=== PATIENT | female | born 1960 | race Caucasian/White ===

== ENCOUNTER 2020-12-31 10:29 | Outpatient (CLI) | payer OTHER, SELFPAY ==
--- NOTE | ~2020-12-31 | XR_ITS ---
XR lumbar spine 2-3V DATE: 12/31/2020 11:07 INDICATION: Low back pain TECHNIQUE: AP, lateral, coned lateral lumbosacral views COMPARISON: None FINDINGS: There is degenerative spurring of the lower thoracic spine. Prominent confluent spurring at L1-2. There is moderate degenerative spurring at L2-3 and L4-5. There is moderately prominent loss of height at L1-2 and L2-3. No fracture or bone destruction is evident. The lumbar pedicles are intact. No spondylolisthesis. The sacroiliac joints appear normal. Surgical clips, right upper quadrant, likely due to cholecystectomy. A linear opacity overlies the pelvis right of midline, possibly an IUD? IMPRESSION: Multilevel degenerative disc disease Reviewed, dictated and finalized at location A. [employer]
[2020-12-31 18:58] LABS: Basophils Absolute Auto 0.1 K/mm3 (0.0-0.1); Basophils Percent Auto 1.1 % (0.2-1.2); Eosinophils Absolute Auto 0.1 K/mm3 (0-0.3); Eosinophils Percent Auto 2.7 % (0-4.4); Hematocrit 46.2 % (37.0-47.0); Hemoglobin 14.7 g/dL (12.0-15.0); Immature Granulocyte Absolute 0.01 K/mm3 (0.00-0.031); Immature Granulocyte Percent A 0.2 % (0-0.5); Lymphocytes Absolute Auto 1.16 K/mm3 (0.9-3.2); Lymphocytes Percent Auto 26.1 % (18.3-44.2); Mean Corpuscular HGB Conc 31.8 g/dl (32-36); Mean Corpuscular Hemoglobin 29.7 pg (26-34); Mean Corpuscular Volume 93.3 fl (80-100); Mean Platelet Volume 10.5 fl (7.4-10.4); Monocytes Absolute Auto 0.4 K/mm3 (0.1-0.6); Monocytes Percent Auto 8.1 % (2.6-8.5); Neutrophils Absolute Auto 2.8 K/mm3 (1.3-6.7); Neutrophils Percent Auto 61.8 % (45.5-73.1); Platelet Count Result 230 k/mm3 (150-375); Red Blood Count 4.95 M/mm3 (4.2-5.4); Red Cell Distribution Width 13.3 % (11.5-14.5); White Blood Count 4.5 K/mm3 (4.5-10.0)
[2020-12-31 19:05] LABS: Add Urine Microscopic? YES; Amorphous Sediment Urine Few; Appearance Urine Cloudy (Clear); Bacteria Urine 1+ /hpf; Bilirubin Urine Negative (Negative); Blood Urine 2+ (Negative); Color Urine Yellow (Yellow); Glucose Urine UA Negative (Negative); Ketones Urine Negative (Negative); Leukocyte Esterase Ur 3+ LEU/UL (Negative); Mucus Urine Rare /lpf; Nitrate Urine Negative (Negative); Protein Urine 1+ mg/dL (Negative); Specific Grav Ur 1.018 (1.001-1.035); Squamous Epithelial Cell Urine Many /hpf (Few); Urobilinogen Urine Negative mg/dL (<2.0); WBC Urine >75 /hpf
[2020-12-31 19:06] LABS: Alanine Aminotransferase 28 U/L (4-35); Albumin Level 4.3 g/dL (3.5-5.1); Alkaline Phosphatase 108 U/L (38-126); Anion Gap 7 mmol/L (8-16); Aspartate Amino Transferase 32 U/L (14-36); Bilirubin,Total 0.5 mg/dL (0.2-1.3); Blood Urea Nitrogen 23 mg/dL (7-17); Calcium 9.2 mg/dL (8.4-10.2); Carbon Dioxide 28 mmol/L (22-30); Chloride 104 mmol/L (98-107); Cholesterol 230 mg/dL (0-200); Estimated Glomerular Filt Rate > 60; Glucose 102 mg/dL (65-105); HDL Direct 53 mg/dL; Potassium 4.6 mmol/L (3.4-5.0); Sodium 139 mmol/L (137-145); Triglycerides 122 mg/dL (<150)
[2020-12-31 19:17] LABS: LDL Cholesterol Direct 170 mg/dL
[2020-12-31 19:22] LABS: Free T4 Free Thyroxine 0.94 ng/mL (0.78-2.19)
[2020-12-31 19:23] LABS: Vitamin D 25 Hydroxy 23.6 ng/mL
[2020-12-31 20:12] LABS: Folic Acid 9.4 ng/mL (2.76->20)
[2021-01-03 06:00] LABS: C-Peptide 3.52 ng/mL (0.80-3.85)
[2021-01-03 06:03] LABS: Triiodothyronine T3 Free 2.8 pg/mL (2.3-4.2)
== END 2020-12-31 10:30 | disposition home or self-care (01) ==
LOC: ANHBWCLAB 10:34
PROVIDERS: PCP Family Medicine; Visit Provider Internal Medicine Endocrinology, Diabetes & Metabolism
DX: E03.9 Hypothyroidism, unspecified (principal); E66.9 Obesity, unspecified; R32 Unspecified urinary incontinence; Z79.899 Other long term (current) drug therapy; Z82.62 Family history of osteoporosis; Z98.84 Bariatric surgery status; M51.36 Other intervertebral disc degeneration, lumbar region; E53.8 Deficiency of other specified B group vitamins
CPT/HCPCS: 36415; 72100; 80053; 80061; 81001; 82306; 82607; 82746; 84439; 84443; 84481; 84681; 85025; 87086; 87088

== ENCOUNTER 2021-09-22 07:48 | Outpatient (CLI) | payer OTHER, SELFPAY | END 2021-09-22 07:49 | disposition home or self-care (01) | LOC: ANHAUDIO 07:51 | PROVIDERS: PCP Family Medicine; Visit Provider Family Medicine | DX: R42 Dizziness and giddiness (principal) | CPT/HCPCS: 99199 ==

== ENCOUNTER 2022-01-10 08:44 | Outpatient (RCR) | payer OTHER, SELFPAY ==
--- NOTE | 2022-01-10 09:52 | PTOPEVAL ---
PHYSICAL THERAPY EVALUATION AND PLAN OF CARE 01-10-22 Thank you for referring Ann Marie Rae to [facility], for the diagnosis of dizziness. The evaluation was performed and Eply maneuver was performed for BPPV. Education was provided. She is to call for any further questions or if needs additional treatment. The plan of care is? 0-2 x/week for 4 weeks. Please review, sign, date and return this plan of care BETTYE. I agree with and certify that the following plan of care is medically necessary. Referring Physician Date Attending Provider: Aiden Fu MD *PT Outpatient Evaluation Start: 01/10/22 09:05 Document 01/10/22 09:00 CHRISTIANE (Rec: 01/10/22 09:52 CHRISTIANE [id number]) Past Medical History Source of Past Medical History Recalled from Previous Visit, Confirmed with Patient/Family Neurological History Hx Neurological Disorders No Significant History Cardiovascular History Hx Cardiac Disorders No Significant History Respiratory History Hx COVID-19 Yes: Nov 2021 for 5 days Gastrointestinal History Hx Gastric Bypass Surgery Yes: LAP BAND Hx Gastroesophageal Reflux Disease Yes Genitourinary History Hx Other Genitourinary Disorders Yes: SLING SURGERY, INCONTINENCE Musculoskeletal History Hx Other Musculoskeletal Disorders Yes: BAKARI. CARPAL TUNNEL RELEASE Endocrine History Hx Hypothyroidism Yes: meds HEENT History Hx Sinus Problems Yes: seasonal allergies- PRN meds Hx Other HEENT Disorders Yes: glasses- just got new glasses;blind L eye since 1977 Integumentary History Hx Skin Disorders No Significant History Reproductive History Hx Post Menopausal Yes Psychosocial History Hx Depression Yes Diagnosis dizziness Onset Aug 2020 Subjective Information Velma reports: have had Query Text:As Reported By Patient/ dizziness for awhile, but Family increasing and decided to talk with dr about it; Prior Level of Function Activity Level (Last 3 Months) 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
--- NOTE | 2022-02-07 09:50 | PCPTNOTE ---
PHYSICAL THERAPY DISCHARGE 02-07-22 Attending Provider: Aiden Fu MD Patient:Ann Marie Rae Date of :1960 Velma has not returned for any further treatments since the initial evaluation on 01/10/2022, for the diagnosis of vertigo. Therefore she will be discharged at this time. The goals were not addressed. Thank you [facility]. Please review, sign, date and return this discharge summary BETTYE. I have been updated about the patient's current status and I agree with discharge from the above service at this time. Referring Physician Date
== END 2022-02-07 15:11 | disposition home or self-care (01) ==
LOC: ANHPT 08:44
PROVIDERS: PCP Family Medicine; Visit Provider Family Medicine
DX: R42 Dizziness and giddiness (principal)
CPT/HCPCS: 97161

== ENCOUNTER 2022-06-09 15:43 | Emergency (ER) | payer OTHER, SELFPAY ==
--- NOTE | ~2022-06-09 | XR_ITS ---
XR foot RT min 3V DATE: 06/09/2022 16:09 INDICATION: Dorsal foot pain TECHNIQUE: 4 views COMPARISON: None FINDINGS: Minimal plantar and mild posterior calcaneal enthesopathy. Hammertoe deformities at second through fifth toes. Probable old healed fracture deformity of the middle phalanx of the third toe. No fracture or dislocation, periosteal reaction or bone destruction is detected. IMPRESSION: Calcaneal enthesopathy Probable old healed fracture deformity of middle phalanx of third digit Reviewed, dictated and finalized at location A.
--- NOTE | 2022-06-09 15:45 | ED.LOWEXIN ---
HPI - Extremity Injury (Lower) General Stated Complaint: Right Foot Injury Time Seen by Provider: 06/09/22 15:45 Source: patient Mode of arrival: ambulatory Limitations: no limitations History of Present Illness HPI Narrative: Ms. Rae is a 62-year-old female patient presenting to the clinic today with complaints of right foot pain since Monday. She reports no injury but she was carrying some heavy sandbags. She denies dropping anything on the top of her foot. Has tenderness to the top of her foot that is aggravated with walking. Related Data Home Medications Medication Instructions Recorded Confirmed levothyroxine 75 mcg tablet 75 mcg PO DAILY 12/31/20 08/10/21 (Synthroid) omeprazole 40 mg capsule,delayed 40 mg PO DAILY 08/10/21 08/10/21 release lorazepam 1 mg tablet 1 mg PO DAILY PRN Anxiety 06/09/22 06/09/22 venlafaxine 75 mg capsule,extended 37.5 mg PO DAILY 06/09/22 06/09/22 release 24 hr vitamin E 1,000 unit tablet 1 tablet PO DAILY 06/09/22 06/09/22 Allergies Allergy/AdvReac Type Severity Reaction Status Date / Time No Known Allergies Allergy Verified 06/09/22 15:56 Review of Systems Review of Systems: Pertinent positives per HPI. Patient denies any fever, chills, rash, headache, visual changes, dizziness, cough, runny nose, sore throat, shortness of breath, chest pain, palpitations, nausea, vomiting, diarrhea, constipation, abdominal pain, or any urinary issues. [facility] Past Medical History Medical History Ulna fracture Surgical History Surgical History History of carpal tunnel release History of cholecystectomy History of removal of laparoscopic gastric banding device Hx of gastric bypass LAP-BAND surgery status Family History Family History Grandparent Family history of premature coronary heart disease, Onset Age: 45 Family history of malignant neoplasm of breast, Onset Age: 45 Diabetes mellitus Mother Hypertension Family history of elevated blood lipids Family history of coronary artery disease Family history of cardiovascular disease Sibling Hypertension Family history of elevated blood lipids Family history of development disorder Family history of cardiovascular disease Father Family history of coronary artery disease Family history of cardiovascular disease Social History Social History Smoking status: Never smoker Second hand tobacco smoke exposure: Yes Alcohol intake: current Alcohol use details: 1 time a month Substance use: never Comments At the time of my signature, I reviewed and agree with the nursing past medical, surgical, social, and family history. There is no relevant family history pertinent to the patient complaint. Exam Narrative: General: Well-developed, overweight, in no apparent distress Head: Normocephalic, atraumatic. Cardio: Regular rate and rhythm, s1 and s2 normal, no murmur appreciated. Resp: Clear to auscultation bilaterally, no rhonchi, rales, wheezing or rubs. Musculoskeletal: No deformity, -tender to palpation over the dorsal proximal foot, pain with plantar and dorsal flexion, grossly normal range of motion, muscle strength strong and equal, peripheral pulse strong, no edema, no cyanosis, normal gait and station Course Course Emergency Course: Portions of this record may have been created with voice recognition software. Level of Care: Express Care Visit Vital Signs Vital signs: Vital signs reviewed MDM - Extremity Injury (Lower) MDM Narrative Medical decision making narrative: At the time of visit patient was resting comfortably on the exam table. Differential Diagnosis Differential diagnosis: Likely other (Foot fracture, foot sprain) Imaging Data Radiologi
[2022-06-09 15:50] VITALS: BP 150/84; PULSE 74; RESP 16; TEMP 37.2; O2SAT 100
[2022-06-09 16:01] VITALS: BP 150/84; PULSE 74; RESP 16; TEMP 37.2; O2SAT 100
== END 2022-06-09 16:25 | disposition home or self-care (01) ==
LOC: EXPBETH 15:47
PROVIDERS: Emergency Provider Nurse Practitioner Family; PCP Family Medicine
DX: M79.671 Pain in right foot (principal); Z98.84 Bariatric surgery status
CPT/HCPCS: 73630; 99213; G0463

== ENCOUNTER 2023-01-17 08:14 | Outpatient (CLI) | payer OTHER, SELFPAY ==
[2023-01-17 18:50] LABS: Eosinophils Absolute Auto 0.1 K/mm3 (0-0.3); Eosinophils Percent Auto 1.5 % (0-4.4); Hematocrit 42.8 % (37.0-47.0); Hemoglobin 13.5 g/dL (12.0-15.0); Immature Granulocyte Absolute 0.01 K/mm3 (0.00-0.031); Immature Granulocyte Percent A 0.2 % (0-0.5); Lymphocytes Absolute Auto 1.48 K/mm3 (0.9-3.2); Lymphocytes Percent Auto 36.3 % (18.3-44.2); Mean Corpuscular HGB Conc 31.5 g/dl (32-36); Mean Corpuscular Hemoglobin 30.3 pg (26-34); Monocytes Absolute Auto 0.2 K/mm3 (0.1-0.6); Monocytes Percent Auto 4.9 % (2.6-8.5); Neutrophils Absolute Auto 2.3 K/mm3 (1.3-6.7); Neutrophils Percent Auto 56.1 % (45.5-73.1); Platelet Count Result 199 k/mm3 (150-375); Red Blood Count 4.46 M/mm3 (4.2-5.4); Red Cell Distribution Width 13.5 % (11.5-14.5); White Blood Count 4.1 K/mm3 (4.5-10.0)
[2023-01-17 19:32] LABS: Free T4 Free Thyroxine 1.34 ng/mL (0.78-2.19); Vitamin D 25 Hydroxy 21.4 ng/mL
[2023-01-17 19:38] LABS: Alanine Aminotransferase 17 U/L (6-35); Albumin Level 4.3 g/dL (3.5-5.1); Alkaline Phosphatase 106 U/L (38-126); Anion Gap 5 mmol/L (8-16); Aspartate Amino Transferase 39 U/L (14-36); Bilirubin,Total 0.7 mg/dL (0.2-1.3); Blood Urea Nitrogen 16 mg/dL (7-17); Calcium 9.1 mg/dL (8.4-10.2); Carbon Dioxide 31 mmol/L (22-30); Chloride 103 mmol/L (98-107); Cholesterol 233 mg/dL (0-200); Estimated Glomerular Filt Rate > 60; Glucose 129 mg/dL (65-110); HDL Direct 58 mg/dL; Potassium 3.6 mmol/L (3.4-5.0); Sodium 139 mmol/L (137-145); Triglycerides 93 mg/dL (<150)
[2023-01-17 19:50] LABS: LDL Cholesterol Direct 131 mg/dL
[2023-01-17 20:08] LABS: Thyroid Stimulating Hormone 0.924 uIU/mL (0.465-4.680)
[2023-01-17 20:39] LABS: Folic Acid 8.7 ng/mL (2.76->20)
[2023-01-20 04:50] LABS: Triiodothyronine T3 Free 2.6 pg/mL (2.3-4.2)
== END 2023-01-17 08:15 | disposition home or self-care (01) ==
PROVIDERS: PCP Family Medicine; Visit Provider Nurse Practitioner
DX: E03.9 Hypothyroidism, unspecified (principal); E53.8 Deficiency of other specified B group vitamins; E55.9 Vitamin D deficiency, unspecified; R42 Dizziness and giddiness
CPT/HCPCS: 36415; 80053; 80061; 82306; 82607; 82746; 84439; 84443; 84481; 85025

== ENCOUNTER 2023-02-10 15:26 | Outpatient (CLI) | payer OTHER, SELFPAY ==
[2023-02-10 19:34] LABS: Hemoglobin A1C 5.1 % (<5.7)
== END 2023-02-10 15:27 | disposition home or self-care (01) ==
LOC: ANHBWCLAB 15:28
PROVIDERS: PCP Family Medicine; Visit Provider Family Medicine
DX: R73.09 Other abnormal glucose (principal)
CPT/HCPCS: 36415; 83036

== ENCOUNTER 2024-01-03 11:18 | Outpatient (CLI) | payer BC, SELFPAY ==
[2024-01-03 18:59] LABS: Hematocrit 42.7 % (37.0-47.0); Hemoglobin 13.5 g/dL (12.0-15.0); Mean Corpuscular HGB Conc 31.6 g/dl (32-36); Mean Corpuscular Hemoglobin 30.2 pg (26-34); Mean Corpuscular Volume 95.5 fl (80-100); Mean Platelet Volume 10.7 fl (7.4-10.4); Platelet Count Result 234 k/mm3 (150-375); Red Blood Count 4.47 M/mm3 (4.2-5.4); Red Cell Distribution Width 14.5 % (11.5-14.5); White Blood Count 3.8 K/mm3 (4.5-10.0)
[2024-01-03 19:23] LABS: Alanine Aminotransferase 14 U/L (6-35); Albumin Level 4.1 g/dL (3.5-5.1); Alkaline Phosphatase 91 U/L (38-126); Anion Gap 3 mmol/L (8-16); Aspartate Amino Transferase 41 U/L (14-36); Bilirubin,Total 0.8 mg/dL (0.2-1.3); Blood Urea Nitrogen 14 mg/dL (7-17); Calcium 9.3 mg/dL (8.4-10.2); Carbon Dioxide 32 mmol/L (22-30); Chloride 106 mmol/L (98-107); Estimated Glomerular Filt Rate > 60; Glucose 78 mg/dL (65-110); Potassium 4.1 mmol/L (3.4-5.0); Sodium 141 mmol/L (137-145)
[2024-01-03 19:42] LABS: Hemoglobin A1C 5.4 % (<5.7)
== END 2024-01-03 11:19 | disposition home or self-care (01) ==
PROVIDERS: PCP Family Medicine; Visit Provider Family Medicine
DX: F32.9 Major depressive disorder, single episode, unspecified (principal); G47.00 Insomnia, unspecified; R42 Dizziness and giddiness; R74.01 Elevation of levels of liver transaminase levels; E03.9 Hypothyroidism, unspecified; R73.09 Other abnormal glucose
CPT/HCPCS: 36415; 80053; 83036; 84443; 85027

== ENCOUNTER 2024-08-01 15:47 | Outpatient (CLI) | payer BC, SELFPAY ==
--- NOTE | ~2024-08-01 | XR_ITS ---
EXAMINATION: XR_CERV2-3V_CR DATE: 08/01/2024 16:18 INDICATION: Unspecified fall, initial encounter. TECHNIQUE: 3 views of cervical spine were obtained. COMPARISON: None. FINDINGS: Alignment is normal. Vertebral body heights are normal. Intervertebral disc heights are nor mal. There are bulky anterior osteophytes from C4-C5 through C6-C7. There is multilevel mild facet priyanka int osteoarthritis. No central canal stenosis or prevertebral soft tissue swelling. IMPRESSION: 1. Mild cervical spondylosis. Reviewed, dictated and finalized at location A.
--- NOTE | ~2024-08-01 | XR_ITS ---
EXAMINATION: XR shoulder RT min 2V DATE: 08/01/2024 16:18 INDICATION: Unspecified fall, initial encounter. TECHNIQUE: 4 views of right shoulder were obtained. COMPARISON: None. FINDINGS: Alignment is normal. No fracture. There is mild osteoarthritis of glenohumeral joint and se adriano osteoarthritis of acromioclavicular joint. IMPRESSION: 1. Polyarticular osteoarthritis. Reviewed, dictated and finalized at location A.
[2024-08-01 18:37] LABS: Hematocrit 43.6 % (37.0-47.0); Hemoglobin 13.7 g/dL (12.0-15.0); Mean Corpuscular HGB Conc 31.4 g/dl (32-36); Mean Corpuscular Volume 95.6 fl (80-100); Mean Platelet Volume 10.8 fl (7.4-10.4); Platelet Count Result 221 k/mm3 (150-375); Red Blood Count 4.56 M/mm3 (4.2-5.4); Red Cell Distribution Width 13.2 % (11.5-14.5); White Blood Count 5.4 K/mm3 (4.5-10.0)
[2024-08-01 18:44] LABS: Alanine Aminotransferase 17 U/L (6-35); Albumin Level 3.9 g/dL (3.5-5.1); Alkaline Phosphatase 79 U/L (38-126); Anion Gap 9 mmol/L (4-12); Aspartate Amino Transferase 45 U/L (14-36); Bilirubin,Total 0.6 mg/dL (0.2-1.3); Blood Urea Nitrogen 19 mg/dL (7-17); Calcium 8.7 mg/dL (8.4-10.2); Carbon Dioxide 26 mmol/L (22-30); Chloride 103 mmol/L (98-107); Cholesterol 196 mg/dL (0-200); Estimated Glomerular Filt Rate > 60; Glucose 88 mg/dL (65-110); HDL Direct 58 mg/dL; Potassium 3.7 mmol/L (3.4-5.0); Sodium 138 mmol/L (137-145); Triglycerides 109 mg/dL (<150)
[2024-08-01 18:55] LABS: LDL Cholesterol Direct 120 mg/dL
== END 2024-08-01 15:48 | disposition home or self-care (01) ==
LOC: ANHBWCLAB 15:53
PROVIDERS: PCP Nurse Practitioner Adult Health; Visit Provider Nurse Practitioner Adult Health
DX: Z13.9 Encounter for screening, unspecified (principal); M47.892 Other spondylosis, cervical region; M19.011 Primary osteoarthritis, right shoulder
CPT/HCPCS: 36415; 72040; 73030; 80053; 80061; 84443; 85027

== ENCOUNTER 2024-08-05 12:22 | Outpatient (CLI) | payer BC, SELFPAY ==
--- NOTE | ~2024-08-05 | MM_ITS ---
EXAMINATION: MM screening [facility] BI w gladis HISTORY: Screening mammogram TECHNIQUE: Craniocaudal and mediolateral oblique 3-D tomosynthesis images were obtained and synthetic 2-D images were generated. CAD analysis was submitted and interpreted. COMPARISON: 09/29/2010 BREAST PARENCHYMAL COMPOSITION:Dense: The breasts are heterogeneously dense, which may obscure small masses. FINDINGS: Small bilateral circumscribed low-density masses are most compatible bilateral intramammary lymph nodes. No suspicious mass, calcification, or architectural distortion are identified in either breast to suggest malignancy. There has been no suspicious interval change. IMPRESSION: No mammographic evidence of malignancy. Recommend routine screening mammography in one year. BI-RADS Category 2: Benign finding(s). Reviewed, dictated and finalized at location .
== END 2024-08-05 12:23 | disposition home or self-care (01) ==
LOC: ANHIMG 12:25
PROVIDERS: PCP Nurse Practitioner Adult Health; Visit Provider Nurse Practitioner Adult Health
DX: Z12.31 Encounter for screening mammogram for malignant neoplasm of breast (principal)
CPT/HCPCS: 77063; 77067

== ENCOUNTER 2024-10-17 09:20 | Outpatient (CLI) | payer BC, SELFPAY ==
--- NOTE | ~2024-10-17 | XR_ITS ---
AP and lateral views of the right femur Clinical History: Pain Findings: No acute fracture or dislocation is seen. Osseous alignment is anatomic. Visualized joint s paces are grossly preserved. Soft tissues are unremarkable. Impression: Unremarkable right femoral radiographs. Reviewed, dictated and finalized at location M. IN TECHNICIAN Impression: Unremarkable right femoral radiographs.
== END 2024-10-17 09:21 | disposition home or self-care (01) ==
LOC: ANHBWCIMG 09:21
PROVIDERS: PCP Nurse Practitioner Adult Health; Visit Provider Nurse Practitioner Adult Health
DX: M79.604 Pain in right leg (principal)
CPT/HCPCS: 73552

== ENCOUNTER 2025-02-03 14:39 | Outpatient (CLI) | payer BC, SELFPAY ==
--- OUTSIDE RECORDS SUMMARY | 2025-02-03 17:06 | XMS_ITS | Clinical Summary ---
Author Organization [facility] [employer] Address [address] [place] [address] Care Team Providers Care Dietary Supervisor Name Role Phone Aiden Fu MD Primary Care Provider [phone] Source Comments [facility] [employer],non-owned Affiliates and Associated Physician Practices is amultiple site organization consisting of ambulatory clinics and hospital sitesin [place], [place], [place]. This disclosure is being madepursuant to the Care Everywhere program and may not contain all information available regarding this patient. Last updated 18.[employer] Allergies No known active allergies Medications * Be aware that medications may not be up to date on this document. Alwaysverify current medications with the patient. Medication Sig Dispensed Refills Start Date End Date Status levothyroxine (SYNTHROID) 88 MCG tablet Take 1 (one) tablet by mouth once daily 01/14/2021 Active oxybutynin CR 24hr (DITROPAN-XL) 10 MG tablet Take 1 (one) tablet by mouth once daily Active venlafaxine (EFFEXOR) 37.5 MG tablet 12/16/2021 Active Vitamin E 180 MG (400 UNIT) CAPS Take 1 (one) capsule by mouth 3 times daily Active tuberculin syringe-needle 27G X 1/2 1 ML syringe BD SafetyGlide Tuberculin Regular Bevel 1 mL 27 x 1/2 syringe Active Cholecalciferol (Vitamin D3) 25 MCG (1000 UT) Take 1 (one) capsule by mouth once daily 30 capsule 09/19/2023 Active Additional Information Patient not taking.Reported on 12/26/2023 triamcinolone acetonide (Kenalog) 0.1 % ointment 03/12/2024 Active phentermine (Adipex-P) 37.5 MG tablet Take 1 (one) tablet by mouth daily before breakfast 30 tablet 5 09/17/2024 Active Active Problems Problem Noted Date Diagnosed Date Excessive daytime sleepiness 07/12/2022 Chronic fatigue 07/12/2022 Benign paroxysmal positional vertigo 07/12/2022 Vitamin B12 deficiency (non anemic) 02/22/2022 Vitamin D deficiency 02/22/2022 Menopause 09/27/2019 Folate deficiency 03/29/2019 Depressive disorder 04/04/2018 Venous insufficiency of leg 04/04/2018 Overactive bladder 06/21/2016 Major depressive disorder, recurrent, moderate 0 02/07/2016 Obesity 09/29/2015 Hypothyroidism 09/10/2015 Insomnia 10/22/2012 Restless legs syndrome 10/22/2012 Allergic rhinitis due to pollen 02/17/2012 Gastro-esophageal reflux disease without esophag itis 01/21/2012 Obstructive sleep apnea 01/21/2012 Gastric banding status 01/21/2012 Immunizations Name Administration Dates Next Due INFLUENZA VACCINE, TRIV. (AF LURIA, FLUZONE TRIVALENT; 6MO+) (IIV3) 08/30/2017,09/15/2015,08/27/2014,2012 Covid Moderna primary monova lent 12+ yr 0.5mL 03/05/2021,02/06/2021 HepB Unspecified formulation 03/27/2011 INFLUENZA VACCINE 08/29/2018 TDAP (7yrs+) 08/27/2014 Family History Medical History Relation Name Comments Diabetes Brother 1 Status: Alive Hypertension Brother 1 Sleep Disorder - Other Brother 1 cpap Diabetes - Type 2 Brother 2 Other Brother 3 pancreas explod ed and spent 10 months in hospital Heart Failure Father Status: Deceas ed Cancer Maternal Grandmother breast; Status: Bipolar Disorder Maternal Uncle Arthritis - Osteo Mother Cataract Mother Heart Failure Mother Status: Deceas ed Hypertension Mother Heart Failure Paternal Grandmother Status : Relation Name Status Comments Brother 1 Alive Brother 2 Alive Brother 3 Father Maternal Grandfather Maternal Grandmother Maternal Uncle Mother Paternal Grandfather Paternal Grandmother Social History Tobacco Use Types Packs/Day Years Used Date Smoking Tobacco: Never Smokeless Tobacco: Never Tobacco Cessation:Counseling Given: Not Answered Alcohol Use Standard Drinks/Week Comments Yes 1.7 (1 standard drink = 0.6 oz p ure alcohol) about 1x/mo AUDIT-C Answer Date Recorded Frequency of Alcohol Consumption 2-4 times a mon10/14/2020 Average Number of Drinks Not on file 020 Frequency of Binge Drinking Not on file 09/27 Sex and Gender Information Value Date Recorded Sex Assigned at Not on file Gender Identity Not on file Sexual Orientation Straight 06/09/2021 2: 00 PM CDT Last Filed Vital Signs Vital Sign Reading Time Taken Comments Blood Pressure 132/80 09/17/2024 12:24 PM CDT Pulse 76 09/17/2024 12:24 PM CDT Temperature 36.4 C (97.6 F) 09/17/2024 12:24 PM CDT Respiratory Rate 16 08/22/2023 1:19 PM CDT Oxygen Saturation 98% 09/17/2024 12:24 PM CDT Inhaled Oxygen Concentration - - Weight 88.9 kg (196 lb) 09/17/2024 12:24 PM CDT Height 162.6 cm (5' 4 ) 09/17/2024 12:24 PM CDT Body Mass Index 33.64 09/17/2024 12:24 PM CDT Plan of Treatment Upcoming Encounters Date Type Department Care Team (Late st Contact Info) Description 03/18/2025 12:40 PM CDT Office Visit [facility] [address] [place] [address], [address] [address] [address] Bernabe, BUCK 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[employer] PUMP OPERATOR [address] [place] [address] 09/17/2025 1:00 PM CDT Office Visit [facility] [address] [place] [address], [address] [place] [address] Laney Bernabe, [employer] 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 PU[employer] OPERATOR [address] [place] [address] Health Maintenance Due Date Last Done Comments COLON MONITORING 1960 CT COLONOGRAPHY - COLON CA SCREENING 1960 FIT - COLON CA SCREENING 1960 FLEX SIG - COLON CA SCREENING 1960 HIV SCREENING 1975 HEPATITIS C SCREENING 03/26/1978 PNEUMOCOCCAL VACCINE 50+ (1 of 1 - PCV) 2010 ZOSTER VACCINE (1 of 2) 2010 HEPATITIS B VACCINE (2 of 3 - 19+ 3-dose series) 04/24/2011 03/27/2011 PAP SMEAR 11/29/2019 11/29/2016 (Done Outside Per Report) MAMMOGRAM 03/23/2020 03/23/2018, 12/05/2016, 09/25/2015, Additional history exists Respiratory Syncytial Virus (RSV) Vaccine Pt: or over 60 yrs (1 - Risk 60-74 years 1-dose series) 2020 COLONOSCOPY - COLON CA SCREENING 06/27/2020 06/27/2010 (Done Outside Per Report) COVID-19 VACCINE (3 - season) 2024 03/05/2021, 02/06/2021 INFLUENZA VACCINE (#1) 2024 8, 08/30/2017, 09/15/2015, Additional history exists DTAP/TDAP/TD VACCINES (2 - Td or Tdap) 08/27/2024 08/27/2014 DEPRESSION SCREENING 11/27/2024 LIPID TESTING 12/02/2024 12/02/2019, 12/12/2018, 10/05/2017, Additional history exists COLOGUARD (AGES 45-75) - COLON CA SCREENING 02/10/2027 02/11/2024 Colorectal Cancer Screening 02/10/2027 SCREENING FOR DIABETES 06/05/2027 , 08/29/2023, 09/13/2022, Additional history exists HIB VACCINE Aged Out No longer eligi ble based on patient's age to complete this topic HPV VACCINE Aged Out No longer eligi ble based on patient's age to complete this topic MENINGOCOCCAL (Group B) VACCINE Aged Out No longer eligible based on patient's age to complete this topic MENINGOCOCCAL VACCINE Aged Out No shashank lisa eligible based on patient's age to complete this topic Procedures Procedure Name Priority Date/Time Associated Diagnosis Comments COMPREHENSIVE METABOLIC PANEL Routine 06/05/2024 12:32 PM CDT History of gastric bypass LIPID PROFILE Routine 12/02/2019 3:58 PM MEDICAL SUPERVISOR Dyslipidemia Hypothyroidism, unspecified type MAMMO BILAT SCREENING Routine 03/23/2018 8:54 AM CDT Screening for breast cancer from Last 3 Months or Most Recently Relevant to Health Maintenance Results * (ABNORMAL) COMPREHENSIVE METABOLIC PANEL (06/05/2024 12:32 PM CDT) BUN 16 7 - 26 mg/dL 06/05/2024 1:54 PM [facility] Creatinine 0.89 0.56 - 0.96 mg/dL 06/05/2024 1:54 PM [facility] Sodium 142 136 - 145 mmol/L 06/05/2024 1:54 PM [facility] Potassium 4.4 3.5 - 4.5 mmol/L 06/05/2024 1:54 PM [facility] Chloride 106 98 - 107 mmol/L 06/05/2024 1:54 PM [facility] CO2 28 22 - 29 mmol/L 06/05/2024 1:54 PM [facility] Glucose 85 70 - 115 mg/dL 06/05/2024 1:54 PM [facility] Calcium 9.6 8.4 - 10.2 mg/dL 06/05/2024 1:54 PM [facility] Protein Total 7.7 6.0 - 8.3 g/dL 06/05/2024 1:54 PM [facility] Albumin 4.0 3.4 - 5.0 g/dL 06/05/2024 1:54 PM [facility] Bilirubin Total 0.6 0.2 - 1.2 mg/dL 06/05/2024 1:54 PM [facility] Alkaline Phosphatase 96 40 - 150 U/L 06/05/2024 1:54 PM [facility] ALT 15 5 - 55 U/L 06/05[facility]24 [facility] 24 5 - 34 U/L 06/05/2024 1:54 PM [facility] Anion Gap 8 6 - 16 06/05/2024 1:54 PM [facility] BUN/Creatinine Ratio 18 7 - 23 06/05/2024 1:54 PM [facility] Osmolality Calculated 294 275 - 295 mOsm/kg 06/05/2024 1:54 PM [facility] Albumin/Globulin Ratio 1.1 1.1 - 2.3 06/05/2024 1:54 PM [facility] eGFR by CKD-EPI 72(L) >=90 mL/min/1.7 3 m2 06/05/2024 1:54 PM [facility] Blood BLOOD SPECIMEN / Unknown Lab Venipuncture / Unknown 06/05/2024 12:32 PM CDT 06/05/2024 1:22 PM [facility] Mateo Dash MD LAB - CHEMISTRY ORDE BRYANT [facility] Organization Address City/State/ZIP Co de Phone Number [facility] [address] [place] [address], [facility] [phone] * (ABNORMAL) LIPID PROFILE (12/02/2019 3:58 PM MEDICAL SUPERVISOR) Cholesterol Total 232(H) <200 mg/dL 12/02/2019 4:42 PM [facility] HDL 55 >40 mg/dL 12/02/2019 4:42 PM [facility] Comment: ATP III Classification of HDL Cholesterol: <40 mg/dL: Considered a major risk factor. >60 mg/dL: Considered a negative risk factor. LDL Calculated 151(H) <100 mg/dL 12/02/2019 4:42 PM [facility] Comment: ATP III Classification of LDL Cholesterol: <100 mg/dL: Optimal 100 - 129 mg/dL: Near Optimal/Above Optimal 130 - 159 mg/dL: Borderline High 160 - 189 mg/dL: High >190 mg/dL: Very High Triglycerides 128 <150 mg/dL 12/02/2019 4:42 PM [facility] Comment: ATP III Classification of Triglycerides: <150 mg/dL: Normal 150 - 199 mg/dL: Borderline High 200 - 400 mg/dL: High >500 mg/dL: Very High Blood BLOOD SPECIMEN / Unknown Lab Venipuncture / Unknown 12/02/2019 3:58 PM MEDICAL SUPERVISOR 12/02/2019 4:14 PM MEDICAL SUPERVISOR Ordering Provider Unlisted LAB - CHEM ISTRY ORDERABLES [address] [phone] * MAMMO BILAT SCREENING (03/23/2018 8:54 AM CDT) Anatomical Region Laterality Modality Breast Bilateral Mammography 03/26/2018 8:30 AM CDT Impressions 03/26/2018 8:43 AM CDT IMPRESSION: No mammographic evidence of malignancy. ASSESSMENT: BI-RADS Category 1: Negative mammogram. RECOMMENDATION: Bilateral screening mammogram in one year. Dictated by Maxim Salgado (Corporate Coordinator) I, Dr. EVIN GRISSOM M.D. have personally reviewed and interpreted this examination/study. This report was electronically signed by EVIN GRISSOM M.D. on 03/26/2018 8:43 AM . Narrative 03/26/2018 8:43 AM CDT BILATERAL SCREENING MAMMOGRAM DATE: March 23, 2018. COMPARISON: Multiple prior mammograms, most recently November 02, 2016 and September 25, 2015. HISTORY: Screening mammogram. TECHNIQUE: Images were performed using 3D tomosynthesis images with reconstructed/synthetic 2D images and CAD analysis. BREAST COMPOSITION: The breasts are heterogeneously dense, which may obscure small masses. FINDINGS: There is no suspicious mass, clustered microcalcification, or architectural distortion in either breast. There has been no change in the mammographic appearance compared with the prior study. Warren Pacheco MD MAMMO ORDERABLES from Last 3 Months or Most Recently Relevant to Health Maintenance Advance Directives * Full Code (Latest Code Status on File) Date Activated Date Inactivated Comments 06/28/2021 12:41 PM 06/29/2021 7:19 PM Care Teams Dietary Supervisor Relationship Specialty Start Date End Date Aiden Fu MD [address] [place] [id number] PCP - General 09/10/21
--- OUTSIDE RECORDS SUMMARY | 2025-02-03 17:06 | XMS_ITS | Patient Health Summary ---
Author Organization [facility] Address [address] [place] [address] Care Team Providers Care Chief Operating Engineer Name Role Phone Aiden Fu MD Primary Care Provider [phone] Note from [facility],non-owned Affiliates and Associated Physician Practices is amultiple site organization consisting of ambulatory clinics and hospital sitesin [place], [place], [place] and [place]. This disclosure is being madepursuant to the Care Everywhere program and may not contain all information available regarding this patient. Last updated 18.[facility] Allergies No known active allergies Medications * Be aware that medications may not be up to date on this document. Alwaysverify current medications with the patient. * levothyroxine (SYNTHROID) 88 MCG tablet(Started 01/14/2021) Take 1 (one) tablet by mouth once daily * oxybutynin CR 24hr (DITROPAN-XL) 10 MG tablet Take 1 (one) tablet by mouth once daily * venlafaxine (EFFEXOR) 37.5 MG tablet(Started 12/16/2021) * Vitamin E 180 MG (400 UNIT) CAPS Take 1 (one) capsule by mouth 3 times daily * tuberculin syringe-needle 27G X 1/2 1 ML syringe BD SafetyGlide Tuberculin Regular Bevel 1 mL 27 x 1/2 syringe * Cholecalciferol (Vitamin D3) 25 MCG (1000 UT)(Started 09/19/2023) Take 1 (one) capsule by mouth once daily * triamcinolone acetonide (Kenalog) 0.1 % ointment(Started 03/12/2024) * phentermine (Adipex-P) 37.5 MG tablet(Started 09/17/2024) Take 1 (one) tablet by mouth daily before breakfast 5 refills by 03/16/2025 Active Problems Problem Noted Date Diagnosed Date [...] apnea 01/21/2012 Gastric banding status 01/21/2012 Immunizations * INFLUENZA VACCINE, TRIV. (AFLURIA, FLUZONE TRIVALENT; 6MO+) (IIV3)(Given 08/30/2017, 09/15/2015, 08/27/2014, 08/27/2013) * Covid Moderna primary monovalent 12+ yr 0.5mL(Given 03/05/2021, 02/06/2021) * HepB Unspecified formulation(Given 03/27/2011) * INFLUENZA VACCINE(Given 08/29/2018) * TDAP (7yrs+)(Given 08/27/2014) Social History Tobacco Use Types Packs/Day Years [...] Mass Index 33.64 09/17/2024 12:24 PM CDT Procedures * COMPREHENSIVE METABOLIC PANEL(Performed 06/05/2024) Performed for History of gastric bypass * CBC W AUTO DIFFERENTIAL(Performed 06/05/2024) Performed for History of gastric bypass * CBC W AUTO DIFFERENTIAL(Performed 08/29/2023) Performed for Morbid obesity (HCC), S/P bariatric surgery, Other specified intestinal malabsorption(HCC) * FOLATE(Performed 08/29/2023) Performed for Morbid obesity (HCC), S/P bariatric surgery, Other specified intestinal malabsorption(HCC) * VITAMIN B1 PLASMA(Performed 08/29/2023) * ZINC BLOOD(Performed 08/29/2023) Performed for Morbid obesity (HCC), S/P bariatric surgery, Other specified intestinal malabsorption(HCC) * VITAMIN K1(Performed 08/29/2023) Performed for Morbid obesity (HCC), S/P bariatric surgery, Other specified intestinal malabsorption(HCC) * VITAMIN E(Performed 08/29/2023) Performed for Morbid obesity (HCC), S/P bariatric surgery, Other specified intestinal malabsorption(HCC) * VITAMIN D 25-HYDROXY(Performed 08/29/2023) Performed for Morbid obesity (HCC), S/P bariatric surgery, Other specified intestinal malabsorption(HCC) * VITAMIN B12(Performed 08/29/2023) Performed for Morbid obesity (HCC), S/P bariatric surgery, Other specified intestinal malabsorption(HCC) * VITAMIN A(Performed 08/29/2023) Performed for Morbid obesity (HCC), S/P bariatric surgery, Other specified intestinal malabsorption(HCC) * PTH INTACT(Performed 08/29/2023) Performed for Morbid obesity (HCC), S/P bariatric surgery, Other specified intestinal malabsorption(HCC) * PREALBUMIN(Performed 08/29/2023) Performed for Morbid obesity (HCC), S/P bariatric surgery, Other specified intestinal malabsorption(HCC) * IRON + TIBC PANEL(Performed 08/29/2023) Performed for Morbid obesity (HCC), S/P bariatric surgery, Other specified intestinal malabsorption(HCC) * COPPER BLOOD(Performed 08/29/2023) Performed for Morbid obesity (HCC), S/P bariatric surgery, Other specified intestinal malabsorption(HCC) * FERRITIN(Performed 08/29/2023) Performed for Morbid obesity (HCC), S/P bariatric surgery, Other specified intestinal malabsorption(HCC) * COMPREHENSIVE METABOLIC PANEL(Performed 08/29/2023) Performed for Morbid obesity (HCC), S/P bariatric surgery, Other specified intestinal malabsorption(HCC) * ZINC BLOOD(Performed 09/13/2022) * COPPER BLOOD(Performed 09/13/2022) * VITAMIN A(Performed 09/13/2022) * VITAMIN B1(Performed 09/13/2022) * VITAMIN K1(Performed 09/13/2022) * VITAMIN D 25-HYDROXY(Performed 09/13/2022) * VITAMIN E(Performed 09/13/2022) * PTH INTACT(Performed 09/13/2022) * VITAMIN B12(Performed 09/13/2022) * FOLATE(Performed 09/13/2022) * FERRITIN(Performed 09/13/2022) * CBC W/O DIFFERENTIAL(Performed 09/13/2022) * COMPREHENSIVE METABOLIC PANEL(Performed 09/13/2022) * IRON + TIBC PANEL(Performed 09/13/2022) * MAGNESIUM BLOOD(Performed 09/13/2022) * AUDIOLOGY/TYMPANOMETRY ORDER(Performed 08/17/2022) * ZINC BLOOD(Performed 02/03/2022) Performed for Morbid obesity (HCC), Bariatric surgery status, Vitamin deficiency, Vitamin D deficiency, Postsurgical malabsorption (HCC) * VITAMIN K1(Performed 02/03/2022) Performed for Morbid obesity (HCC), Bariatric surgery status, Vitamin deficiency, Vitamin D deficiency, Postsurgical malabsorption (HCC) * VITAMIN E(Performed 02/03/2022) Performed for Morbid obesity (HCC), Bariatric surgery status, Vitamin deficiency, Vitamin D deficiency, Postsurgical malabsorption (HCC) * VITAMIN B1(Performed 02/03/2022) Performed for Morbid obesity (HCC), Bariatric surgery status, Vitamin deficiency, Vitamin D deficiency, Postsurgical malabsorption (HCC) * VITAMIN A(Performed 02/03/2022) Performed for Morbid obesity (HCC), Bariatric surgery status, Vitamin deficiency, Vitamin D deficiency, Postsurgical malabsorption (HCC) * PTH INTACT(Performed 02/03/2022) Performed for Morbid obesity (HCC), Bariatric surgery status, Vitamin deficiency, Vitamin D deficiency, Postsurgical malabsorption (HCC) * MAGNESIUM BLOOD(Performed 02/03/2022) Performed for Morbid obesity (HCC), Bariatric surgery status, Vitamin deficiency, Vitamin D deficiency, Postsurgical malabsorption (HCC) * IRON + TIBC PANEL(Performed 02/03/2022) Performed for Morbid obesity (HCC), Bariatric surgery status, Vitamin deficiency, Vitamin D deficiency, Postsurgical malabsorption (HCC) * FERRITIN(Performed 02/03/2022) Performed for Morbid obesity (HCC), Bariatric surgery status, Vitamin deficiency, Vitamin D deficiency, Postsurgical malabsorption (HCC) * COPPER BLOOD(Performed 02/03/2022) Performed for Morbid obesity (HCC), Bariatric surgery status, Vitamin deficiency, Vitamin D deficiency, Postsurgical malabsorption (HCC) * CBC W/O DIFFERENTIAL(Performed 02/03/2022) Performed for Morbid obesity (HCC), Bariatric surgery status, Vitamin deficiency, Vitamin D deficiency, Postsurgical malabsorption (HCC) * FL UGI SERIES(Performed 06/29/2021) Performed for Class 3 severe obesity without serious comorbidity with body mass index (BMI) of 45.0to 49.9 in adult, unspecified obesity type ([facility]) * GLUCOSE - POINT OF CARE(Performed 06/29/2021) * VITAMIN D 25-HYDROXY(Performed 06/29/2021) * CBC W AUTO DIFFERENTIAL(Performed 06/29/2021) * BASIC METABOLIC PANEL (CALCIUM TOTAL)(Performed 06/29/2021) * GLUCOSE - POINT OF CARE(Performed 06/29/2021) * GLUCOSE - POINT OF CARE(Performed 06/28/2021) * ENDOTRACHEAL TUBE NOTE(Performed 06/28/2021) * LAPAROSCOPIC REVISION GASTRIC BYPASS/SHAKA-EN-Y(Performed 06/28/2021) * POTASSIUM BLOOD(Performed 06/28/2021) Performed for Preop examination * VITAMIN B12(Performed 06/15/2021) Performed for Preop examination * VITAMIN B1(Performed 06/15/2021) Performed for Preop examination * COMPREHENSIVE METABOLIC PANEL(Performed 06/15/2021) Performed for Preop examination * CBC W AUTO DIFFERENTIAL(Performed 06/15/2021) Performed for Preop examination * EKG 12-LEAD(Performed 06/15/2021) Performed for Preop examination * COMPLETE PFT W/WO BRONCHODILATOR(Performed 06/01/2021) Performed for Dyspnea on exertion, Ground glass opacity present on imaging of lung, Class 3 severe obesity with serious comorbidity and body mass index (BMI) of 45.0 to 49.9 in adult, unspecified obesity type (HCC) * ECHO COMPLETE(Performed 06/01/2021) Performed for Dyspnea on exertion, Ground glass opacity present on imaging of lung, Class 3 severe obesity with serious comorbidity and body mass index (BMI) of 45.0 to 49.9 in adult, unspecified obesity type (HCC) * URINALYSIS AUTO - POINT OF CARE (AMB) [facility](Performed 01/26/2021) Performed for Hematuria, unspecified type * FL UGI W AIR CONTRAST(Performed 11/06/2020) Performed for Morbid obesity due to excess calories (HCC), BMI 45.0-49.9, adult (HCC), Hiatal hernia * HELICOBACTER PYLORI UREASE (STL)(Performed 10/08/2020) Performed for Diagnosis unknown * MD ED EGD FLEX TRANSORAL DX(Performed 10/08/2020) * EGD(Performed 10/08/2020) Performed for Status post gastric banding, Preop testing, Morbid obesity (HCC) * ENDOTRACHEAL TUBE NOTE(Performed 07/15/2020) * LAPAROSCOPIC REMOVAL/REPLACEMENT GASTRIC BAND(Performed 07/15/2020) * SARS-COV-2 (COVID-19) IN HOUSE(Performed 07/13/2020) Performed for Preop examination * FL UGI SERIES(Performed 01/20/2020) Performed for Morbid obesity due to excess calories (HCC), Gastroesophageal reflux disease, esophagitis presence not specified, Gastric banding status * FL LAPBAND ADJUST VIA PORT(Performed 12/10/2019) Performed for Gastric banding status * T3 FREE(Performed 12/02/2019) Performed for Dyslipidemia, Hypothyroidism, unspecified type * TSH(Performed 12/02/2019) Performed for Dyslipidemia, Hypothyroidism, unspecified type * T4 FREE(Performed 12/02/2019) Performed for Dyslipidemia, Hypothyroidism, unspecified type * LIPID PROFILE(Performed 12/02/2019) Performed for Dyslipidemia, Hypothyroidism, unspecified type * ALEJANDRA STAINING PATTERNS REFLEXED(Performed 10/28/2019) Performed for Overactive bladder * RHEUMATOID FACTOR BLOOD QUANTITATIVE(Performed 10/28/2019) Performed for Overactive bladder * TSH(Performed 10/28/2019) Performed for Overactive bladder * T3 FREE(Performed 10/28/2019) Performed for Overactive bladder * T4 FREE(Performed 10/28/2019) Performed for Overactive bladder * THYROID PEROXIDASE ANTIBODY(Performed 10/28/2019) Performed for Overactive bladder * COMPREHENSIVE METABOLIC PANEL(Performed 10/28/2019) Performed for Overactive bladder * VITAMIN B12(Performed 10/28/2019) Performed for Overactive bladder * CBC W AUTO DIFFERENTIAL(Performed 10/28/2019) Performed for Overactive bladder * NICOLE BLOOD SCREEN W/REFLEX TITER(Performed 10/28/2019) Performed for Overactive bladder * LIPID PROFILE(Performed 10/28/2019) Performed for Overactive bladder * MD DRAIN/INJECT LARGE JOINT/BURSA(Performed 09/24/2019) Performed for Primary osteoarthritis of right knee * XR KNEE RIGHT 4VW OR MORE(Performed 09/03/2019) Performed for Knee pain, unspecified chronicity, unspecified laterality * XR ELBOW RIGHT 3VW OR MORE(Performed 07/08/2019) Performed for Right elbow pain * THYROID AB PANEL (TPO AB+THYROGLOB AB)(Performed 05/13/2019) Performed for Overactive bladder * ERYTHROCYTE SEDIMENTATION RATE(Performed 05/13/2019) Performed for Overactive bladder * T3 FREE(Performed 05/13/2019) Performed for Overactive bladder * T4 FREE(Performed 05/13/2019) Performed for Overactive bladder * TSH(Performed 05/13/2019) Performed for Overactive bladder * URINALYSIS REFLEX TO MICROSCOPIC NO CULTURE(Performed 03/29/2019) Performed for Overactive bladder, Major depressive disorder, recurrent, moderate (HCC), Phlebitis and thrombophlebitis of other sites * TSH(Performed 03/29/2019) Performed for Overactive bladder, Major depressive disorder, recurrent, moderate (HCC), Phlebitis and thrombophlebitis of other sites * THYROID AB PANEL (TPO AB+THYROGLOB AB)(Performed 03/29/2019) Performed for Overactive bladder, Major depressive disorder, recurrent, moderate (HCC), Phlebitis and thrombophlebitis of other sites * ERYTHROCYTE SEDIMENTATION RATE(Performed 03/29/2019) Performed for Overactive bladder, Major depressive disorder, recurrent, moderate (HCC), Phlebitis and thrombophlebitis of other sites * T3 FREE(Performed 03/29/2019) Performed for Overactive bladder, Major depressive disorder, recurrent, moderate (HCC), Phlebitis and thrombophlebitis of other sites * BASIC METABOLIC PANEL (CALCIUM TOTAL)(Performed 03/29/2019) Performed for Restless legs syndrome (RLS), Excessive daytime sleepiness, Chronic fatigue * CBC W/O DIFFERENTIAL(Performed 03/29/2019) Performed for Restless legs syndrome (RLS), Excessive daytime sleepiness, Chronic fatigue * TRANSFERRIN(Performed 03/29/2019) Performed for Restless legs syndrome (RLS), Excessive daytime sleepiness, Chronic fatigue * METHYLMALONIC ACID BLOOD(Performed 03/29/2019) Performed for Restless legs syndrome (RLS), Excessive daytime sleepiness, Chronic fatigue * FOLATE(Performed 03/29/2019) Performed for Restless legs syndrome (RLS), Excessive daytime sleepiness, Chronic fatigue * FERRITIN(Performed 03/29/2019) Performed for Restless legs syndrome (RLS), Excessive daytime sleepiness, Chronic fatigue * CULTURE URINE(Performed 03/29/2019) Performed for Overactive bladder, Major depressive disorder, recurrent, moderate (HCC), Phlebitis and thrombophlebitis of other sites * MD DRAIN/INJECT LARGE JOINT/BURSA(Performed 10/23/2018) Performed for Strain of right rotator cuff capsule, initial encounter * XR SHOULDER RIGHT 2VW OR MORE(Performed 10/22/2018) Performed for Right shoulder pain, unspecified chronicity * FL UGI W AIR CONTRAST W KUB(Performed 09/11/2018) Performed for Gastro-esophageal reflux disease without esophagitis, Esophageal dysphagia, Opacity of lung on imaging study * PFT(Performed 07/27/2018) * CARDIAC EKG ORDER(Performed 07/27/2018) * ECHO COMPLETE(Performed 07/26/2018) Performed for Dyspnea on exertion, Lower extremity edema * CT CHEST WO CONT AND HIRES(Performed 06/06/2018) Performed for ILD (interstitial lung disease) (HCC) * COMPLETE PFT W/WO BRONCHODILATOR(Performed 04/11/2018) Performed for Hypersensitivity pneumonitis (HCC) * PNEUMONITIS HYPERSENSITIVE PANEL(Performed 04/10/2018) Performed for Hypersensitivity pneumonitis (HCC) * LAB MISC TEST(Performed 04/10/2018) Performed for Hypersensitivity pneumonitis (HCC) * CT CHEST WO CONT AND HIRES(Performed 04/10/2018) Performed for Hypersensitivity pneumonitis (HCC) * PROC EKG IN CLINIC(Performed 03/25/2018) Performed for Dyspnea on exertion * DEXA BONE DENSITY AXIAL SKELETON(Performed 03/23/2018) Performed for Post-menopausal * MAMMO BILAT SCREENING(Performed 03/23/2018) Performed for Screening for breast cancer * CARDIAC EKG ORDER(Performed 03/16/2018) * XR CHEST 2VW(Performed 03/15/2018) Performed for Dyspnea on exertion * FERRITIN(Performed 02/07/2018) * IRON BLOOD(Performed 02/07/2018) * TRANSFERRIN(Performed 02/07/2018) * HEMOGLOBIN A1C(Performed 10/05/2017) * VITALITY SCREEN (BEAKER)(Performed 10/05/2017) * LIPID PROFILE(Performed 10/05/2017) * GLUCOSE VITALITY(Performed 10/05/2017) * HEMOGLOBIN A1C(Performed 09/18/2017) * VITAMIN B12(Performed 09/18/2017) * FERRITIN(Performed 07/07/2017) * VITAMIN D 25-HYDROXY(Performed 07/07/2017) * TRANSFERRIN(Performed 07/07/2017) * IRON BLOOD(Performed 07/07/2017) * TSH(Performed 04/10/2017) * MAMMO BILAT SCREENING(Performed 11/02/2016) * VITALITY SCREEN (BEAKER)(Performed 10/11/2016) * HEMOGLOBIN A1C(Performed 10/11/2016) * LIPID PROFILE(Performed 10/11/2016) * GLUCOSE VITALITY(Performed 10/11/2016) * URINALYSIS - POINT OF CARE (AMB) [facility](Performed 06/27/2016) * CHLAMYDIA TRACHOMATIS ISABELLE(Performed 06/27/2016) * NEISSERIA GONORRHOEAE ISABELLE(Performed 06/27/2016) * CULTURE URINE(Performed 06/27/2016) * LAB HISTORICAL RESULTS-ONBASE(Performed 01/19/2016) * XR CHEST 2VW(Performed 01/15/2016) * COMPREHENSIVE METABOLIC PANEL(Performed 01/15/2016) * PTT [facility](Performed 01/15/2016) * PT-INR [facility](Performed 01/15/2016) * CBC W/O DIFFERENTIAL(Performed 01/15/2016) * TSH(Performed 01/15/2016) * EKG 12-LEAD(Performed 01/15/2016) * HEMOGLOBIN A1C(Performed 10/08/2015) * VITALITY SCREEN (BEAKER)(Performed 10/08/2015) * LIPID PROFILE(Performed 10/08/2015) * GLUCOSE VITALITY(Performed 10/08/2015) * MAMMO BILAT SCREENING(Performed 09/25/2015) * TSH(Performed 07/17/2015) * BASIC METABOLIC PANEL (CALCIUM TOTAL)(Performed 07/17/2015) * CBC W AUTO DIFFERENTIAL(Performed 07/17/2015) * CBC W AUTO DIFFERENTIAL(Performed 07/17/2015) * HEMOGLOBIN A1C(Performed 10/09/2014) * VITALITY SCREEN (BEAKER)(Performed 10/09/2014) * LIPID PROFILE(Performed 10/09/2014) * GLUCOSE VITALITY(Performed 10/09/2014) * XR WRIST RIGHT 3VW OR MORE(Performed 08/20/2014) * T4 FREE(Performed 07/30/2014) * TSH(Performed 07/30/2014) * VITAMIN D 25-HYDROXY(Performed 07/30/2014) * T3 TOTAL(Performed 07/30/2014) * CBC W AUTO DIFFERENTIAL(Performed 07/30/2014) * CBC W AUTO DIFFERENTIAL(Performed 07/30/2014) * HELICOBACTER PYLORI ANTIBODY IGM(Performed 05/29/2014) * HELICOBACTER PYLORI ANTIBODY IGG(Performed 05/29/2014) * XR CHEST 2VW(Performed 05/29/2014) * EKG 12-LEAD(Performed 05/29/2014) * TSH(Performed 05/23/2014) * MAMMO BILAT SCREENING(Performed 03/13/2014) * XR ANKLE RIGHT 3VW OR MORE(Performed 12/17/2013) * BIOMETRICS HEALTH FAIR HISTORICAL(Performed 10/08/2013) * GLUCOSE VITALITY(Performed 10/08/2013) * MAMMO BILAT SCREENING(Performed 02/12/2013) * FSH(Performed 01/22/2013) * CBC W/O DIFFERENTIAL(Performed 10/24/2012) * TSH(Performed 10/24/2012) * TRANSFERRIN(Performed 10/24/2012) * IRON BLOOD(Performed 10/24/2012) * VITAMIN B12(Performed 10/24/2012) * COMPREHENSIVE METABOLIC PANEL(Performed 10/24/2012) * FERRITIN(Performed 10/24/2012) * GLUCOSE(Performed 10/03/2012) * CHOLESTEROL BLOOD(Performed 10/03/2012) * CULTURE URINE(Performed 08/01/2012) * URINALYSIS - POINT OF CARE (AMB) [facility](Performed 08/01/2012) * XR FOOT RIGHT 2VW(Performed 06/14/2012) * TSH(Performed 01/25/2012) Results * CBC W/ DIFFERENTIAL (06/05/2024 12:32 PM T) Only the most recent of9 resultswithin the time period is included. WBC 4.2 4.0 - 10.7 x10E9/L 06/05/2024 1:42 PM [facility] RBC Count 4.45 3.90 - 5.20 x10E12/L 06/05/2024 1:42 PM [facility] Hemoglobin 13.5 11.9 - 15.8 g/dL 06/05/2024 1:42 PM [facility] Hematocrit 41.0 34.8 - 46.1 % 06/05/2024 1:42 PM [facility] MCV 92.1 80.0 - 98.0 fL 06/05/2024 1:42 PM [facility] MCH 30.3 26.7 - 33.6 pg 06/05/2024 1:42 PM [facility] MCHC 32.9 31.7 - 36.3 g/dL 06/05/2024 1:42 PM [facility] RDW-CV 13.2 11.3 - 14.8 % 06/05/2024 1:42 PM [facility] Platelet Count 192 150 - 420 x10E9/L 06/05/2024 1:42 PM [facility] MPV 10.8 7.8 - 11.4 fL 06/05/2024 1:42 PM [facility] Neutrophil % 62.6 41.0 - 74.0 % 06/05/2024 1:42 PM T [facility] Lymphocyte % 28.4 17.0 - 47.0 % 06/05/2024 1:42 PM T [facility] Monocyte % 6.9 3.0 - 11.0 % 06/05/2024 1:42 PM T [facility] Eosinophil % 1.2 0.0 - 7.0 % 06/05/2024 1:42 PM T [facility] Basophil % 0.7 0.0 - 1.6 % 06/05/2024 1:42 PM [facility] Immature Granulocytes % 0.2 0.0 - 1.0 % 06/05/2024 1:42 PM [facility] Neutrophil Absolute 2.62 1.60 - 7.50 x10E9/L 06/05/2024 1:42 PM [facility] Lymphocyte Absolute 1.19 1.00 - 4.40 x10E9/L 06/05/2024 1:42 PM [facility] Monocyte Absolute 0.29 0.15 - 1.00 x10E9/L 06/05/2024 1:42 PM [facility] Eosinophil Absolute 0.05 0.00 - 0.60 x10E9/L 06/05/2024 1:42 PM [facility] Basophil Absolute 0.03 0.00 - 0.13 x10E9/L 06/05/2024 1:42 PM [facility] Blood BLOOD SPECIMEN / Unknown Lab Venipuncture / Unknown 06/05/2024 12:32 PM CDT 06/05/2024 1:23 PM CDT Mateo Dash MD LAB - HEMATOLOGY ORD ERABLES [facility] [address] [place] [id number], [facility] [phone] * (ABNORMAL) COMPREHENSIVE METABOLIC PANEL (06/05/2024 12:32 PM CDT) Only the most recent of7 resultswithin the time period is included. BUN 16 7 - 26 mg/dL 06/05/2024 1:54 PM [facility] Creatinine 0.89 0.56 - 0.96 mg/dL 06/05/2024 1:54 PM [facility] Sodium 142 136 - 145 mmol/L 06/05/2024 1:54 PM [facility] Potassium 4.4 3.5 - 4.5 mmol/L 06/05/2024 1:54 PM [facility] Chloride 106 98 - 107 mmol/L 06/05/2024 1:54 PM [facility] CO2 28 22 - 29 mmol/L 06/05/2024 1:54 PM [facility] Glucose 85 70 - 115 mg/dL 06/05/2024 1:54 PM [facility] Calcium 9.6 8.4 - 10.2 mg/dL 06/05/2024 1:54 PM [facility] Protein Total 7.7 6.0 - 8.3 g/dL 06/05/2024 1:54 PM [facility] Albumin 4.0 3.4 - 5.0 g/dL 06/05/2024 1:54 PM [facility] Bilirubin Total 0.6 0.2 - 1.2 mg/dL 06/05/2024 1:54 PM [facility] Alkaline Phosphatase 96 40 - 150 U/L 06/05/2024 1:54 PM [facility] ALT 15 5 - 55 U/L 06/05/2024 1:54 PM [facility] AST 24 5 - 34 U/L 06/05/2024 1:54 PM [facility] Anion Gap 8 6 - 16 06/05/2024 1:54 PM [facility] BUN/Creatinine Ratio 18 7 - 23 06/05/2024 1:54 PM [facility] Osmolality Calculated 294 275 - 295 mOsm/kg 06/05/2024 1:54 PM [facility] Albumin/Globulin Ratio 1.1 1.1 - 2.3 06/05/2024 1:54 PM [facility] eGFR by CKD-EPI 72(L) >=90 mL/min/1.7 3 m2 06/05/2024 1:54 PM CDT [facility] Blood BLOOD SPECIMEN / Unknown Lab Venipuncture / Unknown 06/05/2024 12:32 PM CDT 06/05/2024 1:22 PM CDT Mateo Dash MD LAB - CHEMISTRY ALBERTO HURTADO Performing Organization Address City/[facility]/ZIP Co de Phone Number [facility] [address] [place] [address], [facility] [phone] * FOLATE (08/29/2023 3:27 PM CDT) Only the most recent of3 resultswithin the time period is included. Folate 14.5 ng/mL [facility] Comment: Reference Range Low: <3.4 Borderline: 3.4-5.4 Normal: >5.4 REPORT COMMENT: FASTING:NO Test Performed at: [facility] [address] [place] [address] DMITRY MENON,PHD Blood BLOOD SPECIMEN / Unknown 08/29/2023 3:27 PM CDT 08/29/2023 3:27 PM CDT Beto Almaraz MD LAB - CHEMISTRY ALBERTO HURTADO Performing Organization Address City/[facility]/ZIP Co de Phone Number [facility] [address] [place] [address] * VITAMIN B1 PLASMA (08/29/2023 3:25 PM CDT) Pathologist [facility] Vitamin B1 14 8 - 30 nmol/L [facility] Comment: (Note) Vitamin supplementation within 24 hours prior to blood draw may affect the accuracy of the results. This test was developed and its analytical performance characteristics have been determined by [employer]. It has not been cleared or approved by FDA. This assay has been validated pursuant to the CLIA regulations and is used for clinical purposes. [facility] [address] [address],[address] [facility] [address] Patito Diamond MD Test Performed at: [facility] [address] [address] [address] [place] [address] PATITO DIAMOND MD 08/29/2023 3:25 PM CDT 08/29/2023 3:26 PM CDT Beto Almaraz MD LAB - CHEMISTRY ALBERTO HURTADO Performing Organization Address [facility] Co de Phone Number [facility] [address] [place] [address] * VITAMIN K1 (08/29/2023 3:25 PM CDT) Only the most recent of3 resultswithin the time period is included. Vitamin K 171 130 - 1500 pg/mL [facility] Comment: This test was developed and its analytical performance characteristics have been determined by [employer]. It has not been cleared or approved by the FDA. This assay has been validated pursuant to the CLIA regulations and is used for clinical purposes. Test Performed at: [facility] [address] [id number] ALFONSO HOPE MD Blood BLOOD SPECIMEN / Unknown 08/29/2023 3:25 PM CDT 08/29/2023 3:26 PM CDT Beto Almaraz MD LAB - CHEMISTRY ALBERTO HURTADO Performing Organization Address [facility] de Phone Number [facility] [id number] [place] [address] * ZINC BLOOD (08/29/2023 3:25 PM CDT) Only the most recent of3 resultswithin the time period is included. Zinc 74 60 - 130 mcg/dL [facility] Comment: This test was developed and its analytical performance characteristics have been determined by [employer]. It has not been cleared or approved by the FDA. This assay has been validated pursuant to the CLIA regulations and is used for clinical purposes. REPORT COMMENT: FASTING:NO Test Performed at: [facility] [address] [address] MARIN HAMILTON Blood BLOOD SPECIMEN / Unknown 08/29/2023 3:25 PM CDT 08/29/2023 3:26 PM CDT Beto Almaraz MD LAB - CHEMISTRY ALBERTO HURTADO Performing Organization Address City/[facility] [place] [address] * VITAMIN A (08/29/2023 3:25 PM CDT) Only the most recent of3 resultswithin the time period is included. [facility] Vitamin A 60 38 - 98 mcg/dL [facility] Comment: Clin Chem Vol. 34.No.8. [id number]. 1998 Vitamin supplementation within 24 hours prior to blood draw may affect the accuracy of results. This test was developed and its analytical performance characteristics have been determined by [employer]. It has not been cleared or approved by the FDA. This assay has been validated pursuant to the CLIA regulations and is used for clinical purposes. Test Performed at: [facility] [address] [place] [id number] ALFONSO HOPE MD Blood BLOOD SPECIMEN / Unknown 08/29/2023 3:25 PM CDT 08/29/2023 3:26 PM CDT Beto Almaraz MD LAB - CHEMISTRY ALBERTO HURTADO Performing Organization Address [facility] de Phone Number [facility] [address] [place] [address] * VITAMIN E (08/29/2023 3:25 PM CDT) Only the most recent of3 resultswithin the time period is included. [facility] Alpha-Tocopherol 15.4 mg/L [facility] Comment: Reference Range 5.7-19.9 mg/L Levels of alpha-tocopherol <5 mg/L are consistent with Vitamin E deficiency in adults. Vitamin supplementation within 24 hours prior to blood draw may affect the accuracy of results. See Note 1 Beta-Gamma Tocopherol <1.0 <4.4 mg/L [facility] Comment: See Note 1 Test Performed at: [facility] [address] [place] [address] ALFONSO HOPE MD Blood BLOOD SPECIMEN / Unknown 08/29/2023 3:25 PM CDT 08/29/2023 3:26 PM CDT Beto Almaraz MD LAB - CHEMISTRY ALBERTO HURTADO Performing Organization Address [facility]/ZIP Co de Phone Number [facility] [address] [place] [address] * (ABNORMAL) PTH INTACT (08/29/2023 3:25 PM CDT) Only the most recent of3 resultswithin the time period is included. PTH Intact 98(H) 16 - 77 pg/mL [facility] Comment: Interpretive Guide Intact PTH Calcium ------- Normal Parathyroid Normal Normal Hypoparathyroidism Low or Low Normal Low Hyperparathyroidism Primary Normal or High High Secondary High Normal or Low Tertiary High High Non-Parathyroid Hypercalcemia Low or Low Normal High Test Performed at: [facility] [address] [place] [address] DMITRY MENON,PHD Blood BLOOD SPECIMEN / Unknown 08/29/2023 3:25 PM CDT 08/29/2023 3:26 PM CDT Beto Almaraz MD LAB - CHEMISTRY ALBERTO HURTADO Performing Organization Address [facility] de Phone Number [facility] [address] [place] [address] * COPPER BLOOD (08/29/2023 3:25 PM CDT) Only the most recent of3 resultswithin the time period is included. Pathologist [facility] Copper 134 70 - 175 mcg/dL [facility] Comment: This test was developed and its analytical performance characteristics have been determined by [employer]. It has not been cleared or approved by the FDA. This assay has been validated pursuant to the CLIA regulations and is used for clinical purposes. Test Performed at: [facility] [address] [address] MARIN HAMILTON Blood BLOOD SPECIMEN / Unknown 08/29/2023 3:25 PM CDT 08/29/2023 3:26 PM CDT Beto Almaraz MD LAB - CHEMISTRY ALBERTO HURTADO Performing Organization Address [facility] Co de Phone Number [facility] [address] [place] [address] * (ABNORMAL) VITAMIN D 25-HYDROXY (08/29/2023 3:25 PM CDT) Only the most recent of5 resultswithin the time period is included. Vitamin D, 25 Hydroxy 22(L) 30 - 100 ng/mL [facility] Comment: Vitamin D Status 25-OH Vitamin D: Deficiency: <20 ng/mL Insufficiency: 20 - 29 ng/mL Optimal: > or = 30 ng/mL For 25-OH Vitamin D testing on patients on D2-supplementation and patients for whom quantitation of D2 and D3 fractions is required, the QuestAssureD(TM) 25-OH VIT D, (D2,D3), LC/MS/MS is recommended: order code 53107 (patients >2yrs). See Note 2 Note 1 This test was developed and its analytical performance characteristics have been determined by [employer]. It has not been cleared or approved by the FDA. This assay has been validated pursuant to the CLIA regulations and is used for clinical purposes. Note 2 For additional information, please refer to http://education.[employer]/faq/VHS248 (This link is being provided for informational/ educational purposes only.) Test Performed at: [place] [address] DMITRY MENON,PHD Blood BLOOD SPECIMEN / Unknown 08/29/2023 3:25 PM CDT 08/29/2023 3:26 PM CDT Beto Almaraz MD LAB - CHEMISTRY ALBERTO HURTADO [facility] Organization Address City/State/ZIP Co de Phone Number [facility] [address] [place] [address] * PREALBUMIN (08/29/2023 3:25 PM CDT) Prealbumin 22 17 - 34 mg/dL [facility] Comment: Test Performed at: [facility] [id number] [place] [address] DMITRY MENON,PHD Blood BLOOD SPECIMEN / Unknown 08/29/2023 3:25 PM CDT 08/29/2023 3:26 PM CDT Beto Almaraz MD LAB - CHEMISTRY ALBERTO SABAJOSSELIN Performing Organization Address [facility] de Phone Number [facility] [phone] [place] [address] * IRON + TIBC PANEL (08/29/2023 3:25 PM CDT) Only the most recent of3 resultswithin the time period is included. Iron 125 45 - 160 mcg/dL [facility] TIBC 372 250 - 450 mcg/dL (calc) [facility] % Saturation 34 16 - 45 % (calc) [facility] Comment: Test Performed at: [facility] [address] DMITRY MENON,PHD Blood BLOOD SPECIMEN / Unknown 08/29/2023 3:25 PM CDT 08/29/2023 3:26 PM CDT Beto Almaraz MD LAB - CHEMISTRY ALBERTO HURTADO Performing Organization Address [facility] de Phone Number [facility] [phone] [place] [address] * VITAMIN B12 (08/29/2023 3:25 PM CDT) Only the most recent of6 resultswithin the time period is included. Vitamin B12 798 200 - 1100 pg/mL [facility] Comment: Test Performed at: [facility], [facility] [address] DMITRY MENON,PHD Blood BLOOD SPECIMEN / Unknown 08/29/2023 3:25 PM CDT 08/29/2023 3:26 PM CDT Beto Almaraz MD LAB - CHEMISTRY ALBERTO HURTADO Performing Organization Address [facility] de Phone Number [facility] [id number] [place] [address] * FERRITIN (08/29/2023 3:25 PM CDT) Only the most recent of7 resultswithin the time period is included. Ferritin 43 16 - 288 ng/mL [facility] Comment: Test Performed at: [facility], [facility] [address] DMITRY MENON,PHD Blood BLOOD SPECIMEN / Unknown 08/29/2023 3:25 PM CDT 08/29/2023 3:26 PM CDT Beto Almaraz MD LAB - CHEMISTRY ALBERTO HURTADO Performing Organization Address [facility] Co de Phone Number [facility] [address] [place] [address] * VITAMIN B1 (09/13/2022 2:02 PM CDT) Only the most recent of3 resultswithin the time period is included. [facility] Vitamin B1 Whole Blood 95 78 - 185 nmol/L [facility] Comment: Vitamin supplementation within 24 hours prior to blood draw may affect the accuracy of results. This test was developed and its analytical performance characteristics have been determined by [employer]. It has not been cleared or approved by the FDA. This assay has been validated pursuant to the CLIA regulations and is used for clinical purposes. Test Performed at: [facility] [address] [address] ALFONSO HOPE MD 09/13/2022 2:02 PM CDT 09/13/2022 2:03 PM CDT Jaycee Alberto APRN-MARKETING COORDINATOR LAB - CHEMIS TRY ORDERABLES Performing Organization Address [facility] Co de Phone Number [facility] [phone] [place] [address] * CBC W/O DIFFERENTIAL (09/13/2022 2:02 PM CDT) Only the most recent of5 resultswithin the time period is included. Pathologist [facility] White Blood Cell Count 4.4 3.8 - 10.8 Thousand/u L [facility] RBC 4.54 3.80 - 5.10 Million/uL [facility] Hemoglobin 13.2 11.7 - 15.5 g/dL [facility] Hematocrit 41.0 35.0 - 45.0 % [facility] MCV 90.3 80.0 - 100.0 fL [facility] MCH 29.1 27.0 - 33.0 pg [facility] MCHC 32.2 32.0 - 36.0 g/dL [facility] RDW 12.2 11.0 - 15.0 % [facility] Platelet Count 231 140 - 400 Thousand/u L [facility] MPV 11.5 7.5 - 12.5 fL [facility] Comment: Test Performed at: [facility] [address] [place] [address] WARREN MORA DO,MPH 09/13/2022 2:02 PM CDT 09/13/2022 2:03 PM CDT Jaycee PEREZ LAB - HEMATO LOGY ORDERABLES Performing Organization Address [facility] de Phone Number [facility] [address] [place] [address] * MAGNESIUM BLOOD (09/13/2022 2:02 PM CDT) Only the most recent of2 resultswithin the time period is included. [facility] Magnesium 2.1 1.5 - 2.5 mg/dL [facility] Comment: Test Performed at: [facility] [address] [place] [address] WARREN MORA DO,MPH 09/13/2022 2:02 PM CDT 09/13/2022 2:03 PM CDT Jaycee PEREZ LAB - CHEMIS TRY ORDERABLES Performing Organization Address [facility] de Phone Number [facility] [address] [place] [address] * AUDIOLOGY/TYMPANOMETRY ORDER (08/17/2022 1:22 PM CDT) Narrative Magdalene Victoria AuD - 08/17/2022 1:44 PM CDT History: Ann Marie Rae arrived for a hearing evaluation. Patient reports issues with dizziness. She does feel some fullness in the right ear. She denies hearing loss, tinnitus, and otalgia. There is a history of noise exposure. There is not a family history of hearing loss. There is not a history of surgery on either ear(s). Results: Puretone air/bone conduction testing revealed a normal sloping to mild high frequency SN hearing loss in the right ear and a normal sloping to moderate high frequency SN hearing loss in the left ear. Speech understanding was excellent in the right ear and excellent in the left ear. Immittance measures revealed a Type A tympanogram in the right ear, indicating normal middle ear function. Results for the left ear revealed a Type A tympanogram, indicating normal middle ear function in that ear. These results were discussed in detail with the patient and all pertinent questions were answered. Recommendations: 1) ENT consult. 2) Hearing evaluation annually or if a change in hearing is suspected. Pricilla Fontana. [facility] Clinical Fern G[facility] [address] [facility]. ([facility]) [place] [address] Magdalene Pleitez AUDIOLOGY SERVICES O RDERABLES * FL UGI SERIES WO KUB (06/29/2021 9:48 AM CDT) Only the most recent of2 resultswithin the time period is included. Anatomical Region Laterality Modality Abdomen Radiographic Terry ging 06/29/2021 2:03 PM CDT Impressions 06/29/2021 2:04 PM CDT No evidence of leak or obstruction. *Reading Radiologist: Alfonso Ferguson on 06/29/2021 at 2:04 PM Narrative 06/29/2021 2:04 PM CDT LIMITED UPPER GI AFTER GASTRIC BYPASS INDICATION: Morbid obesity, gastric surgery, gastric leak. FINDINGS: Fluoroscopy of the gastric remnant was performed following ingestion of oral contrast media. There is no evidence of leak. There is prompt emptying into the small bowel. Total Fluoro Time = 45 seconds, spot fluoroscopic images were not obtained because cine fluoroscopy was utilized and the images were saved in video format Procedure Note Alfonso Ferguson MD - 06/29/2021 LIMITED UPPER GI AFTER GASTRIC BYPASS INDICATION: Morbid obesity, gastric surgery, gastric leak. FINDINGS: Fluoroscopy of the gastric remnant was performed following ingestion of oral contrast media. There is no evidence of leak. There is prompt emptying into the small bowel. Total Fluoro Time = 45 seconds, spot fluoroscopic images were not obtained because cine fluoroscopy was utilized and the images were saved in video format IMPRESSION No evidence of leak or obstruction. *Reading Radiologist: Alfonso Ferguson on 06/29/2021 at 2:04 PM Beto Almaraz MD FLUOROSCOPY ORDERABL ES * (ABNORMAL) GLUCOSE - POINT OF CARE (06/29/2021 6:45 AM CDT) Only the most recent of3 resultswithin the time period is included. Glucose WB/POC 113(H) 70 - 106 mg/dL 06/29/2021 6:52 AM CDT [facility] Specimen Type Arterial 06/29/2021 6:52 AM CDT [facility] Blood BLOOD SPECIMEN / Unknown 06/29/2021 6:45 AM CDT 06/29/2021 6:51 AM CDT Beto Almaraz MD LAB - POINT OF CARE ORDERABLES [facility] [address] [place] [address] * (ABNORMAL) BASIC METABOLIC PANEL (CALCIUM TOTAL) (06/29/2021 3:16 AM CDT) Only the most recent of3 resultswithin the time period is included. Glucose 121(H) 70 - 105 mg/dL 06/29/2021 3:44 AM CDT [facility] Sodium 138 136 - 145 mmol/L 06/29/2021 3:44 AM CDT [facility] Potassium 4.5 3.5 - 5.1 mmol/L 06/29/2021 3:44 AM CDT [facility] Chloride 107 98 - 107 mmol/L 06/29/2021 3:44 AM CDT [facility] CO2 18(L) 23 - 31 mmol/L 06/29/2021 3:44 AM CDT [facility] Calcium 8.6 8.4 - 10.4 mg/dL 06/29/2021 3:44 AM CDT [facility] Anion Gap 13 8 - 18 mmol/L 06/29/2021 3:44 AM CDT [facility] BUN 13 9.8 - 20.1 mg/dL 06/29/2021 3:44 AM CDT [facility] Creatinine 1.05 0.57 - 1.11 mg/dL 06/29/2021 3:44 AM CDT [facility] eGFR by MDRD 53(L) >60 mL/min/1.7 3m2 06/29/2021 3:44 AM CDT [facility] eGFR by MDRD >60 >60 mL/min/1.7 3m2 06/29/2021 3:44 AM CDT [facility] Blood BLOOD SPECIMEN / Unknown Venipuncture / Unknown 06/29/2021 3:16 AM CDT 06/29/2021 3:20 AM CDT Beto Almaraz MD LAB - CHEMISTRY ALBERTO HURTADO [facility] [address] [place] [address] * ETT LINE PERFORMABLE (06/28/2021 7:52 AM CDT) Narrative Dahiana Abraham APRN-CRNA - 06/28/2021 7:52 AM CDT Dahiana Abraham APRN-CRNA 06/28/2021 7:53 AM Endotracheal Tube Placement: Patient Location: OR. Intubation Event Date/Time: 06/28/2021 7:36 AM Procedure: intubation ([id number]). Procedure Section: Sedation: under general anesthesia. Indications for Airway Management: anesthesia Induction: standard IV Patient Position: sniffing Mask Ventilation: easy. Blade Type: Cathi Blade Size: 3 Laryngoscopy View: grade 1 (full cords) Tube: endotracheal tube Placement: oral Tube type: cuff - inflated Tube Size (MM): 7 Depth of Insertion (CM): 20 Measured From: teeth Cuff volume (mL): 5 Cuff Inflated With: air Number of Attempts: 1. Placement Verified By: direct visualization, bilateral breath sounds and CO2 monitor Tube secured with: adhesive tape. Dentition unchanged? Yes Difficult Airway? No. Procedure Start Time: 06/28/2021 7:36 AM. Procedure End Time: 06/28/2021 7:36 AM. Procedure Total Time: 0 minutes. Staff Section Anesthesia Provider: Dahiana Abraham APRN-CRNA, Performed the procedure Larry Shaver MD GENERAL ANESTHESIA O RDERABLES * (ABNORMAL) POTASSIUM BLOOD (06/28/2021 6:54 AM CDT) Potassium 3.4(L) 3.5 - 5.1 mmol/L 06/28/2021 7:26 AM CDT [facility] Blood BLOOD SPECIMEN / Unknown Venipuncture / Unknown 06/28/2021 6:54 AM CDT 06/28/2021 7:11 AM CDT Arlene Bradley DO LAB - CHEMISTRY ALBERTO HURTADO Performing Organization Address City/[facility] Co de Phone Number [facility] [address] [place] [address] * EKG 12-LEAD (06/15/2021 10:03 AM CDT) Only the most recent of3 resultswithin the time period is included. Ventricular Rate 73 BPM [facility] Atrial Rate 73 BPM [facility] P-R Interval 198 ms [facility] QRS Duration ms 90 ms [facility] Q-T Interval ms 422 ms [facility] QTC Calculation (Bezet) 464 ms [facility] Calculated P [place] 59 degrees [facility] Calculated R [place] 0 degrees [facility] Calculated T [place] 11 degrees [facility] Interpretation EKG Normal sinus rhythm Minimal voltage criteria for LVH, may be normal variant Borderline ECG No previous ECGs available Confirmed by MERLYN GARCIA MD ([id number]) on 06/15/2021 5:30:17 PM [facility] 06/15/2021 10:0 3 AM CDT 06/15/2021 5:30 PM CDT Beto Almaraz MD ECG ORDERABLES Performing Organization Address [facility] Co de Phone Number [facility] * COMPLETE PFT W/WO BRONCHODILATOR (06/01/2021 12:21 PM CDT) Impressions Kam Sal MD - 06/01/2021 12:21 PM CDT [facility] DEPARTMENT OF PULMONARY, CRITICAL CARE, AND SLEEP MEDICINE PULMONARY FUNCTION TEST Please see technologist's comments mentioned in the report. INTERPRETATION: SPIROMETRY: FVC: decreased FEV1: moderately decreased(60-69% pred). FEV1/FVC ratio is normal. BRONCHODILATOR RESPONSE: There is no significant response to bronchodilator therapy however does not preclude from bronchodilator therapy if clinically indicated otherwise FLOW-VOLUME LOOPS: increased slope of the expiratory limbs LUNG VOLUMES: Lung volumes by body plethysmography show decreased TLC and normal residual volume DLCO: Unadjusted for Hb and COHb is normal DLCO: Corrected for Hb and COHb is: not performed AIRWAY RESISTANCE: The airway resistance is normal and the specific conductance is normal ARTERIAL BLOOD GAS ANALYSIS: not performed IMPRESSION: 1. Moderate Restrictive Ventilatory Limitation 2. Normal uncorrected DLCO 3. No significant bronchodilator response, however this does not preclude the use of bronchodilators 4. Compared with previous study on 04/10/2018, there is significant reduction in post bronchodilator FVC by 380 cc, pre-bronchodilator FEV1 by 300 cc. Cindy Huerta MD Pulmonary & Critical Care Fellow Division of Pulmonary, Critical Care and Sleep Medicine [facility] Pager: [phone] I have personally reviewed and agree with the fellow's interpretation. Kam Sal MD Narrative Kam Sal MD - 06/01/2021 12:21 PM CDT Cindy Huerta MD 06/01/2021 7:18 PM Kurt Akbar MD RESPIRATORY THERAPY ORDERABLES * ECHO COMPLETE (06/01/2021 10:09 AM CDT) Only the most recent of2 resultswithin the time period is included. Anatomical Region Laterality Modality Chest Echo 06/01/2021 9:46 AM CDT Narrative Procedure Note Miguel Shah MD - 06/01/2021 Kurt Akbar MD ECHOCARDIOGRAPHY RAD IANT * URINALYSIS AUTO - POINT OF CARE (AMB) [facility] (01/26/2021) Glucose UA neg Bilirubin UA POCT neg Ketones UA POCT neg Specific [place] UA 1.015 Blood Urine POCT neg pH UA 6.0 Protein UA neg Urobilinogen UA neg Nitrite UA neg WBC UA neg Urine URINE / Unknown 01/26/2021 Patito Villafuerte MD LAB - POINT OF CAR E ORDERABLES * FL UGI W AIR CONTRAST (11/06/2020 8:21 AM COMPUTER LAB ASSISTANT) Anatomical Region Laterality Modality Abdomen Radiographic Terry ging 11/06/2020 8:49 AM COMPUTER LAB ASSISTANT Impressions 11/06/2020 8:51 AM COMPUTER LAB ASSISTANT Megaesophagus with discoordinated contractions. Delayed esophageal emptying when not upright due to the severity of the discoordinated contractions. Gastric structure in the expected location of the prior lap band. *Reading Radiologist: Kurt Rivera on 11/06/2020 at 8:51 AM Narrative 11/06/2020 8:51 AM COMPUTER LAB ASSISTANT Upper GI with air-contrast HISTORY: Morbid obesity due to excess calories. FINDINGS: Fluoroscopy time 117 seconds. Double contrast exam. There are multiple findings. The esophagus is distended. The esophagus has discoordinated presently esophageal-type contractions. Just distal to the gastric pouch there is a persistent area of constriction in the expected location of the prior gastric banding and. This area did not distend. Distal to that region of stricture the mid and distal stomach have a normal appearance with post cholecystectomy clips with the duodenal bulb distend readily. Procedure Note Kurt Rivera MD - 11/06/2020 Upper GI with air-contrast HISTORY: Morbid obesity due to excess calories. FINDINGS: Fluoroscopy time 117 seconds. Double contrast exam. There are multiple findings. The esophagus is distended. The esophagus has discoordinated presently esophageal-type contractions. Just distal to the gastric pouch there is a persistent area of constriction in the expected location of the prior gastric banding and. This area did not distend. Distal to that region of stricture the mid and distal stomach have a normal appearance with post cholecystectomy clips with the duodenal bulb distend readily. IMPRESSION Megaesophagus with discoordinated contractions. Delayed esophageal emptying when not upright due to the severity of the discoordinated contractions. Gastric structure in the expected location of the prior lap band. *Reading Radiologist: Kurt Rivera on 11/06/2020 at 8:51 AM Beto Almaraz MD FLUOROSCOPY ORDERABL ES * HELICOBACTER PYLORI UREASE (STL) (10/08/2020 8:01 AM COMPUTER LAB ASSISTANT) Helicobacter pylori Urease Initial Negative Negative 10/09/2020 3:28 PM COMPUTER LAB ASSISTANT [facility] Helicobacter pylori Urease Final Negative Negative 10/09/2020 3:28 PM COMPUTER LAB ASSISTANT [facility] Comment:This is an appended report. These results have been appended to a previously preliminary verified report. Microbiology GASTRIC ANTRAL BIOPSY SPECIMEN / Unknown 10/08/2020 8:01 AM COMPUTER LAB ASSISTANT 10/08/2020 12:48 PM COMPUTER LAB ASSISTANT Beto Almaraz MD LAB - MICROBIOLOGY O RDERABLES [facility] [address] [place] [id number] * EGD (10/08/2020 7:53 AM COMPUTER LAB ASSISTANT) Report Endoscopy POC _ Patient Name: Ann Marie Rae Procedure Date: 10/08/2020 7:53 AM Date of : 1960 Admit Type: Outpatient Age: 60 Gender: Female Attending MD: Beto Almaraz , _ Procedure: Upper GI endoscopy Indications: Preoperative assessment for bariatric surgery to treat morbid obesity Providers: Beto Almaraz (Doctor) Referring MD: Arcenio Mccann MD (Referring MD) Medicines: Monitored Anesthesia Care Complications: No immediate complications. _ Procedure: Pre-Anesthesia Assessment: - Prior to the procedure, a History and Physical was performed, and patient medications and allergies were reviewed. The patient's tolerance of previous anesthesia was also reviewed. The risks and benefits of the procedure and the sedation options and risks were discussed with the patient. All questions were answered, and informed consent was obtained. Prior Anticoagulants: The patient has taken no previous anticoagulant or antiplatelet agents. ASA Grade Assessment: III - A patient with severe systemic disease. After reviewing the risks and benefits, the patient was deemed in satisfactory condition to undergo the procedure. After obtaining informed consent, the endoscope was passed under direct vision. Throughout the procedure, the patient's blood pressure, pulse, and oxygen saturations were monitored continuously. The Endoscope was introduced through the mouth, and advanced to the second part of duodenum. The upper GI endoscopy was accomplished without difficulty. The patient tolerated the procedure well. Findings: Esophagogastric landmarks were identified: the Z-line was found at 39 cm and the site of hiatal narrowing was found at 40 cm from the incisors. A small hiatal hernia was present. Localized mild inflammation characterized by erythema was found in the prepyloric region of the stomach. Biopsies were taken with a cold forceps for Helicobacter pylori testing using CLOtest. Estimated blood loss: none. The first portion of the duodenum and second portion of the duodenum were normal. The cardia and gastric fundus were normal on retroflexion. _ Impression: - Esophagogastric landmarks identified. - Small hiatal hernia. - Gastritis. Biopsied. - Normal first portion of the duodenum and second portion of the duodenum. Recommendation: - Discharge patient to home. - Resume previous diet. - Continue present medications. - Await pathology results. Procedure Code(s): --- Professional --- 44110, Esophagogastroduod enoscopy, flexible, transoral; with biopsy, single or multiple --- Technical --- 24663, Esophagogastroduod enoscopy, flexible, transoral; with biopsy, single or multiple Diagnosis Code(s): --- Professional --- K44.9, Diaphragmatic hernia without obstruction or gangrene K29.70, Gastritis, unspecified, without bleeding Z01.818, Encounter for other preprocedural examination E66.01, Morbid (severe) obesity due to excess calories --- Technical --- K44.9, Diaphragmatic hernia without obstruction or gangrene K29.70, Gastritis, unspecified, without bleeding Z01.818, Encounter for other preprocedural examination E66.01, Morbid (severe) obesity due to excess calories CPT copyright 2017 [employer]. All rights reserved. The codes documented in this report are preliminary and upon medical biller coder review may be revised to meet current compliance requirements. Beto Almaraz Beto Almaraz, 10/08/2020 8:10:11 AM This report has been signed electronically. Number of Addenda: 0 Note Initiated On: 10/08/2020 7:53 AM [facility] 10/08/2020 7:53 AM COMPUTER LAB ASSISTANT Narrative Procedure Note Beto Almaraz MD - 10/08/2020 8:10 AM CST EGD completed. Normal cardia on retroflextion, small hiatal hernia.Biopsies pending. A full PDF copy of the report with photos is in the results and/or mediatab for your review. Please refer to this for full details of theprocedure. UGI pending Pt to have hiatal hernia repair added on to primary procedure. Needsfollow up after UGI Beto Almaraz MD Beto Almaraz MD GI PROCEDURE ORDERAB LES [facility] [place] [address] * ETT LINE PERFORMABLE (07/15/2020 7:56 AM CDT) Narrative Ema Aguilar APRN-CRNA - 07/15/2020 7:56 AM CDT Ema Aguilar APRN-CRNA 07/15/2020 8:08 AM Endotracheal Tube Placement: Patient Location: OR. Intubation Event Date/Time: 07/15/2020 7:42 AM Procedure: intubation (51757). Procedure Section: Sedation: IV sedation. Indications for Airway Management: airway protection Procedure pretreatments used? No Induction: rapid sequence Patient Position: sniffing Mask Ventilation: not attempted. Blade Type: Cathi Blade Size: 3 Laryngoscopy View: grade 1 (full cords) Intubation Adjuncts: cricoid pressure Nasal Airway Size: 7 Tube: endotracheal tube Placement: oral Tube type: cuff - inflated Tube Size (MM): 4 Depth of Insertion (CM): 21 Measured From: teeth Cuff volume (mL): 10 Cuff Inflated With: air Number of Attempts: 1. Placement Verified By: direct visualization, bilateral breath sounds, CO2 monitor and chest auscultation Tube secured with: adhesive tape. Dentition unchanged? Yes Difficult Airway? No. Procedure Start Time: 07/15/2020 7:42 AM. Staff Section Anesthesia Provider: Ema Aguilar APRN-CRNA, Performed the procedure Provider #1: Lilia Grant RN. Arlene Bradley DO GENERAL ANESTHESIA O RDERABLES * SARS-COV-2 (COVID-19) PRE-SURGICAL/PROCEDURE (07/13/2020 9:14 AM CDT) COVID-19 PCR Not detected Not detected, Invalid 07/13/2020 7:[address] [facility] Microbiology SPECIMEN FROM NASOPHARYNGEAL STRUCTURE / Unknown Collection / Unknown 07/13/2020 9:14 AM CDT 07/13/2020 9:[address] [facility] - 07/13/2020 7:39 PM CDT This Real Time RT-PCR assay was developed and its performance characteristics determined by [facility]. This test has been authorized by the Food and Drug administration (FDA)under an Emergency Use Authorization (EUA). This test has been validated in accordance with the FDA's guidance document Policy for Diagnostic Testing in Laboratories Certified to perform High Complexity Testing under CLIA prior to Emergency Use Authorization for Coronavirus Disease-2019 during the Public Health Emergency issued on January 25, 2020. FDA independent review of this validation is pending. This test is only authorized for the duration of time the declaration that circumstances exist justifying the authorization of emergency use of in vitro diagnostic tests for detection of SARS-CoV-2 virus and/or diagnosis of COVID-19 infection under section 564(b)(1) of the Act, 21 U.S.C 360bbb-3 (b)(1), unless the authorization is terminated or revoked sooner. Beto Almaraz MD LAB - MICROBIOLOGY O RDERABLES [facility] [address] [place] [address], [facility] [phone] * FL LAPBAND ADJUST VIA PORT (12/10/2019 1:21 PM COMPUTER LAB ASSISTANT) Anatomical Region Laterality Modality Radiographic Terry ging 12/10/2019 1:26 PM COMPUTER LAB ASSISTANT Narrative 12/10/2019 1:28 PM COMPUTER LAB ASSISTANT Fluoroscopy lap band adjustment 5 port No radiologist present during the procedure. Fluoroscopy time 0.9 minutes. Reading Radiologist: Kurt Rivera MD on 12/10/2019 at 1:28 PM Procedure Note Kurt Rivera MD - 12/10/2019 Fluoroscopy lap band adjustment 5 port No radiologist present during the procedure. Fluoroscopy time 0.9 minutes. Reading Radiologist: Kurt Rivera MD on 12/10/2019 at 1:28 PM Beto Almaraz MD FLUOROSCOPY ORDERABL ES * T3 FREE (12/02/2019 3:58 PM COMPUTER LAB ASSISTANT) Only the most recent of4 resultswithin the time period is included. T3 Free 2.9 1.7 - 3.7 pg/mL 12/02/2019 5:04 PM COMPUTER LAB ASSISTANT [facility] Blood BLOOD SPECIMEN / Unknown Lab Venipuncture / Unknown 12/02/2019 3:58 PM COMPUTER LAB ASSISTANT 12/02/2019 4:14 PM COMPUTER LAB ASSISTANT Ordering Provider Unlisted MD LAB - CHEM ISTRY ORDERABLES Performing Organization Address City/[facility]/ZIP Co de Phone Number [address] [phone] * TSH (12/02/2019 3:58 PM COMPUTER LAB ASSISTANT) Only the most recent of11 resultswithin the time period is included. [facility] TSH 2.584 0.350 - 4.940 uIU/mL 12/02/2019 5:03 PM [facility] Blood BLOOD SPECIMEN / Unknown Lab Venipuncture / Unknown 12/02/2019 3:58 PM COMPUTER LAB ASSISTANT 12/02/2019 4:14 PM COMPUTER LAB ASSISTANT Ordering Provider Unlisted LAB - CHEM ISTRY ORDERABLES Performing Organization Address [facility] Co de Phone Number [address] [phone] * T4 FREE (12/02/2019 3:58 PM COMPUTER LAB ASSISTANT) Only the most recent of4 resultswithin the time period is included. [facility] T4 Free 1.1 0.7 - 1.5 ng/dL 12/02/2019 5:04 PM [facility] Blood BLOOD SPECIMEN / Unknown Lab Venipuncture / Unknown 12/02/2019 3:58 PM COMPUTER LAB ASSISTANT 12/02/2019 4:14 PM COMPUTER LAB ASSISTANT Ordering Provider Unlisted MD LAB - CHEM ISTRY ORDERABLES Performing Organization Address [facility]/ZIP Co de Phone Number [address] [phone] * (ABNORMAL) LIPID PROFILE (12/02/2019 3:58 PM COMPUTER LAB ASSISTANT) Only the most recent of6 resultswithin the time period is included. [facility] Cholesterol Total 232(H) <200 mg/dL 12/02/2019 4:42 PM [facility] HDL 55 >40 mg/dL 12/02/2019 4:42 PM [facility] Comment: ATP III Classification of HDL Cholesterol: <40 mg/dL: Considered a major risk factor. >60 mg/dL: Considered a negative risk factor. LDL Calculated 151(H) <100 mg/dL 12/02/2019 4:42 PM [facility] Comment: ATP III Classification of LDL Cholesterol: <100 mg/dL: Optimal 100 - 129 mg/dL: Near Optimal/Above Optimal 130 - 159 mg/dL: Borderline High 160 - 189 mg/dL: High >190 mg/dL: Very High Triglycerides 128 <150 mg/dL 12/02/2019 4:42 PM [facility] Comment: ATP III Classification of Triglycerides: <150 mg/dL: Normal 150 - 199 mg/dL: Borderline High 200 - 400 mg/dL: High >500 mg/dL: Very High Blood BLOOD SPECIMEN / Unknown Lab Venipuncture / Unknown 12/02/2019 3:58 PM COMPUTER LAB ASSISTANT 12/02/2019 4:14 PM [facility] Ordering Provider Unlisted MD LAB - CHEM ISTRY ORDERABLES [address] [phone] * ALEJANDRA STAINING PATTERNS REFLEXED (10/28/2019 4:41 PM [facility]) Homogeneous Pattern 1:80 10/30/2019 5:07 PM COMPUTER LAB ASSISTANT [facility] ([facility]) Note Comment 10/30/2019 5:07 PM COMPUTER LAB ASSISTANT [facility] ([facility]) Comment: A positive NICOLE result may occur in healthy individuals (low titer) or be associated with a variety of diseases. See interpretation chart which is not all inclusive: Pattern Antigen Detected Suggested Disease Association Homogeneous DNA(ds,ss), SLE - High titers Nucleosomes, Histones Drug-induced SLE Speckled Sm, MEAL TEMPERER, SCL-70, SLE,MCTD,PSS (diffuse form), SS-A/SS-B Sjogrens Nucleolar SCL-70, PM-1/SCL High titers Scleroderma, PM/DM Centromere Centromere PSS (limited form) w/Crest syndrome variable Nuclear Dot [id number] Primary Biliary Cirrhosis Nuclear GP210, Primary Biliary Cirrhosis Membrane peewee A,B,C Blood BLOOD SPECIMEN / Unknown Lab Venipuncture / Unknown 10/28/2019 4:41 PM COMPUTER LAB ASSISTANT 10/28/2019 4:57 PM COMPUTER LAB ASSISTANT Narrative [facility] ([facility]) - 10/30/2019 5:07 PM COMPUTER LAB ASSISTANT Performed at: [address] [id number] Storage Administrator: Matty Sy PhD, Phone: [phone] Ordering Provider Unlisted LAB - PATH OLOGY/CYTOLOGY ORDERABLES [facility] ([facility]) [address] [place] [address] * RHEUMATOID FACTOR BLOOD QUANTITATIVE (10/28/2019 4:41 PM COMPUTER LAB ASSISTANT) Rheumatoid Factor <15 <30 IU/mL 10/28/2019 5:26 PM COMPUTER LAB ASSISTANT [facility] Blood BLOOD SPECIMEN / Unknown Lab Venipuncture / Unknown 10/28/2019 4:41 PM COMPUTER LAB ASSISTANT 10/28/2019 4:56 PM COMPUTER LAB ASSISTANT Ordering Provider Unlisted LAB - CHEM ISTRY ORDERABLES Performing Organization Address [facility]/ZIP Co de Phone Number [facility] [address] [phone] * (ABNORMAL) NICOLE BLOOD SCREEN W/REFLEX TITER (10/28/2019 4:41 PM COMPUTER LAB ASSISTANT) Pathologist [facility] NICOLE Positive(A ) 10/30/2019 5:07 PM COMPUTER LAB ASSISTANT [facility] ([facility]) Comment: Negative <1:80 Borderline 1:80 Positive >1:80 Blood BLOOD SPECIMEN / Unknown Lab Venipuncture / Unknown 10/28/2019 4:41 PM COMPUTER LAB ASSISTANT 10/28/2019 4:57 PM COMPUTER LAB ASSISTANT [facility]) - 10/30/2019 5:07 PM COMPUTER LAB ASSISTANT [facility]: [facility] [address] [place], [place] [id number] Storage Administrator: Matty Sy PhD, Phone: [phone] Ordering Provider Unlisted LAB - CHEM ISTRY ORDERABLES Performing Organization Address City/[facility]/ZIP Co de Phone Number [facility] ([facility]) [address] [place] [address] * THYROID PEROXIDASE ANTIBODY (10/28/2019 4:41 PM COMPUTER LAB ASSISTANT) Thyroid Peroxidase TPO Antibody 16 0 - 34 IU/mL 10/30/2019 4:06 AM COMPUTER LAB ASSISTANT [facility] ([facility]) Blood BLOOD SPECIMEN / Unknown Lab Venipuncture / Unknown 10/28/2019 4:41 PM COMPUTER LAB ASSISTANT 10/28/2019 4:57 PM COMPUTER LAB ASSISTANT Narrative [facility] ([facility]) - 10/30/2019 4:06 AM COMPUTER LAB ASSISTANT Performed at: 01 - [facility] [address] [place], [place] [id number] Storage Administrator: Matty Sy PhD, Phone: [phone] Ordering Provider Unlisted LAB - CHEM ISTRY ORDERABLES [facility] ([facility]) [address] [place] [address] * MD DRAIN/INJECT LARGE JOINT/BURSA (09/24/2019 8:35 AM CDT) Michael Cohen MD - 09/24/2019 8:35 AM CDT Michael Garcia MD 09/24/2019 8:36 AM Orthopaedic Surgery Procedure Note Diagnosis: Right knee pain Procedure: Injection of corticosteroid into the right knee Indications: Ann Marie Rae is a 59 year old female who has right knee pain and arthritis. Procedure Details: The patient was informed of her condition, and the potential benefits of injection of steroid. The patient was counseled as to the risks of the procedure and allergies were reviewed. The patient was understanding and agreeable. The patient was placed into the appropriate position. The area was prepped with betadine and alcohol. Utilizing the peripatellar portal, the skin, subcutaneous, and pericapsular tissues were injected with 3 cc 1% lidocaine without epinephrine using a 21 Ga needle. The patient's right knee was then entered. Confirmation of location inside the joint was evidenced by aspiration of straw colored synovial fluid. 2 cc of Kenalog/3cc lidocaine was injected into the joint. The needle was removed and the needle site cleaned with alcohol and dressed with a sterile bandage. The procedure was performed under sterile conditions. The patient tolerated the procedure well. Remainder of plan per note. Michael Garcia MD 09/24/2019 8:36 AM Michael Garcia MD PROCEDURE/MINOR JENNI GICAL ORDERABLES * XR KNEE RIGHT 4VW OR MORE (09/03/2019 1:37 PM CDT) Anatomical Region Laterality Modality Lower Extremity Radiographic Terry ging 09/03/2019 2:44 PM CDT Impressions 09/03/2019 2:49 PM CDT IMPRESSION: Mild degenerative change. This report was electronically signed by KAMARI JOHNSON MD on 09/03/2019 2:49 PM . Narrative 09/03/2019 2:49 PM CDT Exam: XR KNEE RIGHT 4VW History: knee pain Comparison: None. Findings: No acute fracture or dislocation is present. No erosions are seen. The joint spaces are normal. Mild degenerative change is noted with small osteophytes. There is no effusion. Procedure Note Kamari Johnson MD - 09/03/2019 Exam: XR KNEE RIGHT 4VW History: knee pain Comparison: None. Findings: No acute fracture or dislocation is present. No erosions are seen. The joint spaces are normal. Mild degenerative change is noted with small osteophytes. There is no effusion. IMPRESSION: Mild degenerative change. This report was electronically signed by KAMARI JOHNSON MD on09/03/2019 2:49 PM . Michael Garcia MD DIAGNOSTIC IMAGING ORDERABLES * XR ELBOW RIGHT 3VW OR MORE (07/08/2019 3:09 PM CDT) Anatomical Region Laterality Modality Upper Extremity Radiographic Terry ging 07/08/2019 3:09 PM CDT Impressions 07/08/2019 3:30 PM CDT Impression: 1. No acute osseous abnormality. Dictated by Maxim Salgado MD (Resident) IDr. KAMARI MD have personally reviewed and interpreted this examination/study. This report was electronically signed by KAMARI JOHNSON MD on 07/08/2019 3:30 PM . Narrative 07/08/2019 3:30 PM CDT Exam: XR ELBOW RIGHT 3 views Date: 07/08/2019 3:09 PM History: Pain Comparison: Radiographs of the right elbow dated December 16, 2009. Findings: Postoperative appearance of biceps tendon repair is present. There is a 1.2 cm piece of heterotopic ossification adjacent to the proximal radius in the surgical region. No acute fracture is seen. Enthesophyte/bone spurs are seen at the medial and lateral humeral epicondyles. No joint effusion or surrounding soft tissue swelling is identified. Procedure Note Kamari Johnson MD - 07/08/2019 Exam: XR ELBOW RIGHT 3 views Date: 07/08/2019 3:09 PM History: Pain Comparison: Radiographs of the right elbow dated December 16, 2009. Findings: Postoperative appearance of biceps tendon repair is present. There is a 1.2 cm piece of heterotopic ossification adjacent to the proximal radius in the surgical region. No acute fracture is seen. Enthesophyte/bonespurs are seen at the medial and lateral humeral epicondyles. No jointeffusion or surrounding soft tissue swelling is identified. Impression: 1. No acute osseous abnormality. Dictated by Maxim Salgado MD (Resident) I, Dr. KAMARI JOHNSON MD have personally reviewed and interpreted this examination/study. This report was electronically signed by KAMARI JOHNSON MD on07/08/2019 3:30 PM . Warren Franklin III, MD DIAGNOSTIC IM AGING ORDERABLES * THYROID AB PANEL (TPO AB+THYROGLOB AB) (05/13/2019 3:02 PM CDT) Only the most recent of2 resultswithin the time period is included. Thyroid Peroxidase TPO Antibody 10 0 - 34 IU/mL 05/14/2019 2:12 PM CDT [facility] ([facility]) Thyroglobulin Antibody <1.0 0.0 - 0.9 IU/mL 05/14/2019 2:12 PM CDT [facility] ([facility]) Comment:Thyroglobulin Antibo dy measured by Preet Conchita Methodology Blood BLOOD SPECIMEN / Unknown Lab Venipuncture / Unknown 05/13/2019 3:02 PM CDT 05/13/2019 3:24 PM CDT Narrative [facility] ([facility]) - 05/14/2019 2:12 PM CDT Performed at: [facility] [id number] Storage Administrator: Matty Sy PhD, Phone: [phone] Ordering Provider Unlisted LAB - CHEM ISTRY ORDERABLES [facility] ([facility]) [address] [place] [address], [facility] * (ABNORMAL) ERYTHROCYTE SEDIMENTATION RATE (05/13/2019 3:02 PM CDT) Only the most recent of2 resultswithin the time period is included. Erythrocyte Sedimentation Rate Westergren 68(H) 0 - 30 MM/HR 05/13/2019 3:38 PM CDT [facility] Blood BLOOD SPECIMEN / Unknown Lab Venipuncture / Unknown 05/13/2019 3:02 PM CDT 05/13/2019 3:24 PM CDT Ordering Provider Unlisted MD BARBOSA - KARIN REDD ORDERABLES [facility] [address] [phone] * (ABNORMAL) URINALYSIS REFLEX TO MICROSCOPIC NO CULTURE (03/29/2019 10:48 AM CDT) Color UA Yellow Straw, Yellow, Colorless 03/29/2019 11:47 AM T [facility] Clarity UA Clear Clear, Slt Cloudy 03/29/2019 11:47 AM T [facility] Specific [place] UA 1.010 1.005 - 1.030 03/29/2019 11:47 AM [facility] pH UA 5.0 5.0 - 8.0 pH 03/29/2019 11:47 AM T [facility] Protein UA Negative Negative mg/dL 03/29/2019 11:47 AM T [facility] Glucose UA Negative Negative mg/dL 03/29/2019 11:47 AM T [facility] Ketone UA Negative Negative mg/dL 03/29/2019 11:47 AM T [facility] Bilirubin UA Negative Negative mg/dL 03/29/2019 11:47 AM [facility] Blood UA 1+(A) Negative 03/29/2019 11:47 AM [facility] Nitrite UA Negative Negative 03/29/2019 11:47 AM [facility] Leukocyte Esterase 2+(A) Negative 03/29/2019 11:47 AM CDT [facility] Urobilinogen UA Negative Negative mg/dL 03/29/2019 11:47 AM CDT [facility] RBC UA 0-2 None Seen, 0-2, 3-5 /HPF 03/29/2019 11:47 AM CDT [facility] WBC UA 0-5 None Seen, 0-5 /HPF 03/29/2019 11:47 AM CDT [facility] Squamous Epithelial Cells UA 0-2 None Seen, 0-2 /HPF 03/29/2019 11:47 AM CDT [facility] Mucus UA 1+ None, 1+ /LPF 03/29/2019 11:47 AM CDT [facility] Urine URINE SPECIMEN OBTAINED BY CLEAN CATCH PROCEDURE / Unknown Collection / Unknown 03/29/2019 10:48 AM CDT 03/29/2019 11:32 AM CDT Ordering Provider Unlisted LAB - URIN ALYSIS ORDERABLES Performing Organization Address [facility]/ZIP Co de Phone Number [address] [phone] * METHYLMALONIC ACID BLOOD (03/29/2019 10:48 AM CDT) [facility] Methylmalonic Acid 311 0 - 378 nmol/L 04/04/2019 1:09 PM CDT [facility] ([facility]) Disclaimer Comment 04/04/2019 1:09 PM CDT [facility] ([facility]) Comment: This test was developed and its performance characteristics determined by [facility]. It has not been cleared or approved by the Food and Drug Administration. Blood BLOOD SPECIMEN / Unknown Lab Venipuncture / Unknown 03/29/2019 10:48 AM CDT 03/29/2019 11:32 AM CDT Narrative [facility] ([facility]) - 04/04/2019 1:09 PM CDT Performed at: [address] [place] [id number] Storage Administrator: Larry Bustillo MD, Phone: [phone] Florina MARTINEZ-MARKETING COORDINATOR LAB - CH EMISTRY ORDERABLES [facility] ([facility]) [address] [place] [address], [facility] * TRANSFERRIN (03/29/2019 10:48 AM CDT) Only the most recent of4 resultswithin the time period is included. Transferrin 293 174 - 382 mg/dL 03/29/2019 2:55 PM CDT [facility] Transferrin Saturation % 18 16 - 50 % 03/29/2019 2:55 PM CDT [facility] Blood BLOOD SPECIMEN / Unknown Lab Venipuncture / Unknown 03/29/2019 10:48 AM CDT 03/29/2019 11:32 AM CDT Florina OLIVAREZ LAB - CH EMISTRY ORDERABLES Performing Organization Address [facility] Co de Phone Number [facility] [address] [phone] * CULTURE URINE (03/29/2019 10:48 AM CDT) Only the most recent of3 resultswithin the time period is included. Culture Urine <10,000 CFU/mL urogenital [place] JOSE 03/31/2019 12:[address] [facility] Urine URINE SPECIMEN OBTAINED BY CLEAN CATCH PROCEDURE / Unknown Collection / Unknown 03/29/2019 10:48 AM CDT 03/29/2019 11:33 AM CDT Ordering Provider Unlisted LAB - MICR OBIOLOGY ORDERABLES Performing Organization Address City/[facility]/ZIP Co de Phone Number [facility] [address] [phone] * MD DRAIN/INJECT LARGE JOINT/BURSA (10/23/2018 9:34 PM COMPUTER LAB ASSISTANT) Narrative Warren Franklin III, MD - 10/23/2018 9:34 PM COMPUTER LAB ASSISTANT Warren Franklin III, MD 10/23/2018 9:34 PM After discussion of risks, benefits, and alternatives, the patient agreed to corticosteroid injection. The area was marked and cleaned in the usual sterile fashion using Betadine and alcohol. Ethyl chloride for topical anesthesia. The injection was performed at the right posterior subacromial space using 1% plain Lidocaine and 40 mg of Kenalog. This was well tolerated. Warren Franklin III, MD PROCEDURE/MIN OR SURGICAL ORDERABLES * XR SHOULDER RIGHT 2VW OR MORE (10/22/2018 2:50 PM COMPUTER LAB ASSISTANT) Anatomical Region Laterality Modality Upper Extremity Radiographic Terry ging 10/22/2018 2:50 PM COMPUTER LAB ASSISTANT Impressions 10/22/2018 4:38 PM COMPUTER LAB ASSISTANT IMPRESSION: No acute fracture or dislocation. Moderate acromioclavicular joint degenerative change. Dictated by Kurt Fisher MD (rn residential). Dr. FLORES Watson M.D. have personally reviewed and interpreted this examination/study. This report was electronically signed by FLORES HER M.D. on 10/22/2018 4:38 PM . Narrative 10/22/2018 4:38 PM COMPUTER LAB ASSISTANT EXAMINATION: XR SHOULDER RIGHT 2VW OR MORE DATE: 10/22/2018 2:50 PM HISTORY: Right shoulder pain COMPARISON: No prior study is available for comparison. FINDINGS: The osseous structures are intact without acute fracture or dislocation. There is moderate acromioclavicular joint degenerative change with spurring and subchondral cyst formation. The glenohumeral joint space is preserved with minimal osteophyte formation at the inferior aspect of the glenoid. Bone density and texture are normal. Procedure Note Flores Her MD - 10/22/2018 EXAMINATION: XR SHOULDER RIGHT 2VW OR MORE DATE: 10/22/2018 2:50 PM HISTORY: Right shoulder pain COMPARISON: No prior study is available for comparison. FINDINGS: The osseous structures are intact without acute fracture or dislocation. There is moderate acromioclavicular joint degenerative change with spurring and subchondral cyst formation. The glenohumeral joint space is preserved with minimal osteophyte formation at the inferior aspect ofthe glenoid. Bone density and texture are normal. IMPRESSION: No acute fracture or dislocation. Moderate acromioclavicular joint degenerative change. Dictated by Kurt Fisher MD (rn residential). I, Dr. FLORES STOLAR, M.D. have personally reviewed and interpreted this examination/study. This report was electronically signed by FLORES HER M.D. on10/22/2018 4:38 PM . Warren Franklin III, MD DIAGNOSTIC IM AGING ORDERABLES * FL UGI W AIR CONTRAST W KUB (09/11/2018 10:27 AM CDT) Anatomical Region Laterality Modality Abdomen Radiographic Terry ging 09/11/2018 11:0 2 AM CDT Impressions 09/11/2018 5:43 PM CDT IMPRESSION: Dilated esophagus with stricture distally and poor peristalsis. Contributing factors may be achalasia and the lap band. Consider timed barium swallow, manometry, and endoscopy if indicated. Dictated by Sumaya Jaquez MD (rn residential). I, Dr. FLORES HER M.D. have personally reviewed and interpreted this examination/study. This report was electronically signed by FLORES HER M.D. on 09/11/2018 5:43 PM . Narrative 09/11/2018 5:43 PM CDT EXAMINATION: Biphasic upper gastrointestinal series HISTORY: Dysphagia, remote gastric banding with more recent release of the left band, FLUOROSCOPY TIME: 150 seconds TECHNIQUE: The patient was given effervescent crystals followed by thick and thin barium to swallow, and multiple fluoroscopic images were obtained in AP, lateral, and oblique views both standing and supine. FINDINGS: A gastric band is noted. Swallowing is normal. There is no aspiration. There is dilatation of the esophagus with distal tapering just superior to the gastric band. There is delayed emptying of the esophagus. There is no esophageal peristaltic stripping wave. Ineffective esophageal contractions are observed. There is no evidence of mass or ulceration of the esophagus. The gastric folds appear normal. No gastroesophageal reflux is evident. No gastric masses, ulcers, or other abnormalities are identified. All portions of the duodenum and the visible proximal jejunum appear normal. Procedure Note Flores Her MD - 09/11/2018 EXAMINATION: Biphasic upper gastrointestinal series HISTORY: Dysphagia, remote gastric banding with more recent release ofthe left band, FLUOROSCOPY TIME: 150 seconds TECHNIQUE: The patient was given effervescent crystals followed by thick and thin barium to swallow, and multiple fluoroscopic images wereobtained in AP, lateral, and oblique views both standing and supine. FINDINGS: A gastric band is noted. Swallowing is normal. There is no aspiration. There is dilatation of the esophagus with distal tapering just superiorto the gastric band. There is delayed emptying of the esophagus. There isno esophageal peristaltic stripping wave. Ineffective esophagealcontractions are observed. There is no evidence of mass or ulceration of theesophagus. The gastric folds appear normal. No gastroesophageal reflux is evident.No gastric masses, ulcers, or other abnormalities are identified. All portions of the duodenum and the visible proximal jejunum appear normal. IMPRESSION: Dilated esophagus with stricture distally and poor peristalsis. Contributing factors may be achalasia and the lap band. Consider timed barium swallow, manometry, and endoscopy if indicated. Dictated by Sumaya Jaquez MD (rn residential). I, Dr. FLORES HER M.D. have personally reviewed and interpreted this examination/study. This report was electronically signed by FLORES HER M.D. on09/11/2018 5:43 PM . Kurt Akbar MD FLUOROSCOPY ORDERABL ES * PFT (07/27/2018 11:28 AM CDT) Narrative 07/27/2018 11:28 AM CDT Ordered by an unspecified provider. Scanned Document SCANNING ONLY * CARDIAC EKG ORDER (07/27/2018 11:18 AM CDT) Only the most recent of2 resultswithin the time period is included. Narrative 07/27/2018 11:18 AM CDT Ordered by an unspecified provider. Scanned Document CARDIAC SERVICES ORD ERABLES * CT CHEST WO CONT AND HIRES (06/06/2018 2:14 PM CDT) Only the most recent of2 resultswithin the time period is included. Anatomical Region Laterality Modality Computed Tomogra phy 06/06/2018 2:57 PM CDT Impressions 06/08/2018 5:19 PM CDT IMPRESSION: Groundglass opacities in the posterior aspect of the right upper lobe likely represent scarring given no interval change. Mild atelectasis of the left lower lobe. No evidence of interstitial lung disease. Dictated by Rashaad Roldan MD (rn residential). This report was approved by Rashaad Roldan on 06/06/2018 3:56 PM . I, Dr. PATITO SCHOFIELD M.D. have personally reviewed and interpreted this examination/study. This report was electronically signed by PATITO SCHOFIELD M.D. on 06/08/2018 5:19 PM . Narrative 06/08/2018 5:19 PM CDT EXAMINATION: Computed tomography (CT) of the chest without contrast HISTORY: Hypersensitivity pneumonitis, dyspnea with exertion and chronic cough TECHNIQUE: CT of the chest was performed without contrast according to standard protocol. Then, utilizing a high-resolution algorithm, 1 mm noncontiguous axial images of the chest were obtained in inspiration and expiration. FINDINGS: Comparison is made with a CT chest high risk from 04/10/2018. A three-vessel left aortic arch is present. The aorta and main pulmonary artery are normal in course and caliber. Interstitial opacities and groundglass opacities in the posterior aspect of the right upper lobe are unchanged from prior examination. Mild groundglass opacities in the posterior aspect of the left lower lobe may represent atelectasis. There is no focal consolidation. No pleural effusion or focal pleural thickening is identified. There is no evidence of pneumothorax. No suspicious pulmonary nodule is identified. The trachea is patent and midline. No bronchial wall thickening or bronchiectasis is seen. There is no evidence of reticulation or groundglass opacities. No architectural distortion or honeycombing is visible. No air trapping is seen on expiratory images. The heart size is normal. No pericardial effusion is present. No mediastinal, supraclavicular, or axillary lymphadenopathy is seen. A lap band is present. The esophagus is mildly dilated distally with a small amount of layering ingested material. This is decreased from prior exam. The gallbladder is surgically absent. The pancreas is atrophic. Otherwise, the visible portions of the liver, spleen, adrenal glands, kidneys, and bowel are normal. Bone windows demonstrate no suspicious lytic or blastic lesions. The visible osseous structures are intact. Mild degenerative changes are seen in the spine. Procedure Note Patito Schofield MD - 06/08/2018 EXAMINATION: Computed tomography (CT) of the chest without contrast HISTORY: Hypersensitivity pneumonitis, dyspnea with exertion and chronic cough TECHNIQUE: CT of the chest was performed without contrast according to standard protocol. Then, utilizing a high-resolution algorithm, 1 mm noncontiguous axial images of the chest were obtained in inspiration and expiration. FINDINGS: Comparison is made with a CT chest high risk from 04/10/2018. A three-vessel left aortic arch is present. The aorta and main pulmonary artery are normal in course and caliber. Interstitial opacities and groundglass opacities in the posterior aspect of the right upper lobe are unchanged from prior examination. Mild groundglass opacities in the posterior aspect of the left lower lobe may represent atelectasis. There is no focal consolidation. No pleural effusion or focal pleural thickening is identified. There is no evidence of pneumothorax. No suspicious pulmonary nodule is identified. Thetrachea is patent and midline. No bronchial wall thickening or bronchiectasis is seen. There is no evidence of reticulation or groundglass opacities. No architectural distortion or honeycombing is visible. No air trapping is seen on expiratory images. The heart size is normal. No pericardial effusion is present. No mediastinal, supraclavicular, or axillary lymphadenopathy is seen. A lap band is present. The esophagus is mildly dilated distally with a small amount of layering ingested material. This is decreased from prior exam. The gallbladder is surgically absent. The pancreas is atrophic. Otherwise, the visible portions of the liver, spleen, adrenal glands, kidneys, and bowel are normal. Bone windows demonstrate no suspicious lytic or blastic lesions. The visible osseous structures are intact. Mild degenerative changes areseen in the spine. IMPRESSION: Groundglass opacities in the posterior aspect of the right upper lobe likely represent scarring given no interval change. Mild atelectasis of the left lower lobe. No evidence of interstitial lung disease. Dictated by Rashaad Roldan MD (rn residential). This report was approved by Rashaad Roldan on 06/06/2018 3:56 PM . I, Dr. PATITO SCHOFIELD M.D. have personally reviewed and interpretedthis examination/study. This report was electronically signed by PATITO SCHOFIELD M.D. on 06/08/2018 5:19 PM . Kurt Akbar MD CT ORDERABLES * COMPLETE PFT W/WO BRONCHODILATOR (04/11/2018 3:34 PM CDT) Impressions Kam Sal MD - 04/11/2018 3:34 PM CDT [facility] DEPARTMENT OF PULMONARY, CRITICAL CARE, AND SLEEP MEDICINE PULMONARY FUNCTION TESTS Ann Marie Reeds 58 y.o. BMI 45.5. 04/10/2018 INTERPRETATION Please see technologist's comments mentioned above. SPIROMETRY: FEV1/FVC ratio is Normal . FEV1 is Decreased. Forced vital capacity is Decreased. There is no significant response to bronchodilator administration. Inspection of the patient's flow-volume loops shows normal configuration of the inspiratory and expiratory limbs. LUNG VOLUMES: Lung volumes by body plethysmography reveal a reduced TLC. DLCO: Diffusing capacity unadjusted for Hb and COHb is within normal limits. AIRWAY RESISTANCE: The airway resistance and the specific conductance are normal. IMPRESSION: 1. Mild restrictive ventilatory limitation. 2. No reduction in diffusion capacity unadjusted for hemoglobin and carboxyhemoglobin. Recommend repeating the study to include arterial blood gas analysis if clinically indicated. 3. There is no previous study available for comparison. Sherrill Gtz MD Pulmonary / Critical Care Fellow Division of Pulmonary, Critical Care, & Sleep Medicine [facility] I have personally reviewed and agree with the fellow's interpretation. Kam Sal MD Narrative Kam Sal MD - 04/11/2018 3:34 PM CDT Sherrill Gtz MD 04/10/2018 5:15 PM Bronwyn Crowe MD RESPIRATORY THERAPY ORDERABLES * LAB MISC TEST (04/10/2018 7:14 AM CDT) Blood BLOOD SPECIMEN / Unknown Lab Venipuncture / Unknown 04/10/2018 7:14 AM CDT 04/10/2018 9:50 AM CDT Bronwyn Crowe MD LAB SEND OUT [facility] REF LAB NON INTERF [address] * PNEUMONITIS HYPERSENSITIVE PANEL (04/10/2018 7:14 AM CDT) Aspergillus fumigatus 1 None Detected None Detected 05/04/2018 2:20 PM CDT [facility] ([facility]) Aspergillus fumigatus 6 None Detected None Detected 05/04/2018 2:20 PM CDT [facility] ([facility]) Aureobasidium Pullulans None Detected None Detected 05/04/2018 2:20 PM CDT [facility] ([facility]) Comment: Testing includes antibodies directed at Aureobasidium pullulans, Aspergillus flavus, Aspergillus fumigatus #1, Aspergillus fumigatus #2, Aspergillus fumigatus #3, Aspergillus fumigatus #6, Micropolyspora faeni, [place] Serum, Saccharomonospora viridis, Thermoactinomyces candidus, Thermoactinomyces vulgaris #1, and Thermoactinomyces sacchari. [place] Serum None Detected None Detected 05/04/2018 2:20 PM CDT [facility] ([facility]) Micropolyspora faeni None Detected None Detected 05/04/2018 2:20 PM CDT [facility] ([facility]) Thermoactionmyces vulgaris 1 Blood None Detected None Detected 05/04/2018 2:20 PM CDT [facility] ([facility]) Aspergillus flavus None Detected None Detected 05/04/2018 2:20 PM CDT [facility] ([facility]) Aspergillus fumigatus 2 None Detected None Detected 05/04/2018 2:20 PM CDT [facility] ([facility]) Aspergillus fumigatus 3 None Detected None Detected 05/04/2018 2:20 PM CDT [facility] ([facility]) Saccharomonospora viridis None Detected None Detected 05/04/2018 2:20 PM CDT [facility] ([facility]) Thermoactinomyces candidus None Detected None Detected 05/04/2018 2:20 PM CDT [facility] ([facility]) Thermoactinomyces sacchari Blood None Detected None Detected 05/04/2018 2:20 PM CDT [facility] ([facility]) Comment: TEST INFORMATION: Raymundo ayoub Ab, Precipitin Test developed and characteristics determined by [facility] [employer]. See Compliance Statement A: [email or web address] Allergen Phoma betae <0.10 <=0.34 kU/L 05/04/2018 2:20 PM CDT [facility] ([facility]) Allergen Beef <0.10 <=0.34 kU/L 05/04/2018 2:20 PM CDT [facility] ([facility]) Allergen Pork <0.10 <=0.34 kU/L 05/04/2018 2:20 PM CDT [facility] ([facility]) Allergen Feather Mix Negative Negative kU/L 05/04/2018 2:20 PM CDT [facility] [employer] ([facility]) Immunocap Score See Note 2:20 PM CDT [facility] [employer] ([facility]) Comment: REFERENCE INTERVAL: Allergen, Interpretation Less than 0.10 kU/L......Class 0.....No significant level detected 0.10-0.34 kU/L...........Class 0/1...Clinical relevance undetermined 0.35-0.70 kU/L...........Class 1.....Low 0.71-3.50 kU/L...........Class 2.....Moderate 3.51-17.50 kU/L..........Class 3.....High 17.51-50.00 kU/L.........Class 4.....Very High 50.01-100.00 kU/L........Class 5.....Very High Greater than 100.00kU/L..Class 6.....Very High Allergen results of 0.10-0.34 kU/L are intended for specialist use as the clinical relevance is undetermined. Even though increasing ranges are reflective of increasing concentrations of allergen-specific IgE, these concentrations may not correlate with the degree of clinical response or skin testing results when challenged with a specific allergen. The correlation of allergy laboratory results with clinical history and in vivo reactivity to specific allergens is essential. A negative test may not rule out clinical allergy or even anaphylaxis. Performed by [employer], [address] [place] [address] [email or web address], Wes Puga MD, Lab. Director Blood BLOOD SPECIMEN / Unknown Lab Venipuncture / Unknown 04/10/2018 7:14 AM CDT 04/10/2018 9:51 AM CDT Bronwyn Crowe MD LAB - CHEMISTRY ORD ERABLES [employer] [facility] [id number] * PROC EKG IN CLINIC (03/25/2018 6:52 PM CDT) Narrative Arcenio Haines PA-C - 03/25/2018 6:52 PM CDT Arcenio Haines PA-C 03/25/2018 6:52 PM Sinus rhythm Arcenio Haines PA-C ECG ORDERABLES * DEXA BONE DENSITY AXIAL SKELETON (03/23/2018 9:04 AM CDT) Anatomical Region Laterality Modality Mammography 03/23/2018 10:0 0 AM CDT Narrative 03/23/2018 3:58 PM CDT Examination: Dual energy x-ray absorptiometry of the lumbar spine and hip. Clinical Indication: 57-year-old female presented today for osteoporosis screening. Findings: Detailed data from the exam is sent separately to the ordering physician and is also available on [employer], the Radiology Department's computerized picture archive system SUMMARY: Comparison is made to prior study done on 01/25/2012 BONE MINERAL DENSITY (BMD) lumbar spine (L1-4): Normal; T-score 1.9 (was 2.7) BONE MINERAL DENSITY (BMD) left hip: Normal; T-score 0.1 (was 1.6) FRAX 10 year fracture risk Was not calculated because all T score values for the spine/hip/femoral neck at or above -1.0. Definitions: T-score = Standard Deviation Normal: A value for bone mineral density(BMD) within 1 standard deviation of the young adult reference mean. (T-score at or above -1) Low bone mass(osteopenia): A value for bone mineral density(BMD) more than 1 standard deviation below the young adult mean, but less than 2.5 standard deviations below the young adult mean. ( T-score between -1.1 and -2.4) Osteoporosis: A value for bone mineral density 2.5 standard deviations or more below the young adult mean. ( T-score at or below -2.5) Severe osteoporosis: Osteoporosis + the presence of one or more fragility fractures. Please note that T-score values are important in determining increased risk for fractures. The T-score represents the standard deviation above or below the mean bone mineral density for young adults. With each -1 standard deviation decrease in bone mineral density, the risk for fracture doubles exponentially. A T-score of -1 will double the risk , and -2 will be 4 times the risk. As a rule of thumb, a T-score of -1 to -2.5 indicates increasing degrees of osteopenia. This report was approved by Rohan Rodas on 03/23/2018 10:02 AM . IDr. LUCIAN M.D. have personally reviewed and interpreted this examination/study. This report was electronically signed by LUCIAN CORDERO M.D. on 03/23/2018 3:58 PM . Procedure Note Lucian Cordero MD - 03/23/2018 Examination: Dual energy x-ray absorptiometry of the lumbar spine andhip. Clinical Indication: 57-year-old female presented today for osteoporosis screening. Findings: Detailed data from the exam is sent separately to the ordering physician and is also available on [employer], the Radiology Department's computerized picture archive system SUMMARY: Comparison is made to prior study done on 01/25/2012 BONE MINERAL DENSITY (BMD) lumbar spine (L1-4): Normal; T-score 1.9 (was 2.7) BONE MINERAL DENSITY (BMD) left hip: Normal; T-score 0.1 (was 1.6) FRAX 10 year fracture risk Was not calculated because all T score values for the spine/hip/femoral neck at or above -1.0. Definitions: T-score = Standard Deviation Normal: A value for bone mineral density(BMD) within 1 standarddeviation of the young adult reference mean. (T-score at or above -1) Low bone mass(osteopenia): A value for bone mineral density(BMD) morethan 1 standard deviation below the young adult mean, but less than 2.5 standard deviations below the young adult mean. ( T-score between -1.1and -2.4) Osteoporosis: A value for bone mineral density 2.5 standard deviationsor more below the young adult mean. ( T-score at or below -2.5) Severe osteoporosis: Osteoporosis + the presence of one or morefragility fractures. Please note that T-score values are important in determining increased risk for fractures. The T-score represents the standard deviation aboveor below the mean bone mineral density for young adults. With each -1 standard deviation decrease in bone mineral density, the risk forfracture doubles exponentially. A T-score of -1 will double the risk , and -2will be 4 times the risk. As a rule of thumb, a T-score of -1 to -2.5indicates increasing degrees of osteopenia. This report was approved by Rohan Rodas on 03/23/2018 10:[address] LUCIAN Watson M.D. have personally reviewed and interpreted this examination/study. This report was electronically signed by LUCIAN CORDERO M.D. on03/23/2018 3:58 PM . Sidney Mays MD DEXA ORDERABLE S * MAMMO BILAT SCREENING (03/23/2018 8:54 AM CDT) Only the most recent of5 resultswithin the time period is included. Anatomical Region Laterality Modality Breast Bilateral Mammography 03/26/2018 8:30 AM CDT Impressions 03/26/2018 8:43 AM CDT IMPRESSION: No mammographic evidence of malignancy. ASSESSMENT: BI-RADS Category 1: Negative mammogram. RECOMMENDATION: Bilateral screening mammogram in one year. Dictated by Maxim Salgado (Home Care Administrator) Dr. EVIN Watson M.D. have personally reviewed and interpreted this [...] prior study. Warren Pacheco MD MAMMO ORDERABLES * XR CHEST 2VW (03/15/2018 3:36 PM CDT) Only the most recent of3 resultswithin the time period is included. Anatomical Region Laterality Modality Chest Radiographic Terry ging 03/15/2018 3:35 PM CDT Impressions 03/16/2018 3:11 PM CDT FINDINGS/IMPRESSION: Comparison is made with a study from 01/05/2016. There is no pulmonary consolidation, pleural effusion, or pneumothorax. The heart size is normal. A gastric band and right upper quadrant clips are noted. There are degenerative changes in the spine. This report was dictated by Sarath Goetz M.D. (resident). Dr. KAMARI Watson MD have personally reviewed and interpreted this examination/study. This report was electronically signed by KAMARI JOHNSON MD on 03/16/2018 3:11 PM . Narrative 03/16/2018 3:11 PM CDT EXAMINATION: XR CHEST 2VW HISTORY: R06.09: Dyspnea on exertion Procedure Note Kamari Johnson MD - 03/16/2018 EXAMINATION: XR CHEST 2VW HISTORY: R06.09: Dyspnea on exertion FINDINGS/IMPRESSION: Comparison is made with a study from 01/05/2016. There is no pulmonary consolidation, pleural effusion, or pneumothorax. The heart size is normal. A gastric band and right upper quadrant clips are noted. There are degenerative changes in the spine. This report was dictated by Sarath Goetz M.D. (resident). Dr. KAMARI Watson MD have personally reviewed and interpreted this examination/study. This report was electronically signed by KAMARI JOHNSON MD on03/16/2018 3:11 PM . Arcenio Haines PA-C DIAGNOSTIC IMAGING O RDERABLES * IRON BLOOD (02/07/2018 11:27 AM CDT) Only the most recent of3 resultswithin the time period is included. Iron 80 40 - 150 mcg/dL [facility] Blood specimen (specimen) BLOOD SPECIMEN / Unknown 02/07/2018 11:27 AM CDT 02/07/2018 11:41 AM CDT Denisa Fisher DO LAB - CHEMISTRY ALBERTO HURTADO Performing Organization Address [facility] Co de Phone Number [address] [phone] * GLUCOSE VITALITY (10/05/2017 8:18 AM COMPUTER LAB ASSISTANT) Only the most recent of5 resultswithin the time period is included. Glucose 95 70 - 115 mg/dL [facility] 10/05/2017 8:18 AM COMPUTER LAB ASSISTANT 10/05/2017 10:28 AM COMPUTER LAB ASSISTANT Historical Provider LAB - CHEMISTRY Gillian MARY Performing Organization Address [facility] Co de Phone Number [address] [phone] * VITALITY SCREEN (BEAKER) (10/05/2017 8:18 AM COMPUTER LAB ASSISTANT) Only the most recent of4 resultswithin the time period is included. Blood specimen (specimen) BLOOD SPECIMEN / Unknown 10/05/2017 8:18 AM COMPUTER LAB ASSISTANT Narrative [facility] - 10/05/2017 11:59 AM COMPUTER LAB ASSISTANT The following orders were created for panel order [facility] Vitality Screening. Procedure Abnormality Status --------- ------ Hemoglobin A1c[[id number]] Final result Fasting Glucose[[id number]] Normal Final result Lipid Panel[[id number]] Abnormal Final result Please view results for these tests on the individual orders. Historical Provider LAB - CHEMISTRY Gillian MARY Performing Organization Address [facility] Co de Phone Number [facility] [address] * HEMOGLOBIN A1C (10/05/2017 8:18 AM COMPUTER LAB ASSISTANT) Only the most recent of5 resultswithin the time period is included. Hemoglobin A1c 5.8 4.4 - 6.3 % [facility] Estimated Average Glucose 120 mg/dL [facility] Comment: HbA1c Interpretation: Treatment target values recommended by ADA and other clinical organizations should be used to evaluate metabolic control in patients. Treatment Target Values: Normal : < 5.7% Pre-diabetes: 5.7-6.4% Diabetes: Equal to or greater than 6.5% Reference: [place] [employer] Standards of Care in Diabetes -2014 In patients 70 years and older consider HbA1c target range of 7.0-7.5% Reference: Diabetes Mellitus in Older People: Position Statement on behalf of the International Association of Gerontology and Geriatrics (IAGG), the Diabetes Working [employer] for Older People (EDWPOP), and the International Task Force of Experts in Diabetes. Tyrone Quezada et al. J [place] [employer]. 2012 Test results diagnostic of diabetes should be repeated for confirmation. The [employer] G8 assay for the measurement of HbA1c is a National Glycohemoglobin Standardization Program (NGSP)certified method. Results for patients with HbE disease should be interpreted with caution as this hemoglobinopathy has been shown to interfere with the Tosoh G8 assay. Blood specimen (specimen) BLOOD SPECIMEN / Unknown 10/05/2017 8:18 AM COMPUTER LAB ASSISTANT 10/05/2017 10:28 AM COMPUTER LAB ASSISTANT Historical Provider LAB - CHEMISTRY O RDERABLES [facility] [address] [place] [address] * URINALYSIS - POINT OF CARE (AMB) [facility] (06/27/2016 3:40 PM CDT) Only the most recent of2 resultswithin the time period is included. Glucose UA neg [facility] Bilirubin UA POCT neg [facility] Ketones UA POCT neg COUNTS INCLUDE 234 BEDS AT THE [facility] Specific [place] UA 1.030 COUNTS INCLUDE 234 BEDS AT THE [facility] Blood Urine POCT neg COUNTS INCLUDE 234 BEDS AT THE [facility] pH UA 6.0 [facility] Protein UA 1+ [facility] Urobilinogen UA neg COUNTS INCLUDE 234 BEDS AT THE [facility] Nitrite UA neg [facility] WBC UA neg [facility] Urine specimen (specimen) 06/27/2016 3:40 PM CDT Ramona Kang MD LAB - POINT OF CARE ORDERABLES COUNTS INCLUDE 234 BEDS AT THE [facility] * NEISSERIA GONORRHOEAE ISABELLE (06/27/2016 3:30 PM CDT) Neisseria gonorrhoeae ISABELLE Accession No: [id number] Specimen: Urine Reference: [id number] Test: Neisseria Gonorrhoeae, Nucleic Acid Amplification Test Interpretation: Neisseria gonorrhoeae: Not Detected Reference Range: Not Detected Comment: Performance characteristics of testing for Chlamydia trachomatis and Neisseria gonorrhoeae on urine specimens from female patients using the Gen-Probe Aptima Combo 2 on the [place] System were determined by the [facility] at [facility]. It has not been cleared or approved by the U.S. Food and Drug Administration (FDA). The FDA has determined that such clearance or approval is not necessary. This test is used for clinical pruposes and should not be regarded as investigational or for research. This laboratory is certified under the Clinical Laboratory Improvements Amendments of 1988 (CLIA 1988) as qualified to perform high complexity laboratory testing. Test performed at [facility], [address] [place] [address] This case has been personally reviewed and interpreted by the attending (teaching) pathologist. Final Diagnosis performed by Sarath Alexander PHD. Electronically signed 06/29/2016 [facility] ([facility]) Urine specimen (specimen) URINE / Unknown 06/27/2016 3:30 PM CDT 06/27/2016 3:55 PM CDT Narrative [facility] ([facility]) - 06/29/2016 1:27 PM CDT Specimen Type->Urine Ramona Kang MD LAB - MICROBIOLOGY O RDERABLES [facility] ([facility]) * CHLAMYDIA TRACHOMATIS ISABELLE (06/27/2016 3:30 PM CDT) Chlamydia trachomatis ISABELLE Accession No: [id number] Specimen: Urine Reference: [id number] Test: Chlamydia Trachomatis, Nucleic Acid Amplification Test Interpretation: Chlamydia trachomatis: Not Detected Reference Range: Not Detected Comment: Performance characteristics of testing for Chlamydia trachomatis and Neisseria gonorrhoeae on urine specimens from female patients using the Gen-Probe Aptima Combo 2 on the [place] [facility] were determined by the [facility] at [facility]. It has not been cleared or approved by the U.S. Food and Drug Administration (FDA). The FDA has determined that such clearance or approval is not necessary. This test is used for clinical pruposes and should not be regarded as investigational or for research. This laboratory is certified under the Clinical Laboratory Improvements Amendments of 1988 (CLIA 1988) as qualified to perform high complexity laboratory testing. Test performed at [facility], [address] [place] [address] This case has been personally reviewed and interpreted by the attending (teaching) pathologist. Final Diagnosis performed by Sarath Alexander PHD. Electronically signed 06/29/2016 [facility] ([facility]) Urine specimen (specimen) URINE / Unknown 06/27/2016 3:30 PM CDT 06/27/2016 3:55 PM CDT [facility] ([facility]) - 06/29/2016 1:27 PM CDT Specimen Type->Urine Ramona Kang MD LAB - MICROBIOLOGY O USMAN [facility] ([facility]) * LAB HISTORICAL RESULTS-ONBASE (01/19/2016) 01/19/2016 [facility] - 01/19/2016 11:52 AM COMPUTER LAB ASSISTANT Historical Provider LAB - CHEMISTRY O USMAN Performing Organization Address City/[facility]/[place] [address], [facility] * PTT [facility] (01/15/2016 2:58 PM COMPUTER LAB ASSISTANT) APTT 27.1 23.0 - 38.4 Seconds [facility] Comment:Suggested therapeuti c range for full dose I.V. heparin therapy for venous thromboembolism is 66.0-91.0 seconds. Blood specimen (specimen) BLOOD SPECIMEN / Unknown 01/15/2016 2:58 PM COMPUTER LAB ASSISTANT 01/15/2016 3:32 PM COMPUTER LAB ASSISTANT [facility] - 01/15/2016 4:23 PM COMPUTER LAB ASSISTANT Is patient on Heparin, Argatroban or Dabigatran?->N Historical Provider LAB - COAGULATION ORDERABLES [address] [phone] * PT-INR [facility] (01/15/2016 2:58 PM COMPUTER LAB ASSISTANT) PT 12.2 12.1 - 14.8 Seconds [facility] INR 0.9 See Comment [facility] Comment: Suggested therapeutic range for low-intensity coumadin therapy for venous thromboembolism prophylaxis is an INR of 2.0-3.0. For high risk patients (Mitral Valve Prosthesis, Atrial Fibrillation, history of TIA/stroke), suggested prophylactic therapeutic range is an INR of 2.5-3.5. Blood specimen (specimen) BLOOD SPECIMEN / Unknown 01/15/2016 2:58 PM COMPUTER LAB ASSISTANT 01/15/2016 3:32 PM COMPUTER LAB ASSISTANT Narrative [facility] - 01/15/2016 4:22 PM COMPUTER LAB ASSISTANT Is patient on Heparin, Argatroban or Dabigatran?->N Historical Provider LAB - COAGULATION ORDERABLES [address] [phone] * XR WRIST RIGHT 3VW OR MORE (08/20/2014 12:40 PM CDT) Anatomical Region Laterality Modality Wrist / Hand Other Impressions 08/20/2014 4:25 PM CDT Impression: Mild dorsal wrist soft tissue swelling without evidence of fracture. If the patient has snuffbox tenderness, consider followup radiographs. Dictated by Patito Desouza M.D. (Resident) This report was approved by Patito Desouza M.D. on 08/20/2014 3:01 PM . I, Dr. ANDER DEL CID M.D. have personally reviewed and interpreted this examination/study. This report was electronically signed by ANDER DEL CID M.D. on 08/20/2014 4:25 PM . Narrative 08/20/2014 4:25 PM CDT Exam: Right wrist, 3 views Date: 08/20/2014 History: Fall on outstretched hand this morning with wrist pain/swelling Comparison: None Findings: There is no acute fracture or dislocation. The joint spaces are normal. Minimal spurring is seen at the distal pole of the lateral scaphoid. Bony mineralization is normal. There is mild dorsal wrist soft tissue swelling. Procedure Note Ander Del Cid MD - 02/24/2018 Exam: Right wrist, 3 views Date: 08/20/2014 History: Fall on outstretched hand this morning with wrist pain/swelling Comparison: None Findings: There is no acute fracture or dislocation. The joint spaces are normal.Minimal spurring is seen at the distal pole of the lateral scaphoid. Bonymineralization is normal. There is mild dorsal wrist soft tissueswelling. IMPRESSION Impression: Mild dorsal wrist soft tissue swelling without evidence of fracture. Ifthe patient has snuffbox tenderness, consider followup radiographs. Dictated by Patito Desouza M.D. (Resident) This report was approved by Patito Desouza M.D. on 08/20/2014 3:01 PM . I, Dr. ANDER DEL CID M.D. have personally reviewed and interpreted thisexamination/study. This report was electronically signed by ANDER DEL CID M.D. on08/20/2014 4:25 PM . Warren Pacheco MD DIAGNOSTIC IMAGING O RDERABLES * T3 TOTAL (07/30/2014 12:16 PM CDT) T3 Total 92 58 - 159 ng/dL [facility] Serum 07/30/2014 12:1 6 PM CDT 07/30/2014 1:11 PM CDT Warren Pacheco MD LAB - CHEMISTRY ALBERTO HURTADO [facility] Organization Address City/State/ZIP Co de Phone Number [address] [phone] * HELICOBACTER PYLORI ANTIBODY IGG (05/29/2014 2:46 PM CDT) Helicobacter pylori Antibody IgG <0.9 0.0 - 0.8 U/mL [facility] (BEAKER) Comment: Negative <0.9 Indeterminate 0.9 - 1.0 Positive >1.0 Blood specimen (specimen) BLOOD SPECIMEN / Unknown 05/29/2014 2:46 PM CDT 05/29/2014 3:11 PM CDT Narrative [facility] ([facility]) - 06/02/2014 1:12 PM CDT Performed at: [address] [place] [id number] Storage Administrator: Gonzales Singh MD, Phone: [phone] Warren Pacheco MD LAB - CHEMISTRY ORDE BRYANT Performing Organization Address [facility] Co de Phone Number [facility] ([facility]) * HELICOBACTER PYLORI ANTIBODY IGM (05/29/2014 2:46 PM CDT) Pathologist [facility] Helicobacter pylori Antibody IgM <9.0 0.0 - 8.9 units [facility] ([facility]) Comment: Negative <9.0 Equivocal 9.0 - 11.0 Positive >11.0 This test was developed and its performance characteristics determined by [employer] It has not been cleared or approved by the Food and Drug Administration. Results of this test are for investigational purposes only. The result should not be used as a diagnostic procedure without confirmation of the diagnosis by another medically diagnostic product or procedure. Blood specimen (specimen) BLOOD SPECIMEN / Unknown 05/29/2014 2:46 PM CDT 05/29/2014 3:11 PM CDT Narrative [facility] ([facility]) - 06/02/2014 5:11 PM CDT Performed at: [address] [place] [address] [id number] Storage Administrator: Gonzales Singh MD, Phone: [phone] Warren Pacheco MD LAB - SEROLOGY ORDER JOSEFINA Performing Organization Address [facility]/ZIP Co de Phone Number [facility] ([facility]) * XR ANKLE RIGHT 3VW OR MORE (12/17/2013 1:04 PM COMPUTER LAB ASSISTANT) Anatomical Region Laterality Modality Lower Extremity Other Impressions 12/19/2013 3:49 PM COMPUTER LAB ASSISTANT IMPRESSION: No acute osseous injury. Diffuse soft tissue swelling suggesting ligamentous injury. Report dictated by Andi Turner MD (resident). This report was approved by Andi Turner M.D. on 12/19/2013 3:[address] FLORES Watson M.D. have personally reviewed and interpreted this examination/study. This report was electronically signed by FLORES HER M.D. on 12/19/2013 3:49 PM . Narrative 12/19/2013 3:49 PM COMPUTER LAB ASSISTANT EXAM: RIGHT ANKLE 5 VIEWS HISTORY: Sprain COMPARISON: None available FINDINGS: The bones are intact and well aligned. No acute fracture or dislocation is seen. The ankle mortise is maintained. There is diffuse soft tissue swelling about the ankle, suggesting ligamentous injury. Procedure Note Flores Her MD - 02/24/2018 EXAM: RIGHT ANKLE 5 VIEWS HISTORY: Sprain COMPARISON: None available FINDINGS: The bones are intact and well aligned. No acute fracture ordislocation is seen. The ankle mortise is maintained. There is diffusesoft tissue swelling about the ankle, suggesting ligamentous injury. IMPRESSION IMPRESSION: No acute osseous injury. Diffuse soft tissue swelling suggesting ligamentous injury. Report dictated by Anid Turner MD (resident). This report was approved by Andi Turner M.D. on 12/19/2013 3:[address] FLORES Watson M.D. have personally reviewed and interpreted thisexamination/study. This report was electronically signed by FLORES HER M.D. on 12/19/20133:49 PM . Miguel Nava MD DIAGNOSTIC TERRY GING ORDERABLES * (ABNORMAL) [facility] HISTORICAL (10/08/2013 9:36 AM COMPUTER LAB ASSISTANT) Cholesterol Total 248(H) <200 mg/dL [facility] HDL 64 > OR = 40 mg/dL [facility] Comment: ATP III classification of HDL cholesterol: <40 mg/dL Low; considered a major risk factor >60 mg/dL High; considered a negative risk factor Triglycerides 59 <150 mg/dL [facility] Comment: ATP III classification of Triglycerides: < 150 mg/dL Normal triglycerides 150-199 mg/dL Borderline-high triglycerides 200-400 mg/dL High triglycerides > 500 mg/dL Very high triglycerides LDL Calculated 172(H) 0 - 100 mg/dL [facility] Comment: ATP III classification of LDL cholesterol: <100 mg/dL Optimal 100-129 Near optimal/above optimal 130-159 Borderline high 160-189 High >190 Very high Hemoglobin A1c 5.3 4.4 - 6.3 % [facility] Estimated Average Glucose 105 mg/dL [facility] 10/08/2013 9:36 AM COMPUTER LAB ASSISTANT 10/08/2013 10:15 AM COMPUTER LAB ASSISTANT Historical Provider LAB - CHEMISTRY Gillian MARY [address] [phone] * [facility] (01/22/2013 2:30 PM COMPUTER LAB ASSISTANT) FSH 94.5 . mIU/mL [facility] Comment: Follicular phase 3.5 - 12.5 Ovulation phase 4.7 - 21.5 Luteal phase 1.7 - 7.7 Postmenopausal 25.8 - 134.8 Performed at: [address] [id number] Storage Administrator: Alexander Butt PhD, Phone: [phone] 01/22/2013 2:30 PM COMPUTER LAB ASSISTANT 01/22/2013 4:59 PM COMPUTER LAB ASSISTANT Sidney Mays MD LAB - CHEMISTR Y ORDERABLES [address] [phone] * GLUCOSE (10/03/2012 8:40 AM COMPUTER LAB ASSISTANT) Glucose 74 70 - 115 mg/dL [facility] 10/03/2012 8:40 AM COMPUTER LAB ASSISTANT 10/03/2012 11:27 AM COMPUTER LAB ASSISTANT Historical Provider LAB - CHEMISTRY O USMAN [facility] [address] [place] [id number] [place] [address] * (ABNORMAL) CHOLESTEROL BLOOD (10/03/2012 8:40 AM COMPUTER LAB ASSISTANT) Cholesterol Total 203(H) <200 mg/dL [facility] 10/03/2012 8:40 AM COMPUTER LAB ASSISTANT 10/03/2012 11:27 AM COMPUTER LAB ASSISTANT Historical Provider LAB - CHEMISTRY Gillian MARY Performing Organization Address [facility] Co de Phone Number [phone] [place] [address] * XR FOOT RIGHT 2VW (06/14/2012 1:48 PM CDT) Anatomical Region Laterality Modality Ankle / Foot Other Impressions 06/15/2012 11:56 AM CDT IMPRESSION: Oblique fracture of the fourth proximal phalanx. This examination has been personally reviewed and interpreted by Gunner Marie M.D (attending radiologist). Report dictated by Richard Holguin M.D. (rn residential). Narrative 06/15/2012 11:56 AM CDT EXAM: RIGHT FOOT, 2 VIEWS HISTORY: injury on May COMPARISON: None FINDINGS: There is a oblique fracture of the fourth proximal phalanx which does not extend to the joint space. There is associated soft tissue swelling of the first and fourth digits. Procedure Note Gunner Marie MD - 02/25/2018 EXAM: RIGHT FOOT, 2 VIEWS HISTORY: injury on May COMPARISON: None FINDINGS: There is a oblique fracture of the fourth proximal phalanx which does notextend to the joint space. There is associated soft tissue swelling ofthe first and fourth digits. IMPRESSION IMPRESSION: Oblique fracture of the fourth proximal phalanx. This examination has been personally reviewed and interpreted by Raghav Barr (attending radiologist). Report dictated by Richard Holguin M.D. (rn residential). Indira Fortune MD DIAGNOSTIC IMAGING O RDERABLES Care Teams Chief Operating Engineer Relationship Specialty Start Date End Date Aiden Fu MD [address] [place] [phone] PCP - General 09/10/21
--- OUTSIDE RECORDS SUMMARY | 2025-02-03 17:06 | XMS_ITS | Encounter Summary ---
Author Organization [facility] Health Address [address] [place] [place] [address] Care Team Providers Care Poultry Packer Name Role Phone MilagroArcenio de la paz Primary Care Provider [phone] Aiden Fu MD Primary Care Provider [phone] Aiden Fu MD Unavailable [phone] Encounter Details Date Type Department Care Team (Late Contact Info) Description 08/26/[address] [facility] [address] [place] [phone] Unlisted, Ordering Provider, Social History Tobacco Use Types Packs/Day Years Used Date Smoking Tobacco: Never Smokeless Tobacco: Never Alcohol Use Standard Drinks/Week Comments Yes 1.7 (1 standard drink = 0.6 oz p ure alcohol) about 1x/mo Sex and Gender Information Value Date Recorded Sex Assigned at Not on file Gender Identity Not on file Sexual Orientation Straight 06/09/2021 2: 00 PM CDT documented as of this encounter Plan of Treatment Upcoming Encounters Date Type Department Care Team (Late Contact Info) Description 03/18/2025 12:40 PM CDT Office Visit [facility] [phone] [facility] [address] [place] [address] Laney Bernabe, INSPECTOR REPAIRER [employer]ST[employer]-SEMICONDUCTOR WAFER INSPECTOR [address] [facility] [address] [place] [phone] 09/17/2025 1:00 PM CDT Office Visit [facility] [address] [facility] [place] [address] Laney Bernabe, INSPECTOR REPAIRER [employer]ST[employer]SEMICONDUCTOR WAFER INSPECTOR [address] [facility] [address] [place] [phone] documented as of this encounter Visit Diagnoses Not on filedocumented in this encounter Additional Health Concerns Infection Onset Date Last Indicated Resolved Time COVID-19 Under Investigation 07/13/2020 07/13/2020 07/13/2020 7:39 PM CDT documented as of this encounter Care Teams Poultry Packer Relationship Specialty Start Date End Date Arcenio Richardson DO [address] [facility] [address] [place] [address] PCP - General Family Medicine 12/10/19 09/09/21 Aiden Fu MD [address] [place] [address] PCP - General 09/10/21 Aiden Fu MD [address] [place] [address] PCP - Attributed-[facility] 03/27/23 07/14/23 documented as of this encounter
--- OUTSIDE RECORDS SUMMARY | 2025-02-03 17:06 | XMS_ITS | Referral Summary ---
Author Organization [facility] Address [address] [place] [address] Care Team Providers Care Dining Room Server Name Role Phone Aiden Fu MD Primary Care Provider [phone] Source Comments [facility],non-owned Affiliates and Associated Physician Practices is amultiple site organization consisting of ambulatory clinics and hospital sitesin [place], [place], [place] and [place]. This disclosure is being madepursuant to the Care Everywhere program and may not contain all information available regarding this patient. Last updated 18.[facility] Allergies No known active allergies Medications * [...] 03/27/2011 INFLUENZA VACCINE 08/29/2018 TDAP (7yrs+) 08/27/2014 Social History Tobacco Use Types Packs/Day Years [...] Mass Index 33.64 09/17/2024 12:24 PM CDT Functional Status Functional Status Response Date of Assess ment Is person deaf or have serious hearing difficult y? No 06/28/2021 Is person blind or have serious difficulty seein g? No 06/28/2021 Does person have serious dif ficulty walking/climbing stairs? No 06/28/2021 Does person have difficulty dressing/bathing? No 06/28/2021 Does person have difficulty doing errands alone? No 06/28/2021 Cognitive Status Response Date of Assessm ent Does person have difficulty concentrating/remembering/making decisions? No 06/28/2021 Plan of Treatment Upcoming Encounters Date Type Department Care Team (Late st Contact Info) Description 03/18/2025 12:40 PM CDT Office Visit [facility] Weight Management Services [address] [place] [address], [facility] [address] [place] [address] Laney Bernabe, LADI-ONLINE TRADER [address] [place] [address] 09/17/2025 1:00 PM CDT Office Visit [facility] Weight Management Services [address] [place] [address], [facility] [address] [place] [address] Laney Bernabe APRN-ONLINE TRADER [address] [place] [address] Procedures Procedure Name Priority Date/Time Associated Diagnosis Comments COMPREHENSIVE METABOLIC PANEL Routine 06/05/2024 12:32 PM CDT History of gastric bypass LIPID PROFILE Routine 12/02/2019 3:58 PM PROCESSING ENGINEER Dyslipidemia Hypothyroidism, unspecified type MAMMO BILAT SCREENING Routine 03/23/2018 8:54 AM CDT Screening for breast cancer from Last 3 Months or Most Recently Relevant to Health Maintenance Results * (ABNORMAL) COMPREHENSIVE METABOLIC PANEL (06/05/2024 12:32 PM CDT) BUN 16 7 - 26 mg/dL 06/05/2024 1:54 PM [facility] Creatinine 0.89 0.56 - 0.96 mg/dL 06/05/2024 1:54 PM [facility] Sodium 142 136 - 145 mmol/L 06/05/2024 1:54 PM [facility] Potassium 4.4 3.5 - 4.5 mmol/L 06/05/2024 1:54 PM [facility] Chloride 106 98 - 107 mmol/L 06/05/2024 1:54 PM [facility] CO2 28 22 - 29 mmol/L 06/05/2024 1:54 PM [facility] Glucose 85 70 - 115 mg/dL 06/05/2024 1:54 PM [facility] Calcium 9.6 8.4 - 10.2 mg/dL 06/05/2024 1:54 PM [facility] Protein Total 7.7 6.0 - 8.3 g/dL 06/05/2024 1:54 PM [facility] Albumin 4.0 3.4 - 5.0 g/dL 06/05/2024 1:54 PM [facility] Bilirubin Total 0.6 0.2 - 1.2 mg/dL 06/05/2024 1:54 PM [facility] Alkaline Phosphatase 96 40 - 150 U/L 06/05/2024 1:54 PM [facility] ALT 15 5 - 55 U/L 06/05/2024 1:54 PM [facility] AST 24 5 - 34 U/L 06/05/2024 1:54 PM [facility] Anion Gap 8 6 - 16 06/05/2024 1:54 PM [facility] BUN/Creatinine Ratio 18 7 - 23 06/05/2024 1:54 PM [facility] Osmolality Calculated 294 275 - 295 mOsm/kg 06/05/2024 1:54 PM [facility] Albumin/Globulin Ratio 1.1 1.1 - 2.3 06/05/2024 1:54 PM [facility] eGFR by CKD-EPI 72(L) >=90 mL/min/1.7 3 m2 06/05/2024 1:54 PM [facility] Blood BLOOD SPECIMEN / Unknown Lab Venipuncture / Unknown 06/05/2024 12:32 PM CDT 06/05/2024 1:22 PM T Mateo Dash MD LAB - CHEMISTRY ALBERTO HURTADO [facility] Organization Address City/State/ZIP Co de Phone Number [facility] [address] [place] [id number], [facility] [phone] * (ABNORMAL) LIPID PROFILE (12/02/2019 3:58 PM PROCESSING ENGINEER) Cholesterol Total 232(H) <200 mg/dL 12/02/2019 4:42 PM [facility] HDL 55 >40 mg/dL 12/02/2019 4:42 PM [facility] Comment: ATP III Classification of HDL Cholesterol: <40 mg/dL: Considered a major risk factor. >60 mg/dL: Considered a negative risk factor. LDL Calculated 151(H) <100 mg/dL 12/02/2019 4:42 PM [facility] Comment: ATP III Classification of LDL Cholesterol: <100 mg/dL: Optimal 100 - 129 mg/dL: Near Optimal/Above Optimal 130 - 159 mg/dL: Borderline High 160 - 189 mg/dL: High >190 mg/dL: Very High Triglycerides 128 <150 mg/dL 12/02/2019 4:42 PM [facility] Comment: ATP III Classification of Triglycerides: <150 mg/dL: Normal 150 - 199 mg/dL: Borderline High 200 - 400 mg/dL: High >500 mg/dL: Very High Blood BLOOD SPECIMEN / Unknown Lab Venipuncture / Unknown 12/02/2019 3:58 PM PROCESSING ENGINEER 12/02/2019 4:14 PM PROCESSING ENGINEER Ordering Provider Unlisted LAB - CHEM ISTRY ORDERABLES Performing Organization Address City/State/[facility] Co de Phone Number [address] [phone] * MAMMO BILAT SCREENING (03/23/2018 8:54 AM CDT) Anatomical Region Laterality Modality Breast Bilateral Mammography 03/26/2018 8:30 AM CDT Impressions 03/26/2018 8:43 AM CDT IMPRESSION: No mammographic evidence of malignancy. ASSESSMENT: BI-RADS Category 1: Negative mammogram. RECOMMENDATION: Bilateral screening mammogram in one year. Dictated by Maxim Salgado (Photogrammetric Engineer) I, Dr. EVIN GRISSOM M.D. have personally [...] 12:41 PM 06/29/2021 7:19 PM Care Teams Dining Room Server Relationship Specialty Start Date End Date Aiden Fu MD [address] [place] [id number] PCP - General 09/10/21
--- OUTSIDE RECORDS SUMMARY | 2025-02-03 17:06 | XMS_ITS | CONTINUITY OF CARE DOCUMENT ---
Author Name adriarakesh socorro Address Unknown Organization [facility] Office Address [address] [place] [address] [address] [place] [address] Phone [phone] Care Team Providers Care Cushion Stuffer Name Role Phone JAE PEOPLES, FLAQUITO Rushing Unavailable [phone]
[2025-02-03 18:54] LABS: Alanine Aminotransferase 17 U/L (6-35); Albumin Level 4.1 g/dL (3.5-5.1); Alkaline Phosphatase 87 U/L (38-126); Anion Gap 7 mmol/L (4-12); Aspartate Amino Transferase 56 U/L (14-36); Bilirubin,Total 0.8 mg/dL (0.2-1.3); Blood Urea Nitrogen 14 mg/dL (7-17); Carbon Dioxide 31 mmol/L (22-30); Chloride 101 mmol/L (98-107); Estimated Glomerular Filt Rate > 60; Glucose 94 mg/dL (65-110); Potassium 4.2 mmol/L (3.4-5.0); Sodium 139 mmol/L (137-145)
[2025-02-03 19:23] LABS: Thyroid Stimulating Hormone < 0.015 uIU/mL (0.465-4.680)
[2025-02-03 20:12] LABS: Hemoglobin A1C 5.1 % (<5.7)
== END 2025-02-03 14:40 | disposition home or self-care (01) ==
PROVIDERS: PCP Nurse Practitioner Adult Health; Visit Provider Nurse Practitioner Adult Health
DX: E03.9 Hypothyroidism, unspecified (principal); R73.09 Other abnormal glucose
CPT/HCPCS: 36415; 80053; 83036; 84443

== ENCOUNTER 2025-05-13 13:57 | Outpatient (CLI) | payer MEDICARE, SELFPAY ==
--- NOTE | ~2025-05-13 | XR_ITS ---
XR_[id number]_CR Ordering provider: Sherri Starr APRN History: . W19.XXXA - Unspecified fall, initial encounter . Comparison: August 01, 2024 FINDINGS: VERTEBRAL BODIES: Normal height and alignment. No visible fracture or subluxation. The dens is intact . Anterior syndesmophytes are seen at the level of C4-C5, C5-C6 and C6-C7 unchanged from previous exa mination. DISK SPACES: Well maintained. Multilevel uncovertebral joint osteoarthritic changes. PARASPINOUS SOFT TISSUES: No prevertebral soft tissue swelling. IMPRESSION: No acute osseous abnormality cervical spine. DISH changes unchanged from previous examination. Reviewed, dictated and finalized at location A.
--- NOTE | ~2025-05-13 | XR_ITS ---
XR shoulder LT min 2V Ordering provider: Sherri Starr APRN History: . M25.512 - Pain in left shoulder . Comparison: None. FINDINGS: BONES: No acute fracture or dislocation. JOINT SPACES: The acromioclavicular joint shows mild osteoarthritic changes. The glenohumeral joint i s normal. SOFT TISSUES: Normal. IMPRESSION: No acute osseous abnormality left shoulder. Reviewed, dictated and finalized at location A.
--- OUTSIDE RECORDS SUMMARY | 2025-05-13 14:53 | XMS_ITS | Clinical Summary ---
Author Organization [facility] Address [address] [place] [address] Care Team Providers Care Composing Room Supervisor Name Role Phone Aiden Fu MD Primary Care Provider [phone] Source Comments [facility],non-owned Affiliates and Associated Physician Practices is amultiple site organization consisting of ambulatory clinics and hospital sitesin [place], [place], [place] and [place]. This disclosure is being madepursuant to the Care Everywhere program and may not contain all information available regarding this patient. Last updated 18.[facility] Allergies No known active allergies Medications * This document contains information received from the source organization and may not represent a complete record from that organization. * Be aware that medications may not be up to date on this document. Alwaysverify current medications with the patient. levothyroxine (SYNTHROID) 88 MCG tablet Take 1 (one) tablet by mouth once daily 01/14/20 21 Active oxybutynin CR 24hr (DITROPAN-XL) 10 MG tablet Take 1 (one) tablet by mouth once daily Active venlafaxine (EFFEXOR) 37.5 MG tablet 12/16/19 22 Active Vitamin E 180 MG (400 UNIT) CAPS Take 1 (one) capsule by mouth 3 times daily Active tuberculin syringe-needle 27G X 1/2 1 ML syringe BD SafetyGlide Tuberculin Regular Bevel 1 mL 27 x 1/2 syringe Active Cholecalcifero l (Vitamin D3) 25 MCG (1000 UT) Take 1 (one) capsule by mouth once daily 30 capsule 09/19/20 23 Active Additional Information Patient not taking.Reported on 12/26/2023 triamcinolone acetonide (Kenalog) 0.1 % ointment 03/12/20 24 Active phentermine (Adipex-P) 37.5 MG tablet TAKE ONE TABLET BY MOUTH EVERY DAY BEFORE BREAKFAST 30 tablet 05/07/20 25 Active phentermine (Adipex-P) 37.5 MG tablet TAKE 1 TABLET BY MOUTH DAILY BEFORE BREAKFAST 30 tablet 03/27/20 25 025 Discontinued Active Problems Problem Noted Date Diagnosed Date [...] sleep apnea 01/21/2012 Gastric banding status 01/21/2012 Encounters Date Type Department Care Team Description 05/07/2025 Refill [facility] Weight Management Services [address] [place] [address], [facility] [address] [place], [place] [id number] Laney Bernabe APRN-TEST BORE HELPER Refill Request 03/24/2025 Refill [facility] Weight Management Services [address], [address] [place] [address] Beto Almaraz MD Refill Request from Last 3 Months Immunizations Immunization Administration Dates Next Due INFLUENZA VACCINE, TRIV. 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 Not on file Not on file Last Filed Vital Signs Vital Sign Reading [...] 12:24 PM CDT Height 162.6 cm (5' 4) 09/17/2024 12:24 PM CDT Body Mass Index 33.64 09/17/2024 12:24 PM CDT Plan of Treatment Upcoming Encounters Date Type Department Care Team (Late st Contact Info) Description 05/14/2025 2:15 PM CDT Office Visit [facility] Weight Management Services [address], [address] [place] [address] Laney Bernabe, PUBLIC RELATIONS-TEST BORE HELPER [address] [place] [address] 09/17/2025 1:00 PM CDT Office Visit [facility] Weight Management Services [address], [address] [place] [address] Laney Bernabe APRN-TEST BORE HELPER [address] [place] [address] Health Maintenance Due Date Last [...] (Done Outside Per Report) MAMMOGRAM 03/23/2020 03/23/2018, 1205/2016, 09/25/2015, Additional history exists Respiratory Syncytial Virus (RSV) Vaccine Pt: or over 60 yrs (1 - Risk 60-74 years 1-dose series) 2020 COLONOSCOPY - COLON CA SCREENING 06/27/2020 06/27/2010 (Done Outside Per Report) COVID-19 VACCINE (3 - 2023- season) 2024 03/05/2021, 02/06/2021 DTAP/TDAP/TD VACCINES (2 - Td or Tdap) 08/27/2024 08/27/2014 DEPRESSION SCREENING 11/27/2024 LIPID TESTING 12/02/2024 12/02/2019, 12/0 12/2018, 10/05/2017, Additional history exists INFLUENZA VACCINE (Season Ended) 2025 08/29/2018, 08/30/2017, 09/15/2015, Additional history exists COLOGUARD (AGES 45-75) - COLON CA SCREENING 02/10/2027 02/11/2024 Colorectal Cancer Screening 02/10/2027 SCREENING FOR DIABETES 06/05/2027 , 08/29/2023, 09/13/2022, Additional history exists BONE DENSITY TESTING Completed 03/23/2018 HIB VACCINE Aged Out No longer eligi ble based on patient's age to complete this topic HPV VACCINE Aged Out No longer eligi ble based on patient's age to complete this topic MENINGOCOCCAL (Group B) VACCINE SHARED DECISION-MAKING Aged Out No longer eligible based on patient's age to complete this topic MENINGOCOCCAL GROUPS A/C/Y/W VACCINE Aged Out No longer eligible based on patient's age to complete this topic Procedures Procedure Name Priority Date/Time Associated Diagnosis Comments COMPREHENSIVE METABOLIC PANEL Routine 06/05/2024 12:32 PM CDT History of gastric bypass LIPID PROFILE Routine 12/02/2019 3:58 PM SPRINKLING TRUCK DRIVER Dyslipidemia Hypothyroidism, unspecified type DEXA BONE DENSITY AXIAL SKELETON Routine 03/23/2018 9:04 AM CDT Post-menopausal MAMMO BILAT SCREENING Routine 03/23/2018 8:54 AM CDT Screening for breast cancer from Last 3 Months or Most Recently Relevant to Health Maintenance Results * (ABNORMAL) COMPREHENSIVE METABOLIC PANEL (06/05/2024 12:32 PM CDT) BUN 16 7 - 26 mg/dL 06/05/2024 1:54 PM CDT [facility] Creatinine 0.89 0.56 - 0.96 mg/dL 06/05/2024 1:54 PM CDT [facility] Sodium 142 136 - 145 mmol/L 06/05/2024 1:54 PM CDT [facility] Potassium 4.4 3.5 - 4.5 mmol/L 06/05/2024 1:54 PM [facility] Chloride 106 98 - 107 mmol/L 06/05/2024 1:54 PM [facility] CO2 28 22 - 29 mmol/L 06/05/2024 1:54 PM [facility] Glucose 85 70 - 115 mg/dL 06/05/2024 1:54 PM [facility] Calcium 9.6 8.4 - 10.2 mg/dL 06/05/2024 1:54 PM [facility] Protein Total 7.7 6.0 - 8.3 g/dL 06/05/2024 1:54 PM [facility] Albumin 4.0 3.4 - 5.0 g/dL 06/05/2024 1:54 PM [facility] Bilirubin Total 0.6 0.2 - 1.2 mg/dL 06/05/2024 1:54 PM [facility] Alkaline Phosphatase 96 40 - 150 U/L 06/05/2024 1:54 PM [facility] ALT 15 5 - 55 U/L 06/05/2024 1:54 PM [facility] AST 24 5 - 34 U/L 06/05/2024 1:54 PM [facility] Anion Gap 8 6 - 16 06/05/2024 1:54 PM [facility] BUN/Creatinine Ratio 18 7 - 23 06/05/2024 1:54 PM [facility] Osmolality Calculated 294 275 - 295 mOsm/kg 06/05/2024 1:54 PM [facility] Albumin/Globulin Ratio 1.1 1.1 - 2.3 06/05/2024 1:54 PM [facility] eGFR by CKD-EPI 72(L) >=90 mL/min/1.7 3 m2 06/05/2024 1:54 PM [facility] Blood BLOOD SPECIMEN / Unknown Lab Venipuncture / Unknown 06/05/2024 12:32 PM CDT 06/05/2024 1:22 PM T us Mateo Dash MD LAB - CHEMISTRY ORDERABLES Annette l Result [facility] [address] [place] [address], [facility] [phone] * (ABNORMAL) LIPID PROFILE (12/02/2019 3:58 PM SPRINKLING TRUCK DRIVER) Cholesterol Total 232(H) <200 mg/dL 12/02/2019 4:42 PM [facility] HDL 55 >40 mg/dL 12/02/2019 4:42 PM [facility] Comment: ATP III Classification of HDL Cholesterol: <40 mg/dL: Considered a major risk factor. >60 mg/dL: Considered a negative risk factor. LDL Calculated 151(H) <100 mg/dL 12/02/2019 4:42 PM [facility] Comment: ATP III Classification of LDL Cholesterol: <100 mg/dL: Optimal 100 - 129 mg/dL: Near Optimal/Above Optimal 130 - 159 mg/dL: Borderline High 160 - 189 mg/dL: High >190 mg/dL: Very High Triglycerides 128 <150 mg/dL 12/02/2019 4:42 PM [facility] Comment: ATP III Classification of Triglycerides: <150 mg/dL: Normal 150 - 199 mg/dL: Borderline High 200 - 400 mg/dL: High >500 mg/dL: Very High Blood BLOOD SPECIMEN / Unknown Lab Venipuncture / Unknown 12/02/2019 3:58 PM SPRINKLING TRUCK DRIVER 12/02/2019 4:14 PM SPRINKLING TRUCK DRIVER us Ordering Provider Unlisted MD LAB - CHEMISTRY OR DERABLES Final Result Performing Organization Address [facility] Co de Phone Number [facility] [address] [place] [address] [phone] * DEXA BONE DENSITY AXIAL SKELETON (03/23/2018 9:04 AM CDT) Anatomical Region Laterality Modality Mammography 03/23/2018 10:0 0 AM CDT Narrative 03/23/2018 3:58 PM CDT Examination: Dual energy x-ray absorptiometry of the lumbar spine and hip. Clinical Indication: 57-year-old female presented today for osteoporosis screening. Findings: Detailed data from the exam is sent separately to the ordering physician and is also available on [employer], the Radiology Department's computerized picture archive system [...] ordering physician and is also available on [employer], the Radiology Department's computerized picture archive system [...] Rohan Rodas on 03/23/2018 10:02 AM . I, Dr. LUCIAN CORDERO M.D. have personally reviewed and interpreted this examination/study. This report was electronically signed by LUCIAN CORDERO M.D. on03/23/2018 3:58 PM . Sidney Mays MD DEXA ORDERABLES Final Result * MAMMO BILAT SCREENING (03/23/2018 8:54 AM CDT) Anatomical Region Laterality Modality Breast Bilateral Mammography 03/26/2018 8:30 AM CDT Impressions 03/26/2018 8:43 AM CDT IMPRESSION: No mammographic evidence of malignancy. ASSESSMENT: BI-RADS Category 1: Negative mammogram. RECOMMENDATION: Bilateral screening mammogram in one year. Dictated by Maxim Salgado (Training Representative) I, Dr. EVIN GRISSOM M.D. have personally [...] appearance compared with the prior study. Warren Pcaheco MD MAMMO ORDERABLES Final Resul t from Last 3 Months or Most Recently Relevant to Health Maintenance Insurance [employer] Advance Directives * Full Code (Latest Code Status on File) Date Activated Date Inactivated Comments 06/28/2021 12:41 PM 06/29/2021 7:19 PM Care Teams Composing Room Supervisor Relationship Specialty Start Date End Date Aiden Fu MD [address] [place] [phone] PCP - General 09/10/21
--- OUTSIDE RECORDS SUMMARY | 2025-05-13 14:53 | XMS_ITS | Encounter Summary ---
Author Organization [facility] Address [address] [place] [address] Care Team Providers Care Master Planner Name Role Phone MilagroArcenio de la paz Primary Care Provider [phone] Aiden Fu MD Primary Care Provider [phone] Aiden Fu MD Unavailable [phone] Encounter Details Date Type Department Care Team (Late Contact Info) Description 08/26/2019 Lab Requisition [facility] [address] [place] [id number] Unlisted, Ordering Provider, Social History Tobacco Use Types Packs/Day Years Used Date Smoking Tobacco: Never Smokeless Tobacco: Never Alcohol Use Standard Drinks/Week Comments Yes 1.7 (1 standard drink = 0.6 oz p ure alcohol) about 1x/mo Comments No Sex and Gender Information Value Date Recorded Sex Assigned at Not on file 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, [address] [place] [address] Laney Bernabe, URGENT CARE PHYSICIAN ASSISTANT-ROOF TRUSS BUILDER [address] [place] [phone] 09/17/2025 1:00 PM CDT Office Visit [facility] Health Weight Management Services [address], [address] [place] [address] Laney Bernabe URGENT CARE PHYSICIAN ASSISTANT-ROOF TRUSS BUILDER [address] [place] [address] documented as of this encounter Visit Diagnoses Not on filedocumented in this encounter Additional Health Concerns Infection Onset Date Last Indicated Resolved Time COVID-19 Under Investigation 07/13/2020 07/13/2020 07/13/2020 7:39 PM CDT documented as of this encounter Care Teams Master Planner Relationship Specialty Start Date End Date Arcenio Richardson DO [address] [place] [address] PCP - General Family Medicine 12/10/19 09/09/21 Aiden Fu MD [address] [place] [address] PCP - General 09/10/21 Aiden Fu MD [address] [place] [phone] PCP - Attributed-[facility] 03/27/23 07/14/23 documented as of this encounter
--- OUTSIDE RECORDS SUMMARY | 2025-05-13 14:53 | XMS_ITS | CONTINUITY OF CARE DOCUMENT ---
Author Name adriarakesh socorro Address Unknown Organization [facility] Office Address [address] [place] [address] [address] [place] [address] Phone [phone] Care Team Providers Care Airline Hostess Name Role Phone JAE PEOPLES, FLAQUITO Rushing Unavailable [phone]
[2025-05-13 21:12] LABS: Thyroid Stimulating Hormone 0.315 uIU/mL (0.465-4.680)
== END 2025-05-13 13:58 | disposition home or self-care (01) ==
LOC: ANHBWCLAB 14:04
PROVIDERS: PCP Nurse Practitioner Adult Health; Visit Provider Nurse Practitioner Adult Health
DX: E03.9 Hypothyroidism, unspecified (principal); M25.512 Pain in left shoulder; M54.2 Cervicalgia; W19.XXXA Unspecified fall, initial encounter
CPT/HCPCS: 36415; 72040; 73030; 84443

== ENCOUNTER 2025-07-21 11:47 | Emergency (ER) | payer MEDICARE, SELFPAY ==
--- NOTE | ~2025-07-21 | XR_ITS ---
XR knee LT min 4V 07/21/2025 12:20 Indication: Left knee pain after fall Procedure: 5 views left knee Comparison: No prior studies for comparison. Findings: Mild medial and patellofemoral compartmental osteoarthritis. No acute fracture, subluxation or dislocation. No significant joint effusion. No foreign bodies. There is mild prepatellar, infrapatellar and medial soft tissue swelling. Impression: 1: Mild osteoarthritis of the left knee. 2: Moderate prepatellar, infrapatellar and medial soft tissue swelling. Reviewed, dictated and finalized at location O. Impression: 1: Mild osteoarthritis of the left knee. 2: Moderate prepatellar, infrapatellar and medial soft tissue swelling.
[2025-07-21 11:54] VITALS: BP 167/81; PULSE 67; RESP 16; O2SAT 100
--- OUTSIDE RECORDS SUMMARY | 2025-07-21 12:16 | XMS_ITS | Clinical Summary ---
Author Organization [facility] [employer] Address [address] [place] [address] Care Team Providers Care Market Research Coordinator Name Role Phone Aiden Fu MD Primary Care Provider [phone] Source Comments [facility] [employer],non-owned Affiliates and Associated Physician Practices is amultiple site organization consisting of ambulatory clinics and hospital sitesin [place], [place], [place] and [place]. This disclosure is being madepursuant to the Care Everywhere program and may not contain all information available regarding this patient. Last updated 18.[employer] Allergies No known active allergies Medications * [...] Active Additional Information Patient not taking.Reported on 05/14/2025 triamcinolone acetonide (Kenalog) 0.1 % ointment 03/12/20 24 Active levothyroxine (Synthroid) 75 MCG tablet 05/07/20 25 Active biotin 2.5 MG tablets Take 1 (one) tablet by mouth once daily Active phentermine (Adipex-P) 37.5 MG tablet TAKE ONE TABLET BY MOUTH EVERY DAY BEFORE BREAKFAST 30 tablet 07/11/20 25 Active phentermine (Adipex-P) 37.5 MG tablet TAKE ONE TABLET BY MOUTH EVERY DAY BEFORE BREAKFAST 30 tablet 06/03/20 25 025 Discontinued Active Problems Problem Noted [...] Encounters Date Type Department Care Team Description 07/09/2025 Refill [facility] [address] [place] [address], [facility] [address] [place] [address] Laney Bernabe APRN-CNP Refill Request 06/02/2025 Refill [facility] [address] [place] [address], [facility] [address] [place] [address] Laney Bernabe APRN-CNP Refill Request 05/15/2025 Telephone [facility] [address] [place] [address], [facility] [address] [place] [address] Laney Bernabe APRN-CNP Medication Prior Auth Request 05/14/2025 2:15 PM CDT Office Visit [facility] [address] [place], [address] [place] [address] Laney Bernabe APRN-CNP AVINASH (obstructive sleep apnea) (Primary Dx); S/P bariatric surgery; Class 1 obesity with body mass index (BMI) of 33.0 to 33.9 in adult, unspecified obesity type, unspecified whether serious comorbidity present; Encounter for medication monitoring 05/07/2025 Refill [facility] [address] [facility] [place], [address] [place] [address] Laney Bernabe APRN-CNP Refill Request from Last 3 Months Immunizations [...] Frequency of Alcohol Consumption 2-4 times a mon2020 Average Number of Drinks Not on file 020 Frequency of Binge Drinking Not on file 09/27 Comments No Sex and Gender Information Value Date Recorded Sex Assigned at Not on file Legal Sex Female 4:56 AM GENERAL AGENT Gender Identity Not on file Sexual Orientation Straight 06/09/2021 2: 00 PM CDT 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 Not on file Not on file Last Filed Vital Signs Vital Sign Reading Time Taken Comments Blood Pressure 120/76 05/14/2025 2:03 PM CDT Pulse 85 05/14/2025 2:03 PM CDT Temperature 36.2 C (97.1 F) 05/14/2025 2:03 PM CDT Respiratory Rate 16 08/22/2023 1:19 PM CDT Oxygen Saturation 97% 05/14/2025 2:03 PM CDT Inhaled Oxygen Concentration - - Weight 87.4 kg (192 lb 9.6 oz) 05/14/2025 2:03 P M CDT Height 162.6 cm (5' 4) 05/14/2025 2:03 PM CDT Body Mass Index 33.06 05/14/2025 2:03 PM CDT Plan of Treatment Upcoming Encounters Date Type Department Care Team (Late st Contact Info) Description 07/30/2025 2:30 PM CDT Office Visit [facility] [address] [place] [address], [address] [address] Laney Bernabe APRN-EXPLOSIVE ORDNANCE DISPOSAL SPECIALIST [address] [place] [phone] 09/17/2025 1:00 PM CDT Office Visit [facility] [id number] [place] [address], [address] [place] [address] Laney Bernabe APRN-EXPLOSIVE ORDNANCE DISPOSAL SPECIALIST [address] [place] [phone] Health Maintenance Due Date Last Done Comments COLON MONITORING [address] CT COLONOGRAPHY - COLON CA SCREENING 1960 FIT - COLON CA SCREENING 1960 FLEX SIG - COLON CA SCREENING 1960 MEDICARE AWV 12 MONTHS 1960 HIV SCREENING 1975 HEPATITIS C SCREENING 03/26/1978 PNEUMOCOCCAL VACCINE 50+ (1 of 1 - PCV) 2010 ZOSTER VACCINE (1 of 2) 2010 HEPATITIS B VACCINE (2 of 3 - 19+ 3-dose series) 04/24/2011 03/27/2011 PAP SMEAR 11/29/2019 11/29/2016 (Done Outside Per Report) MAMMOGRAM 03/23/2020 03/23/2018, 120 05/2016, 09/25/2015, Additional history exists Respiratory Syncytial Virus (RSV) Vaccine Pt: or over 60 yrs (1 - Risk 60-74 years 1-dose series) 2020 COLONOSCOPY - COLON CA SCREENING 06/27/2020 06/27/2010 (Done Outside Per Report) COVID-19 VACCINE (3 - 2023- season) 2024 03/05/2021, 02/06/2021 DTAP/TDAP/TD VACCINES (2 - Td or Tdap) 08/27/2024 08/27/2014 DEPRESSION SCREENING 11/27/2024 LIPID TESTING 12/02/2024 12/02/2019, 12/2018, 10/05/2017, Additional history exists INFLUENZA VACCINE (#1) 2025 8, 08/30/2017, 09/15/2015, Additional history exists COLOGUARD (AGES 45-75) - COLON CA SCREENING 02/10/2027 02/11/2024 Colorectal Cancer Screening 02/10/2027 SCREENING FOR DIABETES 06/05/2027 4, 08/29/2023, 09/13/2022, Additional history exists BONE DENSITY [...] bypass LIPID PROFILE Routine 12/02/2019 3:58 PM GENERAL AGENT Dyslipidemia Hypothyroidism, unspecified type DEXA BONE DENSITY AXIAL SKELETON Routine 03/23/2018 9:04 AM CDT Post-menopausal MAMMO BILAT SCREENING Routine 03/23/2018 8:54 AM CDT Screening for breast cancer from Last 3 Months or Most Recently Relevant to Health Maintenance Results * (ABNORMAL) COMPREHENSIVE METABOLIC PANEL (06/05/2024 12:32 PM CDT) BUN 16 7 - 26 mg/dL 06/05/2024 1:54 PM [facility] Creatinine 0.89 0.56 - 0.96 mg/dL 06/05/2024 1:54 PM [facility] Sodium 142 136 - 145 mmol/L 06/05/2024 1:54 PM [facility] Potassium 4.4 3.5 - 4.5 mmol/L 06/05/2024 1:54 PM [facility] Chloride 106 98 - 107 mmol/L 06/05/2024 1:54 PM [facility] CO2 28 22 - 29 mmol/L 06/05/2024 1:54 PM [facility] Glucose 85 70 - 115 mg/dL 06/05/2024 1:54 PM [facility] Calcium 9.6 8.4 - 10.2 mg/dL 06/05/2024 1:54 PM [facility] Protein Total 7.7 6.0 - 8.3 g/dL 06/05/2024 1:54 PM [facility] Albumin 4.0 3.4 - 5.0 g/dL 06/05/2024 1:54 PM [facility] Bilirubin Total 0.6 0.2 - 1.2 mg/dL 06/05/2024 1:54 PM [facility] Alkaline Phosphatase 96 40 - 150 U/L 06/05/2024 1:54 PM [facility] ALT 15 5 - 55 U/L 06/05/2024 1:54 PM [facility] AST 24 5 - 34 U/L 06/05/2024 1:54 PM [facility] Anion Gap 8 6 - 16 06/05/2024 1:54 PM [facility] BUN/Creatinine Ratio 18 7 - 23 06/05/2024 1:54 PM [facility] Osmolality Calculated 294 275 - 295 mOsm/kg 06/05/2024 1:54 PM [facility] Albumin/Globulin Ratio 1.1 1.1 - 2.3 06/05/2024 1:54 PM [facility] eGFR by CKD-EPI 72(L) >=90 mL/min/1.7 3 m2 06/05/2024 1:54 PM [facility] Blood BLOOD SPECIMEN / Unknown Lab Venipuncture / Unknown 06/05/2024 12:32 PM T 06/05/2024 1:[address] [facility] us Mateo Dash MD LAB - CHEMISTRY ORDERABLES Annette l Result [facility] [address] [place] [phone], [facility] [phone] * (ABNORMAL) LIPID PROFILE (12/02/2019 3:58 PM GENERAL AGENT) Cholesterol Total 232(H) <200 mg/dL 12/02/2019 4:42 PM [facility] HDL 55 >40 mg/dL 12/02/2019 4:42 PM [facility] Comment: ATP III Classification of HDL Cholesterol: <40 mg/dL: Considered a major risk factor. >60 mg/dL: Considered a negative risk factor. LDL Calculated 151(H) <100 mg/dL 12/02/2019 4:42 PM [facility] Comment: ATP III Classification of LDL Cholesterol: <100 mg/dL: Optimal 100 - 129 mg/dL: Near Optimal/Above Optimal 130 - 159 mg/dL: Borderline High 160 - 189 mg/dL: High >190 mg/dL: Very High Triglycerides 128 <150 mg/dL 12/02/2019 4:42 PM GENERAL AGENT [facility] Comment: ATP III Classification of Triglycerides: <150 mg/dL: Normal 150 - 199 mg/dL: Borderline High 200 - 400 mg/dL: High >500 mg/dL: Very High Blood BLOOD SPECIMEN / Unknown Lab Venipuncture / Unknown 12/02/2019 3:58 PM GENERAL AGENT 12/02/2019 4:14 PM GENERAL AGENT us Ordering Provider Unlisted MD LAB - CHEMISTRY OR DERABLES Final Result [address] [phone] * DEXA BONE DENSITY AXIAL SKELETON (03/23/2018 9:04 AM CDT) Anatomical Region Laterality Modality Mammography 03/23/2018 10:0 0 AM CDT Narrative 03/23/2018 3:58 PM CDT Examination: Dual energy x-ray absorptiometry of the lumbar spine and hip. Clinical Indication: 57-year-old female presented today for osteoporosis screening. Findings: Detailed data from the exam is sent separately to the ordering physician and is also available on [employer], the Radiology Department's computerized picture archive system [...] ordering physician and is also available on [employer], the Radiology Department's computerized picture archive system [...] in one year. Dictated by Maxim Salgado (Ultrasonic Cleaner) Dr. EVIN Watson M.D. have personally reviewed [...] mammographic appearance compared with the prior study. us Warren Pacheco MD MAMMO ORDERABLES Final Resul t from Last 3 Months or Most Recently Relevant to Health Maintenance Insurance MEDICARE MEDICARE SUPPLEMENT PAYOR GENERIC Advance Directives * Full Code (Latest Code Status on File) Date Activated Date Inactivated Comments 06/28/2021 12:41 PM 06/29/2021 7:19 PM Care Teams Market Research Coordinator Relationship Specialty Start Date End Date Aiden Fu MD [address] [place] [phone] PCP - General 09/10/21
--- OUTSIDE RECORDS SUMMARY | 2025-07-21 12:16 | XMS_ITS | Encounter Summary ---
Author Organization [facility] Address [address] [place] [address] Care Team Providers Care Building Construction Estimator Name Role Phone MilagroArcenio de la paz Primary Care Provider [phone] Aiden Fu MD Primary Care Provider [phone] Aiden Fu MD Unavailable [phone] Encounter Details Date Type Department Care Team (Late Contact Info) Description 08/26/2019 Lab Requisition [facility] [address] [place] [id number] Unlisted, Ordering Provider, Social History Tobacco Use Types Packs/Day Years Used Date Smoking Tobacco: Never Smokeless Tobacco: Never Alcohol Use Standard Drinks/Week Comments Yes 1.7 (1 standard drink = 0.6 oz p ure alcohol) about 1x/mo Comments No Sex and Gender Information Value Date Recorded Sex Assigned at Not on file 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 Weight Management Services [address], [address] [place] [address] Laney Bernabe, PHOTOCOPYING EQUIPMENT MECHANIC-MANAGER ADULT [address] [place] [phone] 09/17/2025 1:00 PM CDT Office Visit [facility] Weight Management Services [address], [address] [place] [address] Laney Bernabe PHOTOCOPYING EQUIPMENT MECHANIC-MANAGER ADULT [address] [facility] [address] [place] [address] documented as of this encounter Visit Diagnoses Not on filedocumented in this encounter Additional Health Concerns Infection Onset Date Last Indicated Resolved Time COVID-19 Under Investigation 07/13/2020 07/13/2020 07/13/2020 7:39 PM CDT documented as of this encounter Care Teams Building Construction Estimator Relationship Specialty Start Date End Date Arcenio Richardson DO [address] [place] [address] PCP - General Family Medicine 12/10/19 09/09/21 Aiden Fu MD [address] [place] [address] PCP - General 09/10/21 Aiden Fu MD [address] [place] [phone] PCP - Attributed-[facility] 03/27/23 07/14/23 documented as of this encounter
--- NOTE | 2025-07-21 12:24 | ED_ITS ---
HPI - Extremity Injury (Lower) General Chief Complaint: Extremity Injury, Lower Stated Complaint: Fall Injury,Left Knee Injury Source: patient Mode of arrival: ambulatory Limitations: no limitations History of Present Illness HPI Narrative: 65 y/o female presented for c/o left knee pain, swelling and bruising. Pt's initial injury was one week ago when she fell and struck the knee on a ramp. She says the swelling and bruising is improving since that injury. However 2 days ago, she kneeled down on both knees and felt sharp pain, and it is swelling more again. Endorses tightness when bending the knee. Able to walk on the leg and straighten the knee. Denies numbness, tingling or weakness. Taking Tylenol. Related Data Home Medications ?Medication ?Instructions ?Recorded ?Confirmed ?Last Taken ?Type venlafaxine 75 mg capsule,extended 37.5 mg PO DAILY 05/13/25 Unknown History release 24 hr vitamin E 1,000 unit tablet 1 tablet PO DAILY 06/09/22 05/13/25 Unknown History calcium carbonate 600 mg PO DAILY 04/06/23 Unknown History vitamin B complex (B 1 tablet PO DAILY 04/06/23 0 05/13/25 Unknown History Complex-Vitamin B12 tablet) escitalopram oxalate 10 mg tablet 10 mg PO DAILY 02/0305/13/25 Unknown History Allergies Allergy/AdvReac Type Severity Reaction Status Date / Time No Known Allergies Allergy Verified 05/13/25 13:40 Review of Systems Review of Systems: CONSTITUTIONAL: Denies body aches, fever, chills EYES: Denies visual changes ENT: Denies rhinorrhea, congestion CARDIOVASCULAR: Denies chest pain, palpitations, or edema. RESPIRATORY: Denies cough or dyspnea. SKIN: Denies rash, itching, or wounds. MUSCULOSKELETAL: reports left knee pain NEUROLOGIC: Denies headache, numbness, tingling, or weakness. All systems reviewed & are unremarkable except as noted in HPI and below PMFSH Past Medical History Medical History Anxiety History of blood clots History of miscarriage Thyroid disorder Ulna fracture Surgical History Surgical History History of bladder surgery History of carpal tunnel release History of cholecystectomy History of removal of laparoscopic gastric banding device Hx of gastric bypass LAP-BAND surgery status S/P dilation and curettage Family History Family History (Reviewed 08/05/24 @ 11:16 by Evon Simeon [facility]) Grandparent Family history of premature coronary heart disease, Onset Age: 45 Family history of malignant neoplasm of breast, Onset Age: 45 Diabetes mellitus Mother Hypertension Family history of elevated blood lipids Family history of coronary artery disease Family history of cardiovascular disease Sibling Hypertension Family history of elevated blood lipids Family history of development disorder Family history of cardiovascular disease Father Family history of coronary artery disease Family history of cardiovascular disease Social History Social History (Reviewed 08/05/24 @ 11:16 by Evon Simeon [facility]) Smoking status: Never smoker Second hand tobacco smoke exposure: Yes Alcohol intake: current Alcohol use details: 1 time a month Substance use: never Lack of Transportation: No Lack of Food: Never True Current Housing: I Have Housing Concerned About Future Housing: No Difficulty Paying Gas/Electric Bills: No Difficulty Paying for Meds: No Currently Unemployed: No Education: Trade/Vocational Certificate Difficulty w/ Childcare or Family Care: No Comments At time of signature, I have reviewed and agree with nursing past medical, surgical, social and family history unless otherwise noted. Please see nursing chart for further information. There is no relevant family history pertinent to the presenting complaint Exam Narrative: GENERAL: Well-appearing, well-nourished, and in no acute distress. CHEST: Speaks in full sentences. No respiratory distress. HEART: Regular rate and rhythm. Normal and equal peripheral pulses. EXTREMITIES: Left knee contusion and swelling noted. Bruising fading medially. Patient is able to bear weight and ambulate. No erythema or warmth. Patient is unable to tolerate full flexion due to swelling, tolerates extension, internal and external rotation. Tenderness to proximal aspect of the medial/lateral patella areas. No tenderness to palpation of the patella, over the infrapatellar tendon, over the proximal fibular head or quadriceps tenderness. Distal motor and neurovascular status intact. SKIN: Warm, dry NEURO: Alert and oriented x3. PSYCH: Normal mood and affect Course Course Emergency Course: Patient is aware of diagnosis, understands and agrees to treatment plan. Anticipatory guidance given. Patient agrees to follow-up as directed and is aware of reasons to seek care at the emergency department. Portions of this record may have been created with voice recognition software Level of Care: Express Care Visit Vital Signs Vital signs: Vital Signs Pulse Rate 67 07/21/25 11:54 Respiratory Rate 16 07/21/25 11:54 Blood Pressure 167/81 H 07/21/25 11:54 Pulse Oximetry 100 07/21/25 11:54 Oxygen Delivery Room Air 07/21/25 11:54 Pulse Rate 67 07/21/25 11:54 Respiratory Rate 16 07/21/25 11:54 Blood Pressure 167/81 H 07/21/25 11:54 Pulse Oximetry 100 07/21/25 11:54 Oxygen Delivery Room Air 07/21/25 11:54 Reviewed MDM - Extremity Injury (Lower) MDM Narrative Medical decision making narrative: Discussed physical exam findings and x-ray. Anjum wrap applied. Patient will follow-up with ortho. Advised supportive measures and signs/symptoms to go to the ER. Pt is appropriate for outpt treatment and f/u. Differential Diagnosis Differential diagnosis: Likely other (osteoarthritis, patella dislocation, patellar tendonitis, tendon rupture, gout, bakers cyst, septic bursitis, dvt, tibial plateau fracture, ligament injury) Imaging Data Radiologist's impression: Patient: Ann Marie Rae : 1960 MR#: [id number] Age: 65 Acct:[id number] Loc: [facility] ADM Date: 07/21/25Attending Dr: Ordering Physician: Micaela Clark APRN Date of Service: 07/21/25 Procedure(s): XR knee LT min 4V Accession Number(s): [id number] cc: Micaela Clark APRN; Sherri Starr APRN~ XR knee LT min 4V 07/21/2025 12:20 Indication: Left knee pain after fall Procedure: 5 views left knee Comparison: No prior studies for comparison. Findings: Mild medial and patellofemoral compartmental osteoarthritis. No acute fracture, subluxation or dislocation. No significant joint effusion. No foreign bodies. There is mild prepatellar, infrapatellar and medial soft tissue swelling. Impression: 1: Mild osteoarthritis of the left knee. 2: Moderate prepatellar, infrapatellar and medial soft tissue swelling. Discharge Plan Discharge Clinical Impression: Contusion of knee, left Patient Disposition: Home Condition: Stable Instructions: Antibiotic Form, Knee Pain (ED) Additional Instructions: Rest and elevate the left leg; bear weight as tolerated Apply ice 15-20 minute intervals several times a day Keep it wrapped with ANJUM or use a soft knee splint Tylenol 1000mg every 8 hours as needed Follow up with your primary care provider and beverage specialist as needed Go to the ER for worsening symptoms or concerns Patient Language: Kittitian Prescriptions: No Action venlafaxine 75 mg capsule,extended release 24hr 37.5 mg PO DAILY vitamin E 1,000 unit Tablet 1 tablet PO DAILY escitalopram oxalate 10 mg tablet 10 mg PO DAILY vitamin B complex [B Complex-Vitamin B12] Tablet 1 tablet PO DAILY calcium carbonate 600 mg calcium (1,500 mg) tablet 600 mg PO DAILY oxybutynin chloride 5 mg tablet See Rx Instructions .ROUTE .COMPLEX Qty: 180 1RF Dose Instruction: TAKE ONE TABLET BY MOUTH TWICE A DAY Rx Instructions: TAKE ONE TABLET BY MOUTH TWICE A DAY levothyroxine 75 mcg tablet See Rx Instructions .ROUTE .COMPLEX Qty: 90 1RF Dose Instruction: TAKE ONE TABLET BY MOUTH EVERY DAY Rx Instructions: TAKE ONE TABLET BY MOUTH EVERY DAY Follow-up/Referrals: Andi Garcia MD [Physician, Orthopedics] Sherri Starr APRN [Primary Care Provider, Family Practice] Time of Disposition: 12:45
== END 2025-07-21 12:48 | disposition home or self-care (01) ==
PROVIDERS: Emergency Provider Nurse Practitioner Family; PCP Nurse Practitioner Adult Health
DX: S80.02XA Contusion of left knee, initial encounter (principal); W19.XXXA Unspecified fall, initial encounter; F41.9 Anxiety disorder, unspecified; Z86.2 Personal history of diseases of the blood and blood-forming organs and certain disorders involving the immune mechanism; Z98.84 Bariatric surgery status
CPT/HCPCS: 73564; 99213; G0463

== ENCOUNTER 2025-08-07 14:33 | Outpatient (CLI) | payer MEDICARE, SELFPAY ==
[2025-08-07 19:17] LABS: Hematocrit 40.7 % (37.0-47.0); Hemoglobin 12.7 g/dL (12.0-15.0); Mean Corpuscular HGB Conc 31.2 g/dl (32-36); Mean Corpuscular Hemoglobin 29.9 pg (26-34); Mean Corpuscular Volume 95.8 fl (80-100); Platelet Count Result 219 k/mm3 (150-375); Red Blood Count 4.25 M/mm3 (4.2-5.4); White Blood Count 4.7 K/mm3 (4.5-10.0)
[2025-08-07 19:34] LABS: Alanine Aminotransferase 18 U/L (6-35); Albumin Level 4.3 g/dL (3.5-5.1); Alkaline Phosphatase 95 U/L (38-126); Anion Gap 5 mmol/L (4-12); Aspartate Amino Transferase 41 U/L (14-36); Bilirubin,Total 0.5 mg/dL (0.2-1.3); Blood Urea Nitrogen 13 mg/dL (7-17); Calcium 9.1 mg/dL (8.4-10.2); Carbon Dioxide 31 mmol/L (22-30); Chloride 104 mmol/L (98-107); Cholesterol 198 mg/dL (0-200); Estimated Glomerular Filt Rate > 60; Glucose 78 mg/dL (65-110); HDL Direct 69 mg/dL; Potassium 4.4 mmol/L (3.4-5.0); Sodium 140 mmol/L (137-145); Total Protein 7.8 g/dL (6.3-8.2); Triglycerides 80 mg/dL (<150)
[2025-08-07 20:05] LABS: Thyroid Stimulating Hormone 0.195 uIU/mL (0.465-4.680)
[2025-08-07 20:55] LABS: Hemoglobin A1C 5.3 % (<5.7)
== END 2025-08-07 14:34 | disposition home or self-care (01) ==
LOC: ANHBWCLAB 14:35
PROVIDERS: PCP Nurse Practitioner Adult Health; Visit Provider Nurse Practitioner Adult Health
DX: E03.9 Hypothyroidism, unspecified (principal); R73.09 Other abnormal glucose; E66.9 Obesity, unspecified; Z68.34 Body mass index [BMI] 34.0-34.9, adult
CPT/HCPCS: 36415; 80053; 80061; 83036; 84443; 85027